=== PATIENT | male | born 1960 | race Two or more races ===

== ENCOUNTER 2018-02-03 13:14 | Inpatient (IN) | payer MEDICAID ==
[~2018-02-03] VITALS: Ht 172.7 cm; Wt 103.3 kg
[2018-02-03] MEDS ORDERED: ONDANSETRON HCL 4 MG/2 ML VIAL IV ONE (13:30)
[2018-02-03] MEDS ORDERED: ASPirin 81 mg TAB PO ONE (13:30)
[2018-02-03 13:52] LABS: Basophils # (auto) 0.1 uL; Eosinophils # (auto) 0.2 uL; Eosinophils % (auto) 3.1 % (0.0-7.0); Hematocrit 44.6 % (41.0-53.0); Hemoglobin 15.1 g/dL (13.5-17.5); Lymphocytes # (auto) 2.5 uL; Lymphocytes % (auto) 32.7 % (10.0-50.0); Mean Corpuscular Hemoglobin 29.8 pg (28.0-32.0); Mean Corpuscular Hgb Conc. 33.9 g/dL (32.0-36.0); Mean Corpuscular Volume 87.7 fL (80.0-100.0); Monocytes # (auto) 0.6 uL; Monocytes % (auto) 8.4 % (0.0-12.0); Neutrophils # (auto) 4.2 uL; Neutrophils % (auto) 54.8 % (37.0-80.0); Platelet Count (auto) 252 10^3/uL (140-450); Red Blood Cells 5.09 10^6/uL (4.5-5.90); Red Cell Distribution Width 13.4 % (11.8-14.3); White Blood Cell 7.7 10^3/uL (4.4-10.8)
[2018-02-03 14:10] LABS: Alanine Aminotransferase 49 U/L (16-61); Albumin 3.5 g/dL (3.4-5.0); Anion Gap 13 (5-15); Aspartate Aminotransferase 22 U/L (15-37); BUN/Creatinine Ratio 11.5; Blood Urea Nitrogen 13 mg/dL (7-18); Calcium 8.1 mg/dL (8.5-10.1); Carbon Dioxide 19 mmol/L (21-32); Chloride 104 mmol/L (98-107); GFR African American 86 mL/min; GFR Non-African American 71 mL/min; Glucose 254 mg/dL (74-106); Magnesium 1.7 mg/dL (1.6-2.6); Sodium 136 mmol/L (136-145)
[2018-02-03 14:11] LABS: INR 1.01 (0.9-1.15); Prothrombin Time 10.8 sec (9.27-12.13)
[2018-02-03 14:15] LABS: Alkaline Phosphatase 94 U/L (45-117); Bilirubin, Total 0.8 mg/dL (0.2-1.0); Total Protein 7.7 g/dL (6.4-8.2)
[2018-02-03] MEDS ORDERED: DEXTROSE (50%) 50ML SYRG IV PRN (19:00)
[2018-02-03] MEDS ORDERED: ZOLPIDEM TARTRATE 5 MG TAB PO PRN (19:00)
[2018-02-03] MEDS ORDERED: MORPHINE SULFATE 8mg/ml INJ SDV IV PRN ×2 (19:00)
[2018-02-03] MEDS ORDERED: ACETAMINOPHEN 325 MG TAB PO PRN (19:00)
[2018-02-03] MEDS ORDERED: ALUM & MAG HYDROX-SIMETH LIQ(MAALOX) 30 ML PO ONE (19:00)
[2018-02-03] MEDS ORDERED: NITROGLYCERIN 0.4 MG SL TAB SL PRN ×2 (19:00)
[2018-02-03] MEDS ORDERED: ONDANSETRON HCL 4 MG/2 ML VIAL IV PRN (19:00)
[2018-02-03] MEDS ORDERED: LORazepam 0.5 MG TAB PO PRN (19:00)
[2018-02-03 20:05] VITALS: BP 111/66
[2018-02-03] MEDS: SODIUM CHLOR 0.9% PF (SALINE LOCK) 10ML VIAL/SYR IV SCH (21:57)
[2018-02-03] MEDS: ATORVASTATIN 20 MG TAB PO SCH (21:58)
[2018-02-03] MEDS: CARVEDILOL 3.125 MG TAB PO SCH (21:58)
[2018-02-03] MEDS: ACCU-CHEK COMFORT CURVE STRIP VI SCH (21:58)
[2018-02-03] MEDS: ENALAPRIL MALEATE 2.5 MG TAB PO SCH (21:58)
[2018-02-03 22:00] VITALS: BP 111/66
[2018-02-03] MEDS: InsuLIN REG 1unit/0.01ml Soln (100units/ml) SC SCH (22:04)
[2018-02-03] MEDS ORDERED: METF-372 PO (23:18)
[2018-02-04 03:20] VITALS: BP 111/66
[2018-02-04 05:00] VITALS: BP 98/66
[2018-02-04 05:57] LABS: Basophils # (auto) 0.1 uL; Basophils % (auto) 0.9 % (0.0-2.0); Eosinophils # (auto) 0.3 uL; Eosinophils % (auto) 4.3 % (0.0-7.0); Hematocrit 41.3 % (41.0-53.0); Hemoglobin 14.2 g/dL (13.5-17.5); Lymphocytes # (auto) 2.7 uL; Lymphocytes % (auto) 35.5 % (10.0-50.0); Mean Corpuscular Hgb Conc. 34.4 g/dL (32.0-36.0); Mean Corpuscular Volume 87.1 fL (80.0-100.0); Monocytes # (auto) 0.7 uL; Monocytes % (auto) 9.4 % (0.0-12.0); Neutrophils # (auto) 3.8 uL; Neutrophils % (auto) 49.9 % (37.0-80.0); Nucleated Red Blood Cells % 0.2 %; Platelet Count (auto) 208 10^3/uL (140-450); Red Blood Cells 4.74 10^6/uL (4.5-5.90); Red Cell Distribution Width 13.1 % (11.8-14.3); White Blood Cell 7.6 10^3/uL (4.4-10.8)
[2018-02-04 06:16] LABS: Alanine Aminotransferase 42 U/L (16-61); Albumin 3.2 g/dL (3.4-5.0); Alkaline Phosphatase 87 U/L (45-117); Anion Gap 10 (5-15); Aspartate Aminotransferase 19 U/L (15-37); BUN/Creatinine Ratio 16.9; Bilirubin, Total 0.5 mg/dL (0.2-1.0); Blood Urea Nitrogen 15 mg/dL (7-18); Calcium 8.2 mg/dL (8.5-10.1); Carbon Dioxide 25 mmol/L (21-32); Chloride 102 mmol/L (98-107); Cholesterol 181 mg/dL (< 200); GFR African American 113 mL/min; GFR Non-African American 93 mL/min; Glucose 174 mg/dL (74-106); HDL Cholesterol 29 mg/dL (40-59); LDL Cholesterol 120 mg/dL (< 100); Magnesium 2.1 mg/dL (1.6-2.6); Potassium 3.8 mmol/L (3.5-5.1); Sodium 137 mmol/L (136-145); Total Protein 6.9 g/dL (6.4-8.2); Triglycerides 307 mg/dL (< 150)
[2018-02-04] MEDS: SODIUM CHLOR 0.9% PF (SALINE LOCK) 10ML VIAL/SYR IV SCH ×3 (06:23→21:42)
[2018-02-04] MEDS: ACCU-CHEK COMFORT CURVE STRIP VI SCH ×4 (06:29→21:44)
[2018-02-04] MEDS: InsuLIN REG 1unit/0.01ml Soln (100units/ml) SC SCH ×4 (06:29→21:54)
[2018-02-04] MEDS: ALBUTEROL SULF 2.5 MG/0.5ML(0.5%) NEB SOLN NEB SCH ×4 (08:00→20:09)
[2018-02-04 09:00] VITALS: BP 106/62
[2018-02-04] MEDS: CLOPIDOGREL BISULFATE 75 MG TAB PO SCH (09:43)
[2018-02-04] MEDS: DOCUSATE SOD 100 MG CAP PO SCH (09:43)
[2018-02-04] MEDS: ASPirin 81 mg TAB PO SCH (09:43)
[2018-02-04] MEDS: CARVEDILOL 3.125 MG TAB PO SCH ×2 (09:45→21:43)
[2018-02-04] MEDS: ENALAPRIL MALEATE 2.5 MG TAB PO SCH ×2 (09:46→21:44)
[2018-02-04 10:38] LABS: Urine Bacteria NONE SEEN /hpf (None Seen); Urine Blood Negative /uL (Negative); Urine Mucus FEW (None Seen); Urine Specific Gravity 1.022 (1.001-1.035); Urine WBC 1 /hpf (0 - 3)
[2018-02-04 13:00] VITALS: BP 102/55
[2018-02-04 16:53] VITALS: BP 110/74
[2018-02-04] MEDS: ATORVASTATIN 20 MG TAB PO SCH (21:43)
[2018-02-04 22:03] VITALS: BP 106/64
[2018-02-05] MEDS: ALBUTEROL SULF 2.5 MG/0.5ML(0.5%) NEB SOLN NEB SCH ×3 (00:38→11:57)
[2018-02-05 04:36] VITALS: BP 97/53
[2018-02-05] MEDS: ACCU-CHEK COMFORT CURVE STRIP VI SCH ×2 (06:08→12:25)
[2018-02-05] MEDS: SODIUM CHLOR 0.9% PF (SALINE LOCK) 10ML VIAL/SYR IV SCH (06:08)
[2018-02-05] MEDS: InsuLIN REG 1unit/0.01ml Soln (100units/ml) SC SCH ×2 (06:22→12:25)
[2018-02-05 08:36] VITALS: BP 107/73
[2018-02-05] MEDS: CARVEDILOL 3.125 MG TAB PO SCH (10:00)
[2018-02-05] MEDS: ENALAPRIL MALEATE 2.5 MG TAB PO SCH (10:00)
[2018-02-05 10:13] VITALS: BP 127/85
[2018-02-05] MEDS: DOCUSATE SOD 100 MG CAP PO SCH (12:23)
[2018-02-05] MEDS: ASPirin 81 mg TAB PO SCH (12:23)
[2018-02-05] MEDS: CLOPIDOGREL BISULFATE 75 MG TAB PO SCH (12:23)
[2018-02-05 12:57] VITALS: BP 103/76
[2018-02-05 14:34] VITALS: BP 103/76
== END 2018-02-05 17:20 | disposition home or self-care (01) | DRG 198 ==
LOC: ER 13:14 → TELE 13:15 → TELE-WESTW 20:05
PROVIDERS: ADMIT Internal Medicine; ATTEND Family Medicine
DX: I25.110 Atherosclerotic heart disease of native coronary artery with unstable angina pectoris (principal); E11.21 Type 2 diabetes mellitus with diabetic nephropathy; D68.69 Other thrombophilia; E11.22 Type 2 diabetes mellitus with diabetic chronic kidney disease; E11.65 Type 2 diabetes mellitus with hyperglycemia; I25.2 Old myocardial infarction; I12.9 Hypertensive chronic kidney disease with stage 1 through stage 4 chronic kidney disease, or unspecified chronic kidney disease; E83.51 Hypocalcemia; N18.2 Chronic kidney disease, stage 2 (mild); E66.9 Obesity, unspecified; E78.00 Pure hypercholesterolemia, unspecified; Z82.49 Family history of ischemic heart disease and other diseases of the circulatory system; Z83.3 Family history of diabetes mellitus; Z79.899 Other long term (current) drug therapy; Z79.82 Long term (current) use of aspirin; Z79.4 Long term (current) use of insulin; Z68.34 Body mass index [BMI] 34.0-34.9, adult
CPT/HCPCS: 36415; 71045; 78452; 80053; 80061; 81001; 82962; 83036; 83735; 83880; 84443; 84484; 85025; 85379; 85610; 85730; 93005; 93017; 93306; 94640; 94761; 96374; J1815; J2405

== ENCOUNTER 2020-12-24 13:27 | Inpatient (IN) | payer MEDICARE, MEDICAID ==
[~2020-12-24] VITALS: Ht 170.2 cm; Wt 101.8 kg
[~2020-12-24 13:27] MED LIST: ALBUAER3 IN; METF-372 PO
[2020-12-24] MEDS ORDERED: SODIUM CHLORIDE 0.9% 1,000 ML IV ONE (13:45)
[2020-12-24 14:21] LABS: Basophils # (auto) 0.1 10 ^3/uL (0-0.2); Basophils % (auto) 0.7 % (0.0-2.0); Eosinophils # (auto) 0.3 10 ^3/uL (0-0.8); Eosinophils % (auto) 2.9 % (0.0-7.0); Hematocrit 49.2 % (41.0-53.0); Hemoglobin 16.9 g/dL (13.5-17.5); Lymphocytes # (auto) 2.5 10 ^3/uL (0.4-5.4); Lymphocytes % (auto) 24.1 % (10.0-50.0); Mean Corpuscular Hemoglobin 29.5 pg (28.0-32.0); Mean Corpuscular Hgb Conc. 34.2 g/dL (32.0-36.0); Mean Corpuscular Volume 86.1 fL (80.0-100.0); Monocytes # (auto) 0.7 10 ^3/uL (0-1.3); Monocytes % (auto) 7.3 % (0.0-12.0); Neutrophils # (auto) 6.7 10 ^3/uL (1.6-8.6); Nucleated Red Blood Cells % 0.1 %; Platelet Count (auto) 263 10^3/uL (140-450); Red Blood Cells 5.72 10^6/uL (4.5-5.90); Red Cell Distribution Width 12.9 % (11.8-14.3); White Blood Cell 10.3 10^3/uL (4.4-10.8)
[2020-12-24 14:35] LABS: Albumin 4.1 g/dL (3.4-5.0); Calcium 9.4 mg/dL (8.5-10.1); Potassium 4.1 mmol/L (3.5-5.1)
[2020-12-24 14:38] LABS: BUN/Creatinine Ratio 15.3; Bilirubin, Total 1.6 mg/dL (0.2-1.0); Total Protein 8.4 g/dL (6.4-8.2)
[2020-12-24 14:55] LABS: Urine WBC None Seen /hpf (0 - 3)
[2020-12-24 15:17] LABS: Urine Bacteria NONE SEEN /hpf (None Seen); Urine Blood Negative /uL (Negative); Urine Specific Gravity 1.033 (1.001-1.035)
[2020-12-24] MEDS ORDERED: NITROGLYCERIN 0.4 MG SL TAB SL PRN (18:30)
[2020-12-24] MEDS ORDERED: LORazepam 0.5 MG TAB PO PRN (18:30)
[2020-12-24] MEDS ORDERED: MORPHINE SULF INJ 2 MG/ML SYRINGE 1ML IV PRN (18:30)
[2020-12-24] MEDS ORDERED: ONDANSETRON HCL 4 MG/2 ML VIAL IV PRN (18:30)
[2020-12-24] MEDS ORDERED: ACETAMINOPHEN 500 MG TAB PO PRN (18:30)
[2020-12-24] MEDS ORDERED: LABETALOL HCL 5 MG/ML 4ML SYRINGE IV PRN (18:30)
[2020-12-24] MEDS ORDERED: DOCUSATE CALCIUM 240 MG CAP PO PRN (18:30)
[2020-12-24] MEDS ORDERED: MORPHINE SULFATE 4 MG/ML SYR/VIAL IV PRN (18:30)
[2020-12-24] MEDS ORDERED: SODIUM CHLORIDE 0.9% 2,000 ML IV ONE (18:30)
[2020-12-24] MEDS ORDERED: DEXTROSE (50%) 50ML SYRG IV PRN (18:30)
[2020-12-24 18:56] VITALS: BP 98/62
[2020-12-24] MEDS: BUDESONIDE (INHALATION) 0.5 MG/2 ML NEB NEB SCH (19:51)
[2020-12-24] MEDS: ALBUTEROL SULF 2.5 MG/0.5ML(0.5%) NEB SOLN NEB PRN (19:52)
[2020-12-24] MEDS: InsuLIN REG 1unit/0.01ml Soln (100units/ml) SC SCH ×2 (20:59→23:51)
[2020-12-24] MEDS: ACCU-CHEK COMFORT CURVE STRIP VI SCH ×2 (21:00→23:55)
[2020-12-24] MEDS ORDERED: INSULIN LANTUS (GLARGINE) 1 /0.01ml (100units/ml) SC SCH (22:00)
[2020-12-25 00:25] VITALS: BP 98/57
[2020-12-25] MEDS ORDERED: ASPI-543 PO (01:40)
[2020-12-25] MEDS ORDERED: COLCPOW2 PO (01:40)
[2020-12-25] MEDS ORDERED: GABA-339 PO (01:40)
[2020-12-25] MEDS ORDERED: ALOG1TAB2 PO (01:40)
[2020-12-25] MEDS ORDERED: EMPA1TAB3 PO (01:40)
[2020-12-25] MEDS ORDERED: METO25TA5 PO (01:40)
[2020-12-25] MEDS ORDERED: ATOR-47 PO (01:40)
[2020-12-25] MEDS ORDERED: LISI-275 PO (01:40)
[2020-12-25] MEDS ORDERED: PIOG15TA38 PO (01:40)
[2020-12-25] MEDS: SODIUM CHLORIDE 0.9% 1,000 ML IV SCH ×2 (02:30→10:29)
[2020-12-25 05:00] VITALS: BP 91/55
[2020-12-25] MEDS: ACCU-CHEK COMFORT CURVE STRIP VI SCH ×4 (05:04→16:00)
[2020-12-25] MEDS: InsuLIN REG 1unit/0.01ml Soln (100units/ml) SC SCH ×4 (05:05→16:00)
[2020-12-25] MEDS: ALBUTEROL SULF 2.5 MG/0.5ML(0.5%) NEB SOLN NEB PRN (07:38)
[2020-12-25] MEDS: BUDESONIDE (INHALATION) 0.5 MG/2 ML NEB NEB SCH (07:38)
[2020-12-25 07:59] LABS: INR 1.11 (0.9-1.15); Potassium 3.5 mmol/L (3.5-5.1)
[2020-12-25 08:00] LABS: Basophils # (auto) 0 10 ^3/uL (0-0.2); Basophils % (auto) 0.4 % (0.0-2.0); Eosinophils # (auto) 0.3 10 ^3/uL (0-0.8); Eosinophils % (auto) 3.8 % (0.0-7.0); Hematocrit 41.7 % (41.0-53.0); Hemoglobin 14.5 g/dL (13.5-17.5); Lymphocytes # (auto) 1.9 10 ^3/uL (0.4-5.4); Mean Corpuscular Hemoglobin 29.8 pg (28.0-32.0); Mean Corpuscular Hgb Conc. 34.7 g/dL (32.0-36.0); Mean Corpuscular Volume 85.9 fL (80.0-100.0); Monocytes # (auto) 0.4 10 ^3/uL (0-1.3); Monocytes % (auto) 6.4 % (0.0-12.0); Neutrophils # (auto) 4.3 10 ^3/uL (1.6-8.6); Neutrophils % (auto) 62.4 % (37.0-80.0); Nucleated Red Blood Cells % 0.1 %; Platelet Count (auto) 203 10^3/uL (140-450); Red Blood Cells 4.85 10^6/uL (4.5-5.90); Red Cell Distribution Width 12.7 % (11.8-14.3)
[2020-12-25 08:03] LABS: BUN/Creatinine Ratio 21.2; Bilirubin, Total 1.3 mg/dL (0.2-1.0); Total Protein 6.3 g/dL (6.4-8.2)
[2020-12-25 09:00] VITALS: BP 104/70
[2020-12-25] MEDS ORDERED: ENOXAPARIN SOD 40 MG/0.4 ML SYRINGE SC SCH (10:00)
[2020-12-25] MEDS ORDERED: PANTOPRAZOLE 40 MG TAB PO SCH (10:00)
[2020-12-25 16:53] VITALS: BP 109/77
== END 2020-12-25 17:00 | disposition left against medical advice (07) | DRG 638 ==
LOC: ER 13:27 → TELE 18:20 → TELE-CENTR 22:04
PROVIDERS: ADMIT Family Medicine; ATTEND Internal Medicine
DX: E11.65 Type 2 diabetes mellitus with hyperglycemia (principal); E87.1 Hypo-osmolality and hyponatremia; I13.0 Hypertensive heart and chronic kidney disease with heart failure and stage 1 through stage 4 chronic kidney disease, or unspecified chronic kidney disease; I30.9 Acute pericarditis, unspecified; I50.32 Chronic diastolic (congestive) heart failure; N18.2 Chronic kidney disease, stage 2 (mild); J45.909 Unspecified asthma, uncomplicated; Z53.29 Procedure and treatment not carried out because of patient's decision for other reasons; Z20.822 Contact with and (suspected) exposure to COVID-19; E11.22 Type 2 diabetes mellitus with diabetic chronic kidney disease; E66.9 Obesity, unspecified; Z68.35 Body mass index [BMI] 35.0-35.9, adult; E78.00 Pure hypercholesterolemia, unspecified; E78.5 Hyperlipidemia, unspecified; E86.0 Dehydration; I25.2 Old myocardial infarction; I25.10 Atherosclerotic heart disease of native coronary artery without angina pectoris; J44.9 Chronic obstructive pulmonary disease, unspecified; M10.9 Gout, unspecified; Z83.3 Family history of diabetes mellitus; Z87.891 Personal history of nicotine dependence
CPT/HCPCS: 36415; 80053; 81001; 82962; 83036; 83880; 85025; 85610; 87426; 93005; 94640; 96360; 96361; G0378; J1815

== ENCOUNTER 2021-01-05 02:33 | Inpatient (IN) | payer MEDICARE, MEDICAID ==
[~2021-01-05] VITALS: Ht 170.2 cm; Wt 105.3 kg
[~2021-01-05 02:33] MED LIST changes: +ALOG1TAB2 PO; +ASPI-543 PO; +ATOR-47 PO; +COLCPOW2 PO; +EMPA1TAB3 PO; +GABA-339 PO; +LISI-275 PO; +METO25TA5 PO; +PIOG15TA38 PO
[2021-01-05 03:14] LABS: Basophils # (auto) 0.2 10 ^3/uL (0-0.2); Basophils % (auto) 1.2 % (0.0-2.0); Eosinophils # (auto) 0.1 10 ^3/uL (0-0.8); Eosinophils % (auto) 0.7 % (0.0-7.0); Hematocrit 47.1 % (41.0-53.0); Hemoglobin 16.2 g/dL (13.5-17.5); Lymphocytes # (auto) 1.6 10 ^3/uL (0.4-5.4); Lymphocytes % (auto) 12.1 % (10.0-50.0); Mean Corpuscular Hemoglobin 29.5 pg (28.0-32.0); Mean Corpuscular Hgb Conc. 34.4 g/dL (32.0-36.0); Mean Corpuscular Volume 85.9 fL (80.0-100.0); Monocytes # (auto) 0.6 10 ^3/uL (0-1.3); Monocytes % (auto) 4.5 % (0.0-12.0); Neutrophils # (auto) 10.6 10 ^3/uL (1.6-8.6); Neutrophils % (auto) 81.5 % (37.0-80.0); Nucleated Red Blood Cells % 0.2 %; Red Blood Cells 5.48 10^6/uL (4.5-5.90); Red Cell Distribution Width 13.2 % (11.8-14.3)
[2021-01-05 03:35] LABS: Albumin 3.8 g/dL (3.4-5.0); Amylase 38 U/L (25-115); Anion Gap 13 (5-15); Blood Urea Nitrogen 18 mg/dL (7-18); Calcium 9.1 mg/dL (8.5-10.1); Carbon Dioxide 21 mmol/L (21-32); Chloride 105 mmol/L (98-107); GFR African American 110 mL/min; GFR Non-African American 91 mL/min; Glucose 170 mg/dL (74-106); Lipase 71 U/L (73-393); Magnesium 1.9 mg/dL (1.6-2.6); Potassium 3.6 mmol/L (3.5-5.1); Sodium 139 mmol/L (136-145)
[2021-01-05 03:41] LABS: Alanine Aminotransferase 40 U/L (16-61); Alkaline Phosphatase 102 U/L (45-117); Aspartate Aminotransferase 22 U/L (15-37); Bilirubin, Total 1.3 mg/dL (0.2-1.0); Total Protein 7.9 g/dL (6.4-8.2)
[2021-01-05] MEDS ORDERED: HYDROmorphone HCL 2 MG/ML VL IV ONE (04:00)
[2021-01-05] MEDS ORDERED: SODIUM CHLORIDE 0.9% 1,000 ML IV ONE (04:00)
[2021-01-05] MEDS ORDERED: metroNIDAZOLE 500MG/100ML 100 ML IV ONE (04:00)
[2021-01-05] MEDS ORDERED: CIPROFLOXACIN 400MG/200ML 200 ML IV ONE (04:00)
[2021-01-05] MEDS ORDERED: ONDANSETRON HCL 4 MG/2 ML VIAL IV ONE (04:00)
[2021-01-05 04:32] LABS: Urine Bacteria NONE SEEN /hpf (None Seen); Urine Blood Negative /uL (Negative); Urine Specific Gravity 1.037 (1.001-1.035); Urine WBC <1 /hpf (0 - 3)
[2021-01-05] MEDS ORDERED: DEXTROSE (50%) 50ML SYRG IV PRN (05:30)
[2021-01-05] MEDS ORDERED: MORPHINE SULFATE INJECTION 2 MG/ML SYRG IV PRN (05:30)
[2021-01-05] MEDS ORDERED: ONDANSETRON HCL 4 MG/2 ML VIAL IV PRN (05:30)
[2021-01-05 05:54] LABS: INR 1.08 (0.9-1.15)
[2021-01-05] MEDS ORDERED: metroNIDAZOLE 500MG/100ML 100 ML IV SCH (06:00)
[2021-01-05] MEDS: SODIUM CHLORIDE 0.9% 1,000 ML IV SCH ×2 (06:01→17:25)
[2021-01-05] MEDS: ACCU-CHEK COMFORT CURVE STRIP VI SCH ×4 (06:01→23:42)
[2021-01-05] MEDS: InsuLIN REG 1unit/0.01ml Soln (100units/ml) SC SCH ×4 (06:13→23:42)
[2021-01-05] MEDS: cefTRIAXone 1GM/50ML D5W 50 ML IV SCH (08:30)
[2021-01-05] MEDS: PANTOPRAZOLE 40 MG/10 ML VIAL INJ IV SCH (10:46)
[2021-01-05] MEDS ORDERED: ceFAZolin 1GM/50ML 50 ML IV ONE (12:49)
[2021-01-05] MEDS: metroNIDAZOLE 500MG/100ML 100 ML IV SCH ×2 (12:55→20:45)
[2021-01-05] MEDS ORDERED: BUPIVACAINE W/ EPINEPH 0.5% MPF 30ML VIAL IJ ONE (13:25)
[2021-01-05] MEDS ORDERED: ONDANSETRON HCL 4 MG/2 ML VIAL ONE (13:41)
[2021-01-05] MEDS ORDERED: PROPOFOL 10 MG/ML 20 ML IV ONE (13:41)
[2021-01-05] MEDS ORDERED: SODIUM CHLORIDE LOCK 10 ML ONE (13:41)
[2021-01-05] MEDS ORDERED: MIDAZOLAM HCL 2MG/2ML 2ml VIAL (1mg/ml) ONE (13:41)
[2021-01-05] MEDS ORDERED: MEPERIDINE HCL (25 MG/ML) 1ML VIAL ONE (13:41)
[2021-01-05] MEDS ORDERED: fentaNYL CITRATE 100 MCG/2 ML VL ONE (13:41)
[2021-01-05] MEDS ORDERED: ROCURONIUM 10MG/ML 10ML VIAL IV ONE (13:41)
[2021-01-05] MEDS ORDERED: GLYCOPYRROLATE 0.2 MG/ML 1ML VIAL ONE (14:22)
[2021-01-05] MEDS ORDERED: NEOSTIGMINE 1 MG/ML INJ (10mg/10ML VIAL) ONE (14:22)
[2021-01-05] MEDS ORDERED: METOCLOPRAMIDE HCL 5MG/ml INJ 2ml VIAL IV PRN (15:00)
[2021-01-05] MEDS ORDERED: ACCU-CHEK COMFORT CURVE STRIP VI ONE (15:00)
[2021-01-05] MEDS ORDERED: MORPHINE SULFATE 4 MG/ML SYR/VIAL IV PRN (15:00)
[2021-01-05] MEDS ORDERED: HYDROmorphone HCL 2 MG/ML VL IV PRN (15:00)
[2021-01-05 17:00] VITALS: BP 136/83
[2021-01-05 18:07] VITALS: BP 136/83
[2021-01-05] MEDS: MORPHINE SULFATE INJECTION 2 MG/ML SYRG IV PRN (20:57)
[2021-01-05 22:00] VITALS: BP 110/56
[2021-01-06] MEDS: metroNIDAZOLE 500MG/100ML 100 ML IV SCH ×3 (03:47→20:09)
[2021-01-06] MEDS: SODIUM CHLORIDE 0.9% 1,000 ML IV SCH ×2 (04:21→16:30)
[2021-01-06 05:00] VITALS: BP 105/64
[2021-01-06 05:57] LABS: Basophils # (auto) 0 10 ^3/uL (0-0.2); Basophils % (auto) 0.3 % (0.0-2.0); Eosinophils # (auto) 0 10 ^3/uL (0-0.8); Hematocrit 41.4 % (41.0-53.0); Hemoglobin 14.4 g/dL (13.5-17.5); Lymphocytes # (auto) 0.9 10 ^3/uL (0.4-5.4); Mean Corpuscular Hgb Conc. 34.8 g/dL (32.0-36.0); Mean Corpuscular Volume 86.2 fL (80.0-100.0); Monocytes # (auto) 0.6 10 ^3/uL (0-1.3); Monocytes % (auto) 5.2 % (0.0-12.0); Neutrophils # (auto) 10.2 10 ^3/uL (1.6-8.6); Neutrophils % (auto) 86.5 % (37.0-80.0); White Blood Cell 11.8 10^3/uL (4.4-10.8)
[2021-01-06] MEDS: cefTRIAXone 1GM/50ML D5W 50 ML IV SCH (05:58)
[2021-01-06] MEDS: ACCU-CHEK COMFORT CURVE STRIP VI SCH ×4 (05:58→23:48)
[2021-01-06] MEDS: InsuLIN REG 1unit/0.01ml Soln (100units/ml) SC SCH ×4 (06:00→23:52)
[2021-01-06] MEDS: MORPHINE SULFATE INJECTION 2 MG/ML SYRG IV PRN ×3 (06:07→21:48)
[2021-01-06 06:18] LABS: Potassium 4.3 mmol/L (3.5-5.1)
[2021-01-06 06:25] LABS: Albumin 3.1 g/dL (3.4-5.0); BUN/Creatinine Ratio 21.2; Bilirubin, Total 1.9 mg/dL (0.2-1.0); Calcium 8.4 mg/dL (8.5-10.1); Total Protein 6.9 g/dL (6.4-8.2)
[2021-01-06 09:00] VITALS: BP 106/67
[2021-01-06] MEDS: PANTOPRAZOLE 40 MG/10 ML VIAL INJ IV SCH (09:11)
[2021-01-06] MEDS ORDERED: DOCUSATE SOD 100 MG CAP PO PRN (10:15)
[2021-01-06] MEDS: HYDROcodone-ACET 5/325MG TAB PO PRN ×3 (11:50→23:49)
[2021-01-06 13:00] VITALS: BP 104/64
[2021-01-06 17:00] VITALS: BP 107/67
[2021-01-06] MEDS ORDERED: DULA0.5I SC (17:55)
[2021-01-06] MEDS ORDERED: ACET1CAP14 PO (18:01)
[2021-01-06 22:00] VITALS: BP 108/65
[2021-01-06] MEDS ORDERED: SENNA 8.6 MG TAB PO SCH (22:00)
[2021-01-07] MEDS: metroNIDAZOLE 500MG/100ML 100 ML IV SCH ×2 (04:13→12:03)
[2021-01-07] MEDS: SODIUM CHLORIDE 0.9% 1,000 ML IV SCH (04:13)
[2021-01-07 05:00] VITALS: BP 115/66
[2021-01-07 06:01] LABS: Basophils # (auto) 0.1 10 ^3/uL (0-0.2); Basophils % (auto) 0.6 % (0.0-2.0); Eosinophils # (auto) 0.1 10 ^3/uL (0-0.8); Eosinophils % (auto) 0.9 % (0.0-7.0); Hematocrit 39.5 % (41.0-53.0); Hemoglobin 13.7 g/dL (13.5-17.5); Lymphocytes # (auto) 2.3 10 ^3/uL (0.4-5.4); Lymphocytes % (auto) 24.9 % (10.0-50.0); Mean Corpuscular Hemoglobin 30.2 pg (28.0-32.0); Mean Corpuscular Hgb Conc. 34.6 g/dL (32.0-36.0); Mean Corpuscular Volume 87.3 fL (80.0-100.0); Monocytes # (auto) 0.7 10 ^3/uL (0-1.3); Monocytes % (auto) 7.4 % (0.0-12.0); Neutrophils # (auto) 6.1 10 ^3/uL (1.6-8.6); Neutrophils % (auto) 66.2 % (37.0-80.0); Nucleated Red Blood Cells % 0.2 %; Red Blood Cells 4.52 10^6/uL (4.5-5.90); Red Cell Distribution Width 13.3 % (11.8-14.3); White Blood Cell 9.3 10^3/uL (4.4-10.8)
[2021-01-07] MEDS: ACCU-CHEK COMFORT CURVE STRIP VI SCH ×2 (06:17→12:05)
[2021-01-07] MEDS: cefTRIAXone 1GM/50ML D5W 50 ML IV SCH (06:17)
[2021-01-07] MEDS: InsuLIN REG 1unit/0.01ml Soln (100units/ml) SC SCH ×2 (06:18→12:11)
[2021-01-07] MEDS: MORPHINE SULFATE INJECTION 2 MG/ML SYRG IV PRN (06:24)
[2021-01-07 06:26] LABS: Potassium 3.7 mmol/L (3.5-5.1)
[2021-01-07 06:36] LABS: BUN/Creatinine Ratio 18.8; Calcium 7.4 mg/dL (8.5-10.1)
[2021-01-07 09:10] VITALS: BP 94/61
[2021-01-07] MEDS: PANTOPRAZOLE 40 MG/10 ML VIAL INJ IV SCH (09:54)
[2021-01-07] MEDS: HYDROcodone-ACET 5/325MG TAB PO PRN (10:01)
[2021-01-07] MEDS ORDERED: AMOX500T86 PO (11:36)
[2021-01-07 13:00] VITALS: BP 115/65
[2021-01-07 15:40] VITALS: BP 115/65
== END 2021-01-07 16:25 | disposition home or self-care (01) | DRG 418 ==
LOC: ER 02:34 → OVERFLOW 05:21 → WEST WING 13:14
PROVIDERS: ADMIT Nurse Practitioner; ATTEND Internal Medicine Pulmonary Disease
PROC: 0FT44ZZ Resection of Gallbladder, Percutaneous Endoscopic Approach (ICD-10-PCS; principal; 2021-01-05 13:45)
DX: K80.00 Calculus of gallbladder with acute cholecystitis without obstruction (principal); J98.11 Atelectasis; D72.829 Elevated white blood cell count, unspecified; E11.9 Type 2 diabetes mellitus without complications; Z20.822 Contact with and (suspected) exposure to COVID-19; E66.01 Morbid (severe) obesity due to excess calories; E78.5 Hyperlipidemia, unspecified; I25.10 Atherosclerotic heart disease of native coronary artery without angina pectoris; J44.9 Chronic obstructive pulmonary disease, unspecified; M10.9 Gout, unspecified; I10 Essential (primary) hypertension; Z83.3 Family history of diabetes mellitus; Z87.891 Personal history of nicotine dependence
CPT/HCPCS: 36415; 71045; 74176; 80048; 80053; 81001; 82150; 82247; 82962; 83690; 83735; 84484; 85025; 85610; 86850; 86900; 86901; 87081; 87426; 93005; 96365; 96366; 96367; 96372; 96375; C9113; G0378; J0690; J0696; J1815; J2250; J2405; J2704; J3490

== ENCOUNTER 2021-09-03 10:22 | Emergency (ER) | payer MEDICAID, MEDICARE ==
[~2021-09-03] VITALS: Ht 170.2 cm; Wt 96.2 kg
[~2021-09-03 10:22] MED LIST changes: +ACET1CAP14 PO; +AMOX500T86 PO; -COLCPOW2 PO; +DULA0.5I SC
[2021-09-03 13:39] VITALS: BP 116/71
[2021-09-03] MEDS ORDERED: METH4PAK PO (16:38)
[2021-09-03] MEDS ORDERED: AZIT500T66 PO (16:38)
[2021-09-03] MEDS ORDERED: ACET-1080 PO (16:39)
== END 2021-09-03 16:50 | disposition home or self-care (01) ==
LOC: ER 10:22
DX: U07.1 COVID-19 (principal); M79.10 Myalgia, unspecified site; R06.02 Shortness of breath; J44.9 Chronic obstructive pulmonary disease, unspecified; E11.9 Type 2 diabetes mellitus without complications; E78.5 Hyperlipidemia, unspecified; I10 Essential (primary) hypertension; Z87.891 Personal history of nicotine dependence
CPT/HCPCS: 36415; 71046; 87426; 93005

== ENCOUNTER 2021-10-26 12:54 | Inpatient (IN) | payer MEDICARE, MEDICAID ==
[~2021-10-26] VITALS: Ht 170.2 cm; Wt 98.3 kg
[~2021-10-26 12:54] MED LIST changes: +ACET-1080 PO; +AZIT500T66 PO; +METH4PAK PO
[2021-10-26] MEDS ORDERED: ASPirin 81 mg TAB PO ONE (13:15)
[2021-10-26] MEDS ORDERED: methylPREDNISolone SOD SUCC 125 MG/2 ML VL IV ONE (13:15)
[2021-10-26 14:50] LABS: Basophils # (auto) 0.1 10 ^3/uL (0-0.2); Basophils % (auto) 0.8 % (0.0-2.0); Eosinophils # (auto) 0.5 10 ^3/uL (0-0.8); Eosinophils % (auto) 6.7 % (0.0-7.0); Hematocrit 49.6 % (41.0-53.0); Hemoglobin 16.6 g/dL (13.5-17.5); Lymphocytes % (auto) 25.7 % (10.0-50.0); Mean Corpuscular Hemoglobin 29.2 pg (28.0-32.0); Mean Corpuscular Hgb Conc. 33.5 g/dL (32.0-36.0); Mean Corpuscular Volume 87.2 fL (80.0-100.0); Monocytes # (auto) 0.5 10 ^3/uL (0-1.3); Monocytes % (auto) 6.9 % (0.0-12.0); Neutrophils # (auto) 4.6 10 ^3/uL (1.6-8.6); Neutrophils % (auto) 59.9 % (37.0-80.0); Nucleated Red Blood Cells % 0.1 %; Red Blood Cells 5.68 10^6/uL (4.5-5.90); Red Cell Distribution Width 13.3 % (11.8-14.3); White Blood Cell 7.7 10^3/uL (4.4-10.8)
[2021-10-26 15:03] LABS: Albumin 4.1 g/dL (3.4-5.0); Calcium 9.1 mg/dL (8.5-10.1); Potassium 4.4 mmol/L (3.5-5.1)
[2021-10-26 15:25] LABS: BUN/Creatinine Ratio 16.7; Bilirubin, Total 1.5 mg/dL (0.2-1.0); Total Protein 8.3 g/dL (6.4-8.2)
[2021-10-26] MEDS ORDERED: NITROGLYCERIN 0.4 MG SL TAB SL PRN (16:45)
[2021-10-26] MEDS ORDERED: MORPHINE SULFATE INJECTION 2 MG/ML SYRG IV PRN (16:45)
[2021-10-26] MEDS ORDERED: IOHEXOL 350 MG/ML 100ML IJ ONE (17:28)
[2021-10-26] MEDS ORDERED: MORPHINE SULFATE INJECTION 2 MG/ML SYRG IV ONE (21:15)
[2021-10-26] MEDS ORDERED: ONDANSETRON HCL 4 MG/2 ML VIAL IV PRN (22:00)
[2021-10-26] MEDS ORDERED: MULTIPLE VITAMINS W/ MINERALS TAB PO ONE (22:00)
[2021-10-26] MEDS ORDERED: MONTELUKAST SODIUM 10 MG TAB PO ONE (22:00)
[2021-10-26] MEDS ORDERED: ACETYLCYSTEINE 10 %(100MG/ML) SOL 4ML NEB SCH (22:00)
[2021-10-26] MEDS ORDERED: IPRATROPIUM BROM 0.5 MG/2.5ML INH SOL NEB SCH (22:00)
[2021-10-26] MEDS ORDERED: BUDESONIDE (INHALATION) 0.5 MG/2 ML NEB NEB ONE (22:00)
[2021-10-26] MEDS ORDERED: AZITHROMYCIN 500MG/ 250ML 250 ML IV ONE (22:00)
[2021-10-26] MEDS ORDERED: PROMETHAZINE-DM 5 ML ORAL SYRUP PO PRN (22:00)
[2021-10-26] MEDS ORDERED: ALBUTEROL SULF 2.5 MG/0.5ML(0.5%) NEB SOLN NEB PRN ×2 (22:00→22:10)
[2021-10-26] MEDS ORDERED: FAMOTIDINE (10MG/ML) 2ML VL IV ONE (22:00)
[2021-10-26] MEDS ORDERED: LACTULOSE 20Gm/30ML SOLN PO PRN (22:00)
[2021-10-26] MEDS ORDERED: ATORVASTATIN 20 MG TAB PO SCH (22:00)
[2021-10-26] MEDS ORDERED: ALBUTEROL SULF 2.5 MG/0.5ML(0.5%) NEB SOLN NEB ONE (22:00)
[2021-10-26] MEDS ORDERED: hydrALAZINE HCL 20 MG/ML VL IV PRN (22:00)
[2021-10-26] MEDS ORDERED: DOCUSATE SOD 100 MG CAP PO PRN (22:00)
[2021-10-26] MEDS ORDERED: HYDROcodone-ACET 5/325MG TAB PO ONE (22:00)
[2021-10-26] MEDS ORDERED: IPRATROPIUM BROM 0.5 MG/2.5ML INH SOL NEB ONE (22:00)
[2021-10-26] MEDS ORDERED: cefTRIAXone 1GM/50ML D5W 50 ML IV ONE (22:00)
[2021-10-26] MEDS ORDERED: IPRATROPIUM BROM 0.5 MG/2.5ML INH SOL NEB PRN (22:15)
[2021-10-26] MEDS ORDERED: DEXTROSE (50%) 50ML SYRG IV PRN (22:15)
[2021-10-26] MEDS ORDERED: METOPROLOL SUCCINATE XL 50 MG TAB PO ONE (22:15)
[2021-10-26 22:45] LABS: Urine Bacteria NONE SEEN /hpf (None Seen); Urine Blood Negative /uL (Negative); Urine WBC <1 /hpf (0 - 3)
[2021-10-26 22:52] LABS: Urine Specific Gravity > 1.050 (1.001-1.035)
[2021-10-26 23:48] LABS: Magnesium 2.4 mg/dL (1.6-2.6)
[2021-10-26 23:50] LABS: INR 1.12 (0.9-1.15); Partial Thromboplastin Time 28.9 sec (23.6-33.0)
[2021-10-26 23:55] LABS: Phosphorus 2.2 mg/dL (2.5-4.90)
[2021-10-27 00:09] VITALS: BP 110/69
[2021-10-27] MEDS: methylPREDNISolone SOD SUCC 40 MG/ML VL IV SCH ×3 (00:27→21:13)
[2021-10-27] MEDS: MONTELUKAST SODIUM 10 MG TAB PO SCH ×2 (00:28→21:14)
[2021-10-27] MEDS: MORPHINE SULFATE INJECTION 2 MG/ML SYRG IV PRN ×2 (00:35→06:40)
[2021-10-27 05:00] VITALS: BP 98/63
[2021-10-27 05:41] LABS: Basophils # (auto) 0.1 10 ^3/uL (0-0.2); Basophils % (auto) 0.5 % (0.0-2.0); Eosinophils # (auto) 0 10 ^3/uL (0-0.8); Hematocrit 44.1 % (41.0-53.0); Hemoglobin 15.2 g/dL (13.5-17.5); Lymphocytes # (auto) 0.9 10 ^3/uL (0.4-5.4); Mean Corpuscular Hemoglobin 29.5 pg (28.0-32.0); Mean Corpuscular Hgb Conc. 34.4 g/dL (32.0-36.0); Mean Corpuscular Volume 85.8 fL (80.0-100.0); Monocytes # (auto) 0 10 ^3/uL (0-1.3); Monocytes % (auto) 0.4 % (0.0-12.0); Neutrophils # (auto) 11.7 10 ^3/uL (1.6-8.6); Neutrophils % (auto) 92.1 % (37.0-80.0); Red Blood Cells 5.14 10^6/uL (4.5-5.90); Red Cell Distribution Width 13.3 % (11.8-14.3); White Blood Cell 12.7 10^3/uL (4.4-10.8)
[2021-10-27 05:58] LABS: INR 1.16 (0.9-1.15); Partial Thromboplastin Time 28.2 sec (23.6-33.0)
[2021-10-27 05:59] LABS: Albumin 3.4 g/dL (3.4-5.0); Anion Gap 9 (5-15); Blood Urea Nitrogen 21 mg/dL (7-18); Calcium 8.2 mg/dL (8.5-10.1); Carbon Dioxide 22 mmol/L (21-32); Chloride 104 mmol/L (98-107); Glucose 206 mg/dL (74-106); Lipase 30 U/L (73-393); Magnesium 2.5 mg/dL (1.6-2.6); Potassium 4.1 mmol/L (3.5-5.1); Sodium 135 mmol/L (136-145)
[2021-10-27] MEDS ORDERED: FUROSEMIDE 20 MG/2 ML VIAL IV SCH (06:00)
[2021-10-27 06:02] LABS: Alanine Aminotransferase 44 U/L (16-61); Alkaline Phosphatase 87 U/L (45-117); Aspartate Aminotransferase 20 U/L (15-37); BUN/Creatinine Ratio 26.6; Bilirubin, Total 1.7 mg/dL (0.2-1.0); CRP High Sensitivity 0.18 mg/dL (< 0.3); Cholesterol 97 mg/dL (< 200); GFR African American 128 mL/min; GFR Non-African American 106 mL/min; HDL Cholesterol 40 mg/dL (40-59); Total Protein 7.3 g/dL (6.4-8.2); Triglycerides 56 mg/dL (< 150)
[2021-10-27] MEDS: BUDESONIDE (INHALATION) 0.5 MG/2 ML NEB NEB SCH ×2 (06:28→18:41)
[2021-10-27] MEDS: ACCU-CHEK COMFORT CURVE STRIP VI SCH ×4 (06:28→21:14)
[2021-10-27] MEDS: GABAPENTIN 300 MG CAP PO SCH ×3 (06:28→21:14)
[2021-10-27] MEDS: InsuLIN REG 1unit/0.01ml Soln (100units/ml) SC SCH ×3 (06:31→18:03)
[2021-10-27 09:00] VITALS: BP 91/65
[2021-10-27] MEDS: cefTRIAXone 1GM/50ML D5W 50 ML IV SCH ×2 (09:00→12:30)
[2021-10-27] MEDS: BENAZEPRIL HCL 10 MG TAB PO SCH (10:00)
[2021-10-27] MEDS: METOPROLOL SUCCINATE XL 50 MG TAB PO SCH ×2 (10:00→10:19)
[2021-10-27] MEDS ORDERED: AZITHROMYCIN 500MG/ 250ML 250 ML IV SCH (10:00)
[2021-10-27] MEDS: FAMOTIDINE (10MG/ML) 2ML VL IV SCH (10:41)
[2021-10-27] MEDS: MULTIPLE VITAMINS W/ MINERALS TAB PO SCH (10:42)
[2021-10-27] MEDS: ASPirin 81 mg TAB PO SCH (10:42)
[2021-10-27 13:00] VITALS: BP 106/70
[2021-10-27 13:25] LABS: Alcohol, Urine < 3.0 mg/dL (0-10); Amphetamine Screen, Urine NEGATIVE (NEGATIVE); Barbiturate Scree,Urine NEGATIVE (NEGATIVE); Benzodiazephine Screen, Urine NEGATIVE (NEGATIVE); Cannabinoid Screen, Urine NEGATIVE (NEGATIVE); Cocaine Screen, Urine NEGATIVE (NEGATIVE); Opiate Scree,Urine NEGATIVE (NEGATIVE); Phencyclidine Screen, Urine NEGATIVE (NEGATIVE)
[2021-10-27] MEDS ORDERED: THIAMINE HCL 100 MG TAB PO ONE (13:30)
[2021-10-27] MEDS: HYDROcodone-ACET 5/325MG TAB PO PRN ×3 (15:13→21:15)
[2021-10-27 17:00] VITALS: BP 105/65
[2021-10-27 22:00] VITALS: BP 100/70
[2021-10-27] MEDS ORDERED: InsuLIN REG 1unit/0.01ml Soln (100units/ml) SC SCH (22:00)
[2021-10-27] MEDS ORDERED: ATORVASTATIN 20 MG TAB PO SCH (22:00)
[2021-10-28 05:00] VITALS: BP 96/63
[2021-10-28] MEDS: GABAPENTIN 300 MG CAP PO SCH ×2 (06:00→14:50)
[2021-10-28] MEDS: BUDESONIDE (INHALATION) 0.5 MG/2 ML NEB NEB SCH (06:22)
[2021-10-28 06:45] LABS: Basophils # (auto) 0.1 10 ^3/uL (0-0.2); Basophils % (auto) 0.4 % (0.0-2.0); Eosinophils # (auto) 0 10 ^3/uL (0-0.8); Hematocrit 44.3 % (41.0-53.0); Hemoglobin 15.1 g/dL (13.5-17.5); Lymphocytes # (auto) 0.9 10 ^3/uL (0.4-5.4); Lymphocytes % (auto) 6.5 % (10.0-50.0); Mean Corpuscular Hemoglobin 29.6 pg (28.0-32.0); Monocytes # (auto) 0.3 10 ^3/uL (0-1.3); Monocytes % (auto) 2.2 % (0.0-12.0); Neutrophils # (auto) 12.1 10 ^3/uL (1.6-8.6); Neutrophils % (auto) 90.9 % (37.0-80.0); Red Blood Cells 5.09 10^6/uL (4.5-5.90); Red Cell Distribution Width 13.3 % (11.8-14.3); White Blood Cell 13.3 10^3/uL (4.4-10.8)
[2021-10-28] MEDS: ACCU-CHEK COMFORT CURVE STRIP VI SCH ×2 (06:58→11:35)
[2021-10-28] MEDS: InsuLIN REG 1unit/0.01ml Soln (100units/ml) SC SCH ×2 (06:58→11:38)
[2021-10-28 07:00] LABS: Calcium 8.8 mg/dL (8.5-10.1); Potassium 5.2 mmol/L (3.5-5.1)
[2021-10-28 07:02] LABS: BUN/Creatinine Ratio 30.1
[2021-10-28 07:04] LABS: Bilirubin, Total 1.3 mg/dL (0.2-1.0)
[2021-10-28 09:00] VITALS: BP 106/59
[2021-10-28] MEDS ORDERED: CHOL20007 PO (09:28)
[2021-10-28] MEDS ORDERED: ERGOCALCIFEROL 50,000 UNIT(1.25MG) CAP PO ONE (09:30)
[2021-10-28] MEDS ORDERED: SODIUM ZIRCONIUM CYCL 10 GM PAK PO ONE (09:30)
[2021-10-28] MEDS ORDERED: FOLIC ACID 1 MG TAB PO SCH (10:00)
[2021-10-28] MEDS ORDERED: THIAMINE HCL 100 MG TAB PO SCH (10:00)
[2021-10-28] MEDS: FAMOTIDINE (10MG/ML) 2ML VL IV SCH (10:44)
[2021-10-28] MEDS: methylPREDNISolone SOD SUCC 40 MG/ML VL IV SCH (10:44)
[2021-10-28] MEDS: BENAZEPRIL HCL 10 MG TAB PO SCH (10:45)
[2021-10-28] MEDS: ASPirin 81 mg TAB PO SCH (10:46)
[2021-10-28] MEDS: MULTIPLE VITAMINS W/ MINERALS TAB PO SCH (10:46)
[2021-10-28] MEDS: HYDROcodone-ACET 5/325MG TAB PO PRN (10:49)
[2021-10-28 12:46] VITALS: BP 110/72
[2021-10-28] MEDS ORDERED: ATOR10TA PO (12:54)
[2021-10-28] MEDS ORDERED: PRED20TA2 PO (12:54)
[2021-10-28 14:51] VITALS: BP 106/59
[2021-10-29 08:38] LABS: LDL Cholesterol 55 mg/dL (< 100)
[2021-10-29] MEDS ORDERED: predniSONE 20 MG TAB PO SCH (10:00)
== END 2021-10-28 15:12 | disposition home or self-care (01) | DRG 291 ==
LOC: ER 12:54 → OVERFLOW 16:37 → CENTRAL 21:48
PROVIDERS: ADMIT Hospitalist; ATTEND Internal Medicine
DX: I11.0 Hypertensive heart disease with heart failure (principal); I50.33 Acute on chronic diastolic (congestive) heart failure; J44.1 Chronic obstructive pulmonary disease with (acute) exacerbation; I24.9 Acute ischemic heart disease, unspecified; J44.0 Chronic obstructive pulmonary disease with (acute) lower respiratory infection; E66.9 Obesity, unspecified; J20.9 Acute bronchitis, unspecified; E55.9 Vitamin D deficiency, unspecified; T38.0X5A Adverse effect of glucocorticoids and synthetic analogues, initial encounter; F10.10 Alcohol abuse, uncomplicated; F17.200 Nicotine dependence, unspecified, uncomplicated; I25.10 Atherosclerotic heart disease of native coronary artery without angina pectoris; Z20.822 Contact with and (suspected) exposure to COVID-19; K76.0 Fatty (change of) liver, not elsewhere classified; M10.9 Gout, unspecified; E87.5 Hyperkalemia; M19.90 Unspecified osteoarthritis, unspecified site; E11.42 Type 2 diabetes mellitus with diabetic polyneuropathy; E78.5 Hyperlipidemia, unspecified; Z83.3 Family history of diabetes mellitus; Y92.89 Other specified places as the place of occurrence of the external cause
CPT/HCPCS: 36415; 71045; 71275; 72125; 73200; 76705; 80048; 80053; 80061; 80307; 81001; 82247; 82306; 82728; 82962; 83036; 83615; 83690; 83735; 83880; 84100; 84443; 84484; 85025; 85379; 85610; 85730; 86141; 87040; 87086; 87426; 93005; 93306; 94640; 96365; 96367; 96375; 99291; G0378; J0696; J1815; J3490

== ENCOUNTER 2023-07-11 08:58 | Emergency (ER) | payer MEDICARE, MEDICAID ==
[~2023-07-11] VITALS: Ht 170.2 cm; Wt 101.5 kg
[~2023-07-11 08:58] MED LIST changes: -ACET1CAP14 PO; -AMOX500T86 PO; -ATOR-47 PO; +ATOR10TA PO; -AZIT500T66 PO; -METH4PAK PO; +PRED20TA2 PO
[2023-07-11 09:53] LABS: Basophils # (auto) 0.1 10 ^3/uL (0-0.2); Basophils % (auto) 0.9 % (0.0-2.0); Eosinophils # (auto) 0.2 10 ^3/uL (0-0.8); Eosinophils % (auto) 3.1 % (0.0-7.0); Hematocrit 48.3 % (41.0-53.0); Hemoglobin 16.4 g/dL (13.5-17.5); Mean Corpuscular Hemoglobin 29.5 pg (28.0-32.0); Mean Corpuscular Hgb Conc. 33.8 g/dL (32.0-36.0); Mean Corpuscular Volume 87.2 fL (80.0-100.0); Monocytes # (auto) 0.5 10 ^3/uL (0-1.3); Monocytes % (auto) 9.2 % (0.0-12.0); Neutrophils # (auto) 3.1 10 ^3/uL (1.6-8.6); Neutrophils % (auto) 52.8 % (37.0-80.0); Nucleated Red Blood Cells % 0.1 %; Red Blood Cells 5.54 10^6/uL (4.5-5.90); Red Cell Distribution Width 13.2 % (11.8-14.3); White Blood Cell 5.9 10^3/uL (4.4-10.8)
[2023-07-11 10:05] LABS: Alanine Aminotransferase 35 U/L (7-40); Albumin 4.7 g/dL (3.2-4.8); Alkaline Phosphatase 79 U/L (46-116); Anion Gap 7 (5-15); Aspartate Aminotransferase 21 U/L (13-40); BUN/Creatinine Ratio 20.7 (10.0-20.0); Blood Urea Nitrogen 17 mg/dL (9-23); Calcium 9.5 mg/dL (8.5-10.1); Carbon Dioxide 26 mmol/L (20-30); Chloride 104 mmol/L (98-107); Glucose 122 mg/dL (74-106); Potassium 4.5 mmol/L (3.5-5.1); Sodium 137 mmol/L (136-145)
[2023-07-11 10:06] LABS: Bilirubin, Total 2.2 mg/dL (0.2-1.0); Total Protein 7.7 g/dL (5.7-8.2)
[2023-07-11 10:10] LABS: INR 1.07 (0.9-1.15); Partial Thromboplastin Time 30.8 SEC (24.5-34.5); Prothrombin Time 11.2 sec (9.3-11.8)
[2023-07-11 13:02] VITALS: BP 98/69; PULSE 84; RESP 18; TEMP 97.8; O2SAT 96
[2023-07-11] MEDS ORDERED: IBU600T PO (14:25)
== END 2023-07-11 14:31 | disposition home or self-care (01) ==
LOC: ER 08:58
DX: E11.51 Type 2 diabetes mellitus with diabetic peripheral angiopathy without gangrene (principal); J44.9 Chronic obstructive pulmonary disease, unspecified; M10.9 Gout, unspecified; I25.2 Old myocardial infarction; I25.10 Atherosclerotic heart disease of native coronary artery without angina pectoris; Z90.49 Acquired absence of other specified parts of digestive tract
CPT/HCPCS: 36415; 71045; 80053; 83880; 84484; 85025; 85610; 85730; 93970

== ENCOUNTER 2023-07-15 15:25 | Emergency (ER) | payer MEDICARE, MEDICAID ==
[~2023-07-15] VITALS: Ht 170.2 cm; Wt 100.2 kg
[~2023-07-15 15:25] MED LIST changes: +IBU600T PO
[2023-07-15 16:51] LABS: Basophils # (auto) 0 10 ^3/uL (0-0.2); Basophils % (auto) 0.4 % (0.0-2.0); Eosinophils # (auto) 0.1 10 ^3/uL (0-0.8); Eosinophils % (auto) 0.9 % (0.0-7.0); Hematocrit 54.1 % (41.0-53.0); Lymphocytes # (auto) 1.9 10 ^3/uL (0.4-5.4); Lymphocytes % (auto) 16.5 % (10.0-50.0); Mean Corpuscular Hgb Conc. 33.3 g/dL (32.0-36.0); Monocytes # (auto) 0.8 10 ^3/uL (0-1.3); Monocytes % (auto) 6.5 % (0.0-12.0); Neutrophils # (auto) 8.9 10 ^3/uL (1.6-8.6); Neutrophils % (auto) 75.7 % (37.0-80.0); Nucleated Red Blood Cells % 0.2 %; Red Blood Cells 6.22 10^6/uL (4.5-5.90); Red Cell Distribution Width 13.5 % (11.8-14.3); White Blood Cell 11.8 10^3/uL (4.4-10.8)
[2023-07-15 17:14] LABS: Alanine Aminotransferase 29 U/L (7-40); Albumin 4.7 g/dL (3.2-4.8); Alkaline Phosphatase 72 U/L (46-116); Anion Gap 11 (5-15); Aspartate Aminotransferase 21 U/L (13-40); BUN/Creatinine Ratio 14.5 (10.0-20.0); Bilirubin, Total 1.9 mg/dL (0.2-1.0); Blood Urea Nitrogen 12 mg/dL (9-23); Calcium 9.4 mg/dL (8.7-10.4); Carbon Dioxide 21 mmol/L (20-30); Chloride 105 mmol/L (98-107); Glucose 138 mg/dL (74-106); Potassium 4.4 mmol/L (3.5-5.1); Sodium 137 mmol/L (136-145); Total Protein 7.9 g/dL (5.7-8.2)
[2023-07-15] MEDS ORDERED: IPRATROPIUM BROM 0.5 MG/2.5ML INH SOL NEB ONE (19:45)
[2023-07-15] MEDS ORDERED: ALBUTEROL MEDNEB 2.5 mg/3ml NEB NEB ONE (19:45)
[2023-07-15] MEDS ORDERED: AZITHROMYCIN 500MG/ 250ML 250 ML IV ONE (19:45)
[2023-07-15] MEDS ORDERED: SODIUM CHLORIDE 0.9% 1,000 ML IV ONE (19:45)
[2023-07-15 20:23] VITALS: BP 97/63; PULSE 100; TEMP 97.5
[2023-07-15 21:13] VITALS: RESP 20; O2SAT 96
== END 2023-07-15 21:16 | disposition home or self-care (01) ==
LOC: ER 15:25
DX: J44.1 Chronic obstructive pulmonary disease with (acute) exacerbation (principal); E11.65 Type 2 diabetes mellitus with hyperglycemia; E78.5 Hyperlipidemia, unspecified; I10 Essential (primary) hypertension; Z90.49 Acquired absence of other specified parts of digestive tract; I25.2 Old myocardial infarction; Z87.891 Personal history of nicotine dependence
CPT/HCPCS: 36415; 71045; 80053; 83735; 84484; 85025; 85379; 93005; 94640; 99284; J7644

== ENCOUNTER 2024-06-22 14:09 | Inpatient (IN) | payer MEDICARE, MEDICAID ==
[~2024-06-22] VITALS: Ht 170.2 cm; Wt 100.9 kg
[2024-06-22] MEDS: FUROSEMIDE 40 MG/4 ML VIAL IV ONE (14:15)
--- NOTE | 2024-06-22 14:30 | ED.PDOC ---
HPI Comments 63 y.o male with PMH of angina, [place] x2, HTN, DM, COPD, CHF, and hyperlipidemia, presents to the ED via EMS for a chief complaint of chest pain associated with SOB and bilateral leg swelling that started this morning. Patient describes pain as sharp, constant, non radiating and has no alleviating factors. Patient states pain presented after taking his morning medications at rest. Upon ED arrival, patient presents with 2 liters of oxygen NC but is still SOB. EMS reports gurvinder olivo's blood pressure has been declining, on scene it read 105 systolic but upon ED arrival, it had dropped to 94/64. Patient denies any fever, chill, nausea, vomiting, diarrhea, abdominal pain, or urinary symptoms. Patient denies any substance, alcohol or tobacco use. History of prior heroin use, is sober now. No allergies reported from patient . Chief Complaint: Chest Pain Time Seen by MD: 14:09 Primary Care Provider: Arnaldo Wade Reviewed Notes: Nurses Notes, Claim Adjuster Notes, Medications, Allergies Allergies: Coded Allergies: NO KNOWN ALLERGIES (Unverified , 02/03/18) Home Meds Active Scripts Ibuprofen Micronized (MOTRIN TABLET) 600 Mg Tb, 600 MG PO TID PRN for 5 Days, #15 TAB *Black box warning-NSAIDS can increase risk of [place] & hypertension, GI irritation, ulceration, bleed, perferation. Do not use post cardiac surgery. Use short duration/lowest effective dose. Prov:TYRONE BOO MD 07/11/23 Atorvastatin Calcium (Lipitor) 10 Mg Tab, 1 TAB PO DAILY, #30 TAB Prov:JUDY ADLER MD 10/28/21 Prednisone (Prednisone) 20 Mg Tab, 2 TAB PO DAILY for 5 Days, #10 TAB Prov:JUDY ADLER MD 10/28/21 Acetaminophen (Tylenol 8 Hour Arthritis) 650 Mg Tab, 650 MG PO TID for 10 Days, #30 TAB Prov:BRENDON RODRIGUEZ 09/03/21 Reported Medications Dulaglutide (Trulicity) 1.5 Mg/0.5 Ml Inj, 0.5 ML SC QWE INJECT 0.5 ML (1 AND 1/2 MILLIGRAMS) SC Q Monday01/06/21 Alogliptin Benzoate (Alogliptin) 25 Mg Tab, 25 MG PO DAILY, TAB 12/25/20 Pioglitazone Hydrochloride (Actos) 15 Mg Tab, 15 MG PO DAILY, TAB 12/25/20 Aspirin (Aspir-Low) 81 Mg Tab, 81 MG PO DAILY for 30 Days, MG 12/25/20 Gabapentin (Gabapentin) 600 Mg Tab, 600 MG PO BID for 30 Days, MG 12/25/20 Empagliflozin (Jardiance) 25 Mg Tab, 25 MG PO DAILY, TAB 12/25/20 Metoprolol Tartrate (Metoprolol Tartrate) 25 Mg Tab, 25 MG PO BID for 30 Days, MG 12/25/20 Lisinopril (Lisinopril) 5 Mg Tab, 5 MG PO DAILY for 30 Days, MG 12/25/20 Albuterol Sulfate (VENTOLIN MDI) 90 Mcg Ih, 1-2 PUFF IN PRN 07/04/18 Metformin Hydrochloride (Metformin Hcl) 1,000 Mg Tab, 1 TAB PO BID, #60 TAB 5 Refills 02/03/18 Information Source: Patient, Emergency Med Personnel Mode of Arrival: EMS Severity: Moderate Timing: Hours Duration: Since onset Prehospital treatment: 12 Lead EKG, Valver Location: Substernal Radiation: No Radiation Quality: Sharp Onset: At Rest Cardiac Risk Factors: Hyperlipidemia, HTN, Diabetes PE Risk Factors: None History of: [place] Modifying Factors: Nothing Associated Signs and Symptoms: SOB Past Medical History PAST MEDICAL HISTORY: Angina, CAD, COPD, DM, Gout, High Lipids, HTN, [place] Surgical History: Cholecystectomy Surgical History (Other): bladder Family History Family History: Family hx of DM Social History Smoker: Non-Smoker, Quit Greater Than 1 Year Alcohol: Denies ETOH Use Drugs: Denies Drug Use Lives In: Home Constitutional: denies: chills, diaphoresis, fatigue, fever, malaise, sweats, weakness, others EENTM: denies: blurred vision, double vision, ear bleeding, ear discharge, ear drainage, ear pain, ear ringing, eye pain, eye redness, hearing loss, mouth pain, mouth swelling, nasal discharge, nose bleeding, nose congestion, nose pain, photophobia, tearing, throat pain, throat swelling, voice changes, others Respiratory: reports: SOB at rest, shortness of breath; denies: cough, hemoptysis, orthopnea, SOB with excertion, stridor, wheezing, others Cardiovascular: reports: chest pain; denies: dizzy spells, diaphoresis, Dyspnea on exertion, edema, irregular heart beat, left arm pain, lightheadedness, palpi tations, PND, syncope, others Gastrointestinal: denies: abdomen distended, abdominal pain, blood streaked bowels, constipated, diarrhea, dysphagia, difficulty swallowing, hematemesis, melena, nausea, poor appetite, poor fluid intake, rectal bleeding, rectal pain, vomiting, others Genitourinary: denies: burning, dysuria, flank pain, frequency, hematuria, incontinence, penile discharge, penile sore, pain, testicle pain, testicle swelling, urgency, others Neurological: denies: dizziness, fainting, headache, left sided numbness, left sided weakness, numbness, paresthesia, pre-existing deficit, right sided numbness, right sided weakness, seizure, speech problems, tingling, tremors, weakness, others Musculoskeletal: reports: others (leg swelling ); denies: back pain, gout, joint pain, joint swelling, muscle pain, muscle stiffness, neck pain Integumetry: denies: bruises, change in color, change in hair/nails, dryness, laceration, lesions, lumps, rash, wounds, others Allergic/Immunocompromised: denies: Difficulty Healing, Frequent Infections, Hives, Itching, others Hematologic/Lymphatic: denies: anemia, blood clots, easy bleeding, easy bruising, swollen glands, others Endocrine: denies: excessive hunger, excessive sweating, excessive thirst, excessive urination, flushing, intolerance to cold, intolerance to heat, unexplained weight gain, unexplained weight loss, others Psychiatric: denies: anxiety, bipolar disorder, depression, hopeless, panic disorder, schizophrenia, sleepless, suicidal, others All Other Systems: Reviewed and Negative Physical Exam General Appearance: Moderate Distress HEENT: Normal ENT Inspection, Pharynx Normal, TMs Normal Neck: Full Range of Motion, Non-Tender, Normal, Normal Inspection Respiratory: Chest Non-Tender, Lungs Clear, No Accessory Muscle Use, No Respiratory Distress, Normal Breath Sounds Cardiovascular: No Edema, No JVD, No Murmur, No Gallop, Normal Peripheral Pulses, Regular Rate/Rhythm Breast Exam: Deferred Gastrointestinal: No Organomegaly, Non Tender, No Pulsatile Mass, Normal Bowel Sounds, Soft Genitalia: Deferred Pelvic: Deferred Rectal: Deferred Extremities: No calf tenderness, Normal capillary refill, Normal inspection, No rmal range of motion, Non-tender, Pedal edema, Swelling (Left lower extremity bilateral hand) Musculoskeletal : Apperance: Normal Neurologic: Alert, merchandise displayer II-XII nml as Tested, No Motor Deficits, Normal Affect, Normal Mood, No Sensory Deficits Cerebellar Function: NOT DONE Reflexes: NOT DONE Skin: Dry, Normal Color, Warm Peripheral Pulses: 3+ Radial (R), 3+ Radial (L) Lymphatic: No Adenopathy Was a procedure done? Was a procedure done?: Yes Sedation Sedation?: No Central Line Recorder of insertion practice: Commercial Reporter Occupation of regulator pin inserter: Attending Physician Indication: Hypotension, Inability to obtain IV Room prepared for procedure: Yes Commercial Reporter performed hand hygien: Yes Maximal sterile barrier precau: Mask/Eye shield, Sterile gown, Cap, Sterlie gloves, Large sterlie drape Skin Preparation: Providine iodine Insertion site: Left, Internal jugular Central line catheter type: Dialysis non-tunneled Number of lumens: 3 Central line exchanged over a: Yes Antiseptic ointment applied to: Yes Post Assessment: Chest X-Ray, Proper placement Informed consent obtained: Yes Risks/benefits/alt described: Yes CP Differential Dx Differential Diagnosis: A-fib, A-Flutter, Angina, Anxiety / Panic Attack, Atrial Dysrhythmia, Electrolyte Disorder Differential Diagnosis: Angina, Chest Wall Pain, Cholelithiasis, Costochondritis, Pericarditis X-Ray, Labs, Meds, VS Vital Signs Date Time Temp Pulse Resp B/P (MAP) Pulse Ox O2 Delivery O2 Flow Rate FiO2 06/22/24 17:13 100 18 89/53 (65) 95 06/22/24 17:00 89/53 06/22/24 15:22 105 22 89/57 (68) 95 06/22/24 15:12 106 20 96 Nasal Cannula* 4 36 06/22/24 14:34 117 14 78/58 (65) 93 06/22/24 14:17 98.5 112 18 94/64 (74) 95 06/22/24 14:15 89/53 06/22/24 14:09 111 Lab Test 06/22/24 17:10 06/22/24 15:20 06/22/24 14:27 Range/Units Urine Color Pending Urine Clarity Pending Urine pH Pending Urine Specific [place] Pending Urine Protein Pending Urine Ketones Pending Urine Blood Pending Urine Nitrite Pending Urine Bilirubin Pending Urine Urobilinogen Pending Urine Leukocyte Esterase Pending Urine RBC Pending Urine WBC Pending Urine Squamous Epithelial Cells Pending Urine Bacteria Pending Urine Glucose Pending Troponin I High Sensitivity < 3 L < 3 L </=54 ng/L White Blood Count 8.3 4.4-10.8 10^3/uL Red Blood Count 5.64 4.5-5.90 10^6/uL Hemoglobin 16.5 13.5-17.5 g/dL Hematocrit 50.3 41.0-53.0 % Mean Corpuscular Volume 89.2 80.0-100.0 fL Mean Corpuscular Hemoglobin 29.3 28.0-32.0 pg Mean Corpuscular Hemoglobin Concent 32.9 32.0-36.0 g/dL Red Cell Distribution Width 13.6 11.8-14.3 % Platelet Count 172 140-450 10^3/uL Mean Platelet Volume 8.7 6.9-10.8 fL Neutrophils (%) (Auto) 61.4 37.0-80.0 % Lymphocytes (%) (Auto) 28.7 10.0-50.0 % Monocytes (%) (Auto) 6.9 0.0-12.0 % Eosinophils (%) (Auto) 2.2 0.0-7.0 % Basophils (%) (Auto) 0.8 0.0-2.0 % Neutrophils # (Auto) 5.1 1.6-8.6 10 ^3/uL Lymphocytes # (Auto) 2.4 0.4-5.4 10 ^3/uL Monocytes # (Auto) 0.6 0-1.3 10 ^3/uL Eosinophils # (Auto) 0.2 0-0.8 10 ^3/uL Basophils # (Auto) 0.1 0-0.2 10 ^3/uL Nucleated Red Blood Cells 0.1 % Prothrombin Time 12.2 H 9.3-11.8 sec Prothrombin Time INR 1.16 H 0.9-1.15 Activated Partial Thromboplast Time 22.7 L 24.5-34.5 SEC Sodium Level 139 136-145 mmol/L Potassium Level 4.5 3.5-5.1 mmol/L Chloride Level 109 H 98-107 mmol/L Carbon Dioxide Level 18 L 20-31 mmol/L Anion Gap 12 5-15 Blood Urea Nitrogen 15 9-23 mg/dL Creatinine 0.90 0.700-1.30 mg/dL Glomerular Filtration Rate Calc 95 >90 mL/min BUN/Creatinine Ratio 16.7 10.0-20.0 Serum Glucose 190 H 74-106 mg/dL Calcium Level 9.6 8.7-10.4 mg/dL Magnesium Level 1.5 L 1.6-2.6 mg/dL B-Type Natriuretic Peptide 32.73 0-100 pg/mL Current Medications Medications (Trade) Dose Ordered Sig/Ciarra Route Start Time Stop Time Status Last Admin Furosemide (Lasix Injection) 40 mg ONCE ONCE IV 06/22/24 14:15 06/22/24 14:16 DC 06/22/24 14:15 Norepinephrine Bitartrate 250 ml @ 3.75 mls/hr Q24H IV 06/22/24 17:00 06/22/24 17:00 Patient alert. Complaining of shortness a breath. Chest pain. Tachycardia. Blood pressure on the low side. Was given Lasix. Was given Levophed. History of drug use. Has swelling of lower extremity left being greater than the right. Hands are swollen. Reviewed his history. Explained to the patient. Continue to monitor. EKG reviewed does not show any acute process. Chest x-ray reviewed does not show any acute process. X-Ray, Labs, Meds, VS Comment CLINICAL INFORMATION: 63 years old, Male; CHEST PAIN. TECHNIQUE: Single AP portable chest radiograph was obtained. COMPARISON: XY CHEST PORTABLE on DOS: 07/15/23, XY CHEST PORTABLE on DOS: 07/11/23, CHEST PORTABLE on DOS: 10/26/21 FINDINGS: Lungs: Mild atelectasis in the lung bases. No focal consolidation. Cardiac: Heart size is within normal limits. Pulmonary vasculature: Unremarkable. Mediastinum/ebenezer: Unremarkable. Bones: No acute osseous abnormality identified. Other: No other significant findings. IMPRESSION: No evidence of acute disease in the chest. Time of 1ST Reevaluation: 14:24 Reevaluation 1ST: Unchanged Patient Education/Counseling: Diagnosis, Treatment, Prognosis Family Education/Counseling: No Family Present Departure 1 Departure Time of Disposition: 14:39 Impression: Primary Impression: Acute respiratory failure Qualified Codes: J96.01 - Acute respiratory failure with hypoxia Additional Impressions: Chest pain of unknown etiology Uncontrolled diabetes mellitus Qualified Codes: E13.65 - Other specified diabetes mellitus with hyperglycemia Disposition: ADMITTED INPATIENT Admit to: Med Surg Condition: Guarded Critical Care Note Critical Care Time?: Yes (45 min-critical care time only) Stability Stability form required: No Heart Score Heart Score: Heart Score Response (Comments) Value History Moderate Suspicious 1 EKG Normal 0 Age 45-64 1 Risk Factors >3 or Hx ASHD 2 Troponin Normal limit 0 Total 4 I personally scribed for TYRONE BOO MD ([email or web address]) on 06/22/24 at 14:30. Electronically submitted by Kelsie Espinosa ([facility]). I personally scribed for TYRONE BOO MD ([email or web address]) on 06/22/24 at 15:16. Electronically submitted by Kelsie Espinosa ([facility]). I personally scribed for TYRONE BOO MD ([email or web address]) on 06/22/24 at 17:44. Electronically submitted by Kelsie Espinosa ([facility]). TYRONE BOO MD Jun 22, 2024 14:30
[2024-06-22 14:48] LABS: Basophils # (auto) 0.1 10 ^3/uL (0-0.2); Basophils % (auto) 0.8 % (0.0-2.0); Eosinophils # (auto) 0.2 10 ^3/uL (0-0.8); Eosinophils % (auto) 2.2 % (0.0-7.0); Hematocrit 50.3 % (41.0-53.0); Hemoglobin 16.5 g/dL (13.5-17.5); Lymphocytes # (auto) 2.4 10 ^3/uL (0.4-5.4); Lymphocytes % (auto) 28.7 % (10.0-50.0); Mean Corpuscular Hemoglobin 29.3 pg (28.0-32.0); Mean Corpuscular Hgb Conc. 32.9 g/dL (32.0-36.0); Mean Corpuscular Volume 89.2 fL (80.0-100.0); Monocytes # (auto) 0.6 10 ^3/uL (0-1.3); Monocytes % (auto) 6.9 % (0.0-12.0); Neutrophils # (auto) 5.1 10 ^3/uL (1.6-8.6); Neutrophils % (auto) 61.4 % (37.0-80.0); Nucleated Red Blood Cells % 0.1 %; Platelet Count (auto) 172 10^3/uL (140-450); Red Blood Cells 5.64 10^6/uL (4.5-5.90); Red Cell Distribution Width 13.6 % (11.8-14.3); White Blood Cell 8.3 10^3/uL (4.4-10.8)
--- NOTE | 2024-06-22 14:48 | DVH ---
CLINICAL INFORMATION: 63 years old, Male; CHEST PAIN. TECHNIQUE: Single AP portable chest radiograph was obtained. COMPARISON: XY CHEST PORTABLE on DOS: 07/15/23, XY CHEST PORTABLE on DOS: 07/11/23, CHEST PORTABLE on DOS: 10/26/21 FINDINGS: Lungs: Mild atelectasis in the lung bases. No focal consolidation. Cardiac: Heart size is within normal limits. Pulmonary vasculature: Unremarkable. Mediastinum/ebenezer: Unremarkable. Bones: No acute osseous abnormality identified. Other: No other significant findings. IMPRESSION: No evidence of acute disease in the chest.
[2024-06-22 14:56] LABS: Chloride 109 mmol/L (98-107); Potassium 4.5 mmol/L (3.5-5.1); Sodium 139 mmol/L (136-145)
[2024-06-22 14:57] LABS: Anion Gap 12 (5-15); Calcium 9.6 mg/dL (8.7-10.4); Carbon Dioxide 18 mmol/L (20-31)
[2024-06-22 15:02] LABS: BUN/Creatinine Ratio 16.7 (10.0-20.0); Blood Urea Nitrogen 15 mg/dL (9-23); Glucose 190 mg/dL (74-106)
[2024-06-22 15:08] LABS: INR 1.16 (0.9-1.15); Partial Thromboplastin Time 22.7 SEC (24.5-34.5); Prothrombin Time 12.2 sec (9.3-11.8)
[2024-06-22 15:12] VITALS: PULSE 106; RESP 20; O2SAT 96
[2024-06-22] MEDS: NOREPINEPHRINE 8 MG/250ML KIT 250 ML IV SCH (17:00)
[2024-06-22 17:50] LABS: Urine Bacteria MOD /hpf (None Seen); Urine Blood 3+ /uL (Negative); Urine Clarity Ex.Turbid (Clear); Urine Color Dark-Brown (Yellow); Urine Mucus FEW (None Seen); Urine Protein, UAD 2+ (Negative); Urine Specific Gravity 1.015 (1.001-1.035); Urine Urobilinogen Normal (Negative); Urine WBC 1887 /hpf (0 - 3); Urine WBC Clumps PRESENT /hpf (None Seen)
[2024-06-22 19:32] VITALS: PULSE 83; RESP 17; O2SAT 95
[2024-06-22] MEDS ORDERED: MORPHINE SULFATE INJ 2 MG/ml SYRG IV PRN ×2 (21:45)
[2024-06-22] MEDS ORDERED: DEXTROSE (50%) 50ML SYRG IV PRN (21:45)
[2024-06-22] MEDS: SODIUM CHLORIDE 0.9% 1,000 ML IV SCH (21:45)
[2024-06-22] MEDS ORDERED: HYDROcodone-ACET 5/325MG TAB PO PRN (21:45)
[2024-06-22] MEDS ORDERED: NITROGLYCERIN 0.4 MG SL TAB SL PRN (21:45)
[2024-06-22] MEDS ORDERED: ACETAMINOPHEN 325 MG TAB PO PRN (21:45)
[2024-06-22] MEDS ORDERED: ONDANSETRON HCL 4 MG/2 ML VIAL IV PRN (21:45)
--- NOTE | 2024-06-22 21:46 | DVHHP2 ---
History of Present Illness Reason for Visit: Acute chest pain History of Present Illness Patient is a 63-year-old male with multiple past history including COPD, DM, [place], and hypertension who presented to [facility] ED with complaint of chest pain. Patient reports symptoms progressively get worse with shortness a breath, bilateral lower extremity swelling, described pain as sharp, constant, radiating, rating pain 7/10 numeric scale, getting worse that prompted this visit. Patient was seen and evaluated in the ED, laboratory data shows WBC 8.3, platelets 172, sodium 139, potassium 4.5, BUN 15, creatinine 0.90, glucose 190, BNP 32.73, troponin 3, PT 12.2, INR 1.16, PTT 22.7, blood pressure 86/51, heart rate 88, temperature 97.7 F, O2 saturation 96% on oxygen. Urinalysis positive for urinary tract infection, chest x-ray show no evidence of acute disease. Patient was started on IV antibiotic regimen Rocephin, please see medication orders section in the computer. On my assessment, patient denied chest pain at this moment, no headache, no dizziness, no diaphoresis, no palpitation, no shortness of breath, no nausea, no vomiting, no fever, no chills. Patient was admitted for further evaluation medical management. Past Medical History Angina, CAD, COPD, DM, Gout, High Lip[place], HTN, [place] Past Surgical History Cholecystectomy Family History Reviewed, noncontributory to the management of this case. Past Social History The patient lives at home, denies smoking, alcohol or illicit drugs abuse. Review of Systems Constitutional: No: Fever, Chills, Sweats, Weakness, Malaise, Other Eyes: No: Pain, Vision change, Conjunctivae inflammation, Eyelid inflammation, Other, Redness ENT: No: Ear pain, Ear discharge, Nose pain, Nose discharge, Nose congestion, Mouth pain, Mouth swelling, Throat pain, Throat swelling, Other Respiratory: Shortness of breath, Other (SOB at rest); No: Cough, Dry, SOB with excertion, Wheezing, Hemoptysis, Pleuritic Pain, Sputum, Wheezing Cardiovascular: Chest Pain; No: Palpitations, Orthopnea, Paroxysmal Noc. Dyspnea, Edema, Lt Headedness, Other Gastrointestinal: No: Nausea, Vomiting, Abdominal Pain, Diarrhea, Constipation, Melena, Hematochezia, Other Genitourinary: No Dysuria, No Frequency, No Incontinence, No Hematuria, No Retention, No Other Musculoskeletal: other (Lower extremity swelling); No: neck pain, shoulder pain, arm pain, back pain, hand pain, leg pain, foot pain Skin: No: Rash, Lesions, Jaundice, Bruising, Other Neurological: No: Weakness, Numbness, Incoordination, Change in speech, Confusion, Seizures, Other Allergies: Coded Allergies: NO KNOWN ALLERGIES (Unverified , 02/03/18) Medications Current Medications Medications Dose Ordered Sig/Ciarra Route Start Time Stop Time Status Last Admin Dose Admin Norepinephrine Bitartrate 250 ml @ 3.75 mls/hr Q24H IV 06/22/24 17:00 06/22/24 17:00 3.75 MLS/HR Exam Vital Signs Vital Signs Date Time Temp Pulse Resp B/P (MAP) Pulse Ox O2 Delivery O2 Flow Rate FiO2 06/22/24 21:00 79 14 87/59 (68) 96 06/22/24 19:32 Room Air* 0 21 06/22/24 19:32 97.7 97.7 General Appearance: Alert, Oriented X3, Cooperative, No acute distress HEENT: Atraumatic, PERRLA, EOMI, Mucous membr. moist/pink Respiratory: Clear to auscultation, Normal air movement Cardiovascular: Regular rate, Normal S1, Normal S2, No murmurs Abdominal: Normal bowel sounds, Soft, No tenderness, No hepatospenomegaly, No masses Extremities: No clubbing, No cyanosis, No edema, Normal pulses, No tenderness/swelling Skin: No rashes, No breakdown, No significant lesion Neuro: Normal gait, Normal speech, Strength at 5/5 X4 ext, Normal tone, Sensation intact, Cranial nerves 3-12 NL, Reflexes 2+ Psych/Mental Status: Mental status NL, Mood NL Labs/Xrays Labs Test 06/22/24 17:10 06/22/24 15:20 06/22/24 14:27 Range/Units Urine Color Dark-brown Yellow Urine Clarity Ex.turbid Clear Urine pH 6.0 5.0-9.0 Urine Specific [place] 1.015 1.001-1.035 Urine Protein 2+ H Negative Urine Ketones Negative Negative Urine Blood 3+ H Negative /uL Urine Nitrite Negative Negative Urine Bilirubin Negative Negative Urine Urobilinogen Normal Negative mg/dL Urine Leukocyte Esterase 3+ Negative /uL Urine RBC 197 0 - 3 /hpf Urine WBC 1887 0 - 3 /hpf Urine WBC Clumps Present None Seen /hpf Urine Squamous Epithelial Cells Few <5 /hpf Urine Bacteria Mod H None Seen /hpf Urine Mucus Few None Seen Urine Glucose Normal Normal mg/dL Troponin I High Sensitivity < 3 L </=54 ng/L White Blood Count 8.3 4.4-10.8 10^3/uL Red Blood Count 5.64 4.5-5.90 10^6/uL Hemoglobin 16.5 13.5-17.5 g/dL Hematocrit 50.3 41.0-53.0 % Mean Corpuscular Volume 89.2 80.0-100.0 fL Mean Corpuscular Hemoglobin 29.3 28.0-32.0 pg Mean Corpuscular Hemoglobin Concent 32.9 32.0-36.0 g/dL Red Cell Distribution Width 13.6 11.8-14.3 % Platelet Count 172 140-450 10^3/uL Mean Platelet Volume 8.7 6.9-10.8 fL Neutrophils (%) (Auto) 61.4 37.0-80.0 % Lymphocytes (%) (Auto) 28.7 10.0-50.0 % Monocytes (%) (Auto) 6.9 0.0-12.0 % Eosinophils (%) (Auto) 2.2 0.0-7.0 % Basophils (%) (Auto) 0.8 0.0-2.0 % Neutrophils # (Auto) 5.1 1.6-8.6 10 ^3/uL Lymphocytes # (Auto) 2.4 0.4-5.4 10 ^3/uL Monocytes # (Auto) 0.6 0-1.3 10 ^3/uL Eosinophils # (Auto) 0.2 0-0.8 10 ^3/uL Basophils # (Auto) 0.1 0-0.2 10 ^3/uL Nucleated Red Blood Cells 0.1 % Prothrombin Time 12.2 H 9.3-11.8 sec Prothrombin Time INR 1.16 H 0.9-1.15 Activated Partial Thromboplast Time 22.7 L 24.5-34.5 SEC Sodium Level 139 136-145 mmol/L Potassium Level 4.5 3.5-5.1 mmol/L Chloride Level 109 H 98-107 mmol/L Carbon Dioxide Level 18 L 20-31 mmol/L Anion Gap 12 5-15 Blood Urea Nitrogen 15 9-23 mg/dL Creatinine 0.90 0.700-1.30 mg/dL Glomerular Filtration Rate Calc 95 >90 mL/min BUN/Creatinine Ratio 16.7 10.0-20.0 Serum Glucose 190 H 74-106 mg/dL Calcium Level 9.6 8.7-10.4 mg/dL Magnesium Level 1.5 L 1.6-2.6 mg/dL B-Type Natriuretic Peptide 32.73 0-100 pg/mL PATIENT: MARY PAYNE ACCT: [id number] UNIT: [id number] : 1960 LOC: ER ROOM / BED: / AGE / SEX: 63 / M ADM STATUS: REG ER SERVICE 1412 ORDERING PHYSICIAN: TYRONE BOO MD PROCEDURE(s): CXRP - CHEST PORTABLE REASON: CHEST PAIN ORDER NUMBER(s): [id number], ACCESSION NUMBER(s): [id number] CLINICAL INFORMATION: 63 years old, Male; CHEST PAIN. TECHNIQUE: Single AP portable chest radiograph was obtained. COMPARISON: XY CHEST PORTABLE on DOS: 07/15/23, XY CHEST PORTABLE on DOS: 07/11/23, CHEST PORTABLE on DOS: 10/26/21 FINDINGS: Lungs: Mild atelectasis in the lung bases. No focal consolidation. Cardiac: Heart size is within normal limits. Pulmonary vasculature: Unremarkable. Mediastinum/ebenezer: Unremarkable. Bones: No acute osseous abnormality identified. Other: No other significant findings. IMPRESSION: No evidence of acute disease in the chest. Assessment/Plan Assessment/Plan Acute respiratory failure Urinary tract infection Acute respiratory failure with hypoxia Chest pain of unknown etiology Uncontrolled diabetes mellitus Other specified diabetes mellitus with hyperglycemia Plan 1. Admit to telemetry unit 2. Breathing treatment 3. Pain control management 4. IV antibiotic management 5. Management of fluids and electrolytes 6. Consultation for Cardiology 7. Diagnostic test chest x-ray 8. DVT prophylaxis-on aspirin 9. Repeat labs CBC, CMP in a.m. 10. Home medication reviewed and reconciled 11. Continue with current medical management 12. Treatment plan discussed with patient and RN. Patient verbalized understanding. Plan discussed with: Patient, Other (RN) My Orders Orders - MARLON HILTON DNP Procedure Category Date Status Time Aspirin Tablet PHA 06/23/24 Verified 10:00 Atorvastatin (Lipitor) PHA 06/22/24 Verified 22:00 Pantoprazole PHA 06/23/24 Verified (Protonix) 10:00 Gabapentin Capsule PHA 06/22/24 Verified (Neurontin Capsule) 22:00 Albuterol Medneb PHA 06/22/24 Verified (Ventolin Medneb) 21:45 Ipratropium Medneb PHA 06/22/24 Verified (Atrovent Medneb) 21:45 Consistent DIET 06/23/24 Verified Carb(Ccho)Diabetes Breakfast Admit ADMIT 06/22/24 Verified 21:35 Allergies ANA 06/22/24 Verified 21:35 Code Status CODE 06/22/24 Verified 21:35 0.9% Ns 1000 Ml PHA 06/22/24 Verified 21:45 Oxygen Per Hour RT 06/22/24 Verified 21:35 Hydrocodone-Acet PHA 06/22/24 Verified 5/325mg Tab (Hugo 21:45 Ondansetron Hcl PHA 06/22/24 Verified (Zofran) 21:45 Docusate Sodium PHA 06/22/24 Verified Capsule (Colace 21:45 Complete Blood Count LAB 06/23/24 Verified 04:00 Comprehensive LAB 06/23/24 Verified Metabolic Panel 04:00 Condition: Serious ANA 06/22/24 Verified 21:35 Acetaminophen Tablet PHA 06/22/24 Verified (Tylenol Tablet) 21:45 Bedrest With Bathroom ANA 06/22/24 Verified Privileg 21:35 Morphine Sulfate PHA 06/22/24 Verified Injection 21:45 Sequential ANA 06/22/24 Verified Compression Device Nitroglycerin PHA 06/22/24 Verified Sublingual (Ntrostat 21:45 Morphine Sulfate PHA 06/22/24 Verified Injection 21:45 Notify Of Changes [facility] 06/22/24 Verified From Base 21:35 Hot Box Checker For [facility] 06/22/24 Verified 24 Hours 21:35 Emergency Dysrhythmia [facility] 06/22/24 Verified Protocol 21:35 Rhythm Strips Once [facility] 06/22/24 Verified Every Shift 21:35 Oxygen By Nasal RT 06/22/24 Verified Cannula 21:35 Glucose Blood PHA 06/22/24 Verified (Accu-Chek Comfort 22:00 Bedtime Insulin Scale PHA 10/26/24 Verified 22:00 Moderate Insulin Ss PHA 06/23/24 Verified 07:00 Dextrose 50% Syringe PHA 06/22/24 Verified 21:45 Problem List: (1) Chest pain of unknown etiology (2) Acute respiratory failure (3) Urinary tract infection (4) Uncontrolled diabetes mellitus (5) Acute respiratory failure with hypoxia (6) Other specified diabetes mellitus with hyperglycemia Date of Service: Jun 22, 2024 Billing Provider: MARLON HILTON DNP Common Visit Codes: [id number] INP/OBS CARE (HIGH) MARLON HILTON DNP Jun 22, 2024 21:45
[2024-06-22 21:53] VITALS: BP 100/67; PULSE 75; RESP 18; TEMP 97.7; O2SAT 97
[2024-06-22] MEDS: InsuLIN REG 1unit/0.01ml Soln (100units/ml) SC SCH (22:00)
[2024-06-22] MEDS: ACCU-CHEK COMFORT CURVE STRIP VI SCH (22:14)
[2024-06-22] MEDS: cefTRIAXone 1GM/50ML D5W 50 ML IV ONE (22:21)
[2024-06-22] MEDS: GABAPENTIN 300 MG CAP PO SCH (22:21)
[2024-06-22] MEDS: ATORVASTATIN 20 MG TAB PO SCH (22:22)
[2024-06-23] VITALS (30 sets, daily range): BP systolic 84–126; BP diastolic 50–76; PULSE 65–88; RESP 12–28; TEMP 98–98.5; O2SAT 92–97
[2024-06-23 05:18] LABS: Basophils # (auto) 0.1 10 ^3/uL (0-0.2); Basophils % (auto) 0.8 % (0.0-2.0); Eosinophils # (auto) 0.2 10 ^3/uL (0-0.8); Eosinophils % (auto) 2.1 % (0.0-7.0); Hematocrit 42.2 % (41.0-53.0); Hemoglobin 14.4 g/dL (13.5-17.5); Lymphocytes # (auto) 2.4 10 ^3/uL (0.4-5.4); Lymphocytes % (auto) 26.4 % (10.0-50.0); Mean Corpuscular Hemoglobin 29.6 pg (28.0-32.0); Mean Corpuscular Hgb Conc. 34.1 g/dL (32.0-36.0); Mean Corpuscular Volume 86.9 fL (80.0-100.0); Monocytes # (auto) 0.7 10 ^3/uL (0-1.3); Neutrophils # (auto) 5.7 10 ^3/uL (1.6-8.6); Neutrophils % (auto) 62.7 % (37.0-80.0); Platelet Count (auto) 233 10^3/uL (140-450); Red Blood Cells 4.86 10^6/uL (4.5-5.90); Red Cell Distribution Width 13.5 % (11.8-14.3)
[2024-06-23 05:30] LABS: Alanine Aminotransferase 33 U/L (7-40); Albumin 3.9 g/dL (3.2-4.8); Alkaline Phosphatase 74 U/L (46-116); Anion Gap 7 (5-15); Aspartate Aminotransferase 19 U/L (13-40); BUN/Creatinine Ratio 16.9 (10.0-20.0); Blood Urea Nitrogen 14 mg/dL (9-23); Calcium 8.8 mg/dL (8.7-10.4); Carbon Dioxide 26 mmol/L (20-31); Chloride 108 mmol/L (98-107); Glucose 113 mg/dL (74-106); Potassium 3.5 mmol/L (3.5-5.1); Sodium 141 mmol/L (136-145)
[2024-06-23 05:31] LABS: Bilirubin, Total 2.2 mg/dL (0.2-1.0); Total Protein 6.4 g/dL (5.7-8.2)
[2024-06-23] MEDS: InsuLIN REG 1unit/0.01ml Soln (100units/ml) SC SCH (06:39)
[2024-06-23] MEDS: cefTRIAXone 1GM/50ML D5W 50 ML IV SCH (09:05)
[2024-06-23] MEDS: PANTOPRAZOLE 40 MG/10 ML VIAL INJ IV SCH (10:08)
[2024-06-23] MEDS: IPRATROPIUM BROM 0.5 MG/2.5ML INH SOL NEB PRN (10:08)
[2024-06-23] MEDS: ALBUTEROL SULF 2.5 MG/0.5ML(0.5%) NEB SOLN NEB PRN (10:08)
[2024-06-23] MEDS: ASPirin 81 mg TAB PO SCH (10:09)
--- NOTE | 2024-06-23 10:33 | ECG ---
[facility] Test Date: 2024-06-22 Test Time: 14:08:41 Pat Name: MARY PAYNE Department: ED Room: 0236T Gender: M Training Program Developer: MAKAYLA : 1960 Requested By: TYRONE BOO Order Number: [id number] Reading MD: Brody Green Measurements Intervals [place] Rate: 111 P: 19 ME: 156 QRS: 52 QRSD: 75 T: 11 QT: 310 QTc: 421 Interpretive Statements Sinus tachycardia ST elevation suggests acute pericarditis Electronically Signed On 06-27-2024 14:24:10 PDT by Brody Green Please click the below link to view image of tracing.
[2024-06-23] MEDS ORDERED: TAMSULOSIN HYDROCHLORIDE 0.4 MG CAP PO ONE (16:15)
--- NOTE | 2024-06-23 16:24 | DVHPN2 ---
Subjective 63-year-old male with COPD, diabetes, history of [place], hypertension, hyperlipidemia admitted for acute chest pain, complicated by hypotension. In the ED patient was started on low-dose Levo, place on central line. Seen patient today during rounds Off Levophed since 9:00 a.m., upon chart review no further hypotensive episode. Started on ceftriaxone. Stable to transfer out of ICU POCUS done today and interpreted by me Cardiac: Technically difficult study, grossly no pericardial effusion Lung: No B-lines Total critical care time spent on this patient more than 30 minutes including evaluation, chart review, formulating plan and communication with team, excluding any procedures Reviewed: Care Plan, H&P, Labs, Medications, Previous Orders, Radiology Changes from previous H/P or p: No Changes Eyes: No Pain, No Vision change, No Conjunctivae inflammation, No Eyelid inflammation, No Other, No Redness ENT: No Ear pain, No Ear discharge, No Nose pain, No Nose discharge, No Nose congestion, No Mouth pain, No Mouth swelling, No Throat pain, No Throat swelling, No Other Cardiovascular: Chest Pain; No Palpitations, No Orthopnea, No Paroxysmal Noc. Dyspnea, No Edema, No Lt Headedness, No Other Respiratory: No Cough, No Dry; Shortness of breath; No SOB with excertion, No Wheezing, No Hemoptysis, No Pleuritic Pain, No Sputum; Other (SOB at rest) Gastrointestinal: No Nausea, No Vomiting, No Abdominal Pain, No Diarrhea, No Constipation, No Melena, No Hematochezia, No Other Genitourinary: No Dysuria, No Frequency, No Incontinence, No Hematuria, No Retention, No Other Musculoskeletal: other (Lower extremity swelling); No neck pain, No shoulder pain, No arm pain, No back pain, No hand pain, No leg pain, No foot pain Skin: No Rash, No Lesions, No Jaundice, No Bruising, No Other Objective Vitals Vital Signs Date Time Temp Pulse Resp B/P (MAP) Pulse Ox O2 Delivery O2 Flow Rate FiO2 06/23/24 15:30 77 14 105/60 (75) 92 06/23/24 14:00 Room Air* 0 21 06/23/24 13:00 98.0 98.0 Intake/Output Intake and Output 06/23/24 07:00 Intake Total 602 ml Output Total 1400 ml Balance -798 ml IV Total 602 ml Output Urine Total 1400 ml Exam Alert, oriented x3 Obese Speaking in full sentences PERRLA Right IJ TLC Decreased breath sounds S1-S2 regular rate , distant heart sound Abdomen soft nontender, no hepatomegaly Equal strength bilaterally on upper and lower extremities No lower extremity edema Medications Current Medications Medications Dose Ordered Sig/Ciarra Route Start Time Stop Time Status Last Admin Dose Admin Norepinephrine Bitartrate 250 ml @ 3.75 mls/hr Q24H IV 06/22/24 17:00 06/23/24 00:15 3.75 MLS/HR Aspirin 81 mg DAILY PO 06/23/24 10:00 06/23/24 10:09 81 MG Atorvastatin Calcium 10 mg HS PO 06/22/24 22:00 06/22/24 22:22 10 MG Pantoprazole Sodium 40 mg DAILY IV 06/23/24 10:00 06/23/24 10:08 40 MG Gabapentin 600 mg BID PO 06/22/24 22:00 06/23/24 10:09 600 MG Albuterol 2.5 mg Q4HPRN PRN NEB 06/22/24 21:45 06/23/24 10:08 2.5 MG Ipratropium [place] 0.5 mg Q4HPRN PRN NEB 06/22/24 21:45 06/23/24 10:08 0.5 MG Sodium Chloride 1,000 ml @ 60 mls/hr [id number] IV 06/22/24 21:45 06/22/24 21:45 60 MLS/HR Acetaminophen/ Hydrocodone Bitart 1 tab Q4HP PRN PO 06/22/24 21:45 Ondansetron HCl 4 mg Q4HP PRN IV 06/22/24 21:45 Docusate Sodium 100 mg BIDPRN PRN PO 06/22/24 21:45 Acetaminophen 650 mg Q6HP PRN PO 06/22/24 21:45 Morphine Sulfate 2 mg Q4HPRN PRN IV 06/22/24 21:45 Nitroglycerin 0.4 mg Q5MINP PRN SL 06/22/24 21:45 Morphine Sulfate 2 mg Q30M PRN IV 06/22/24 21:45 Diagnostic Test (Pha) 1 strip ACHS 06/22/24 22:00 06/23/24 11:41 1 STRIP Insulin Human Regular HS SC 06/22/24 22:00 Insulin Human Regular AC SC 06/23/24 07:00 06/23/24 11:56 2 UNITS Dextrose 50 ml UD PRN IV 06/22/24 21:45 Ceftriaxone Sodium 50 ml @ 100 mls/hr DAILY@09 IV 06/23/24 09:00 06/23/24 09:05 100 MLS/HR Laboratory Results Laboratory Tests 06/23/24 04:55 Chemistry Test 06/23/24 04:55 Albumin 3.9 g/dL (3.2-4.8) Calcium Level 8.8 mg/dL (8.7-10.4) Total Protein 6.4 g/dL (5.7-8.2) LFT Test 06/23/24 04:55 Alanine Aminotransferase (ALT) 33 U/L (7-40) Alkaline Phosphatase 74 U/L (46-116) Aspartate Amino Transferase (AST) 19 U/L (13-40) Total Bilirubin 2.2 mg/dL (0.2-1.0) H Urinalysis Test 06/22/24 17:10 Urine Color Dark-brown (Yellow) Urine Clarity Ex.turbid (Clear) Urine pH 6.0 (5.0-9.0) Urine Specific [place] 1.015 (1.001-1.035) Urine Protein 2+ (Negative) H Urine Ketones Negative (Negative) Urine Blood 3+ /uL (Negative) H Urine Nitrite Negative (Negative) Urine Bilirubin Negative (Negative) Urine Urobilinogen Normal mg/dL (Negative) Urine Leukocyte Esterase 3+ /uL (Negative) Urine RBC 197 /hpf (0 - 3) Urine WBC 1887 /hpf (0 - 3) Urine WBC Clumps Present /hpf (None Seen) Urine Squamous Epithelial Cells Few /hpf (<5) Urine Bacteria Mod /hpf (None Seen) H Urine Mucus Few (None Seen) Urine Glucose Normal mg/dL (Normal) Labs and/or images reviewed: Labs reviewed by me, Image(s) reviewed by me Assessment/Plan Assessment/Plan Neuro Intact Cardiac Septic shock likely urosepsis Acute chest pain possibly demand ischemia Nonspecific, troponin negative, BNP negative POCUS TDS, no pericardial effusion, EKG not revealing Obtain echo Pulmonary COPD not in exacerbation Maintain saturation above 94 Likely OHS/GEOVANY BiPAP at night Nebulizers p.r.n. GI Diet No need for f prophylaxis UTI likely cause of urosepsis Continue with ceftriaxone Follow urine culture Slight difficulty in passing urine Start Flomax Bladder scan Renal No signs of obstructive uropathy Continue to turn and creatinine Endo Insulin-dependent diabetes Continue with insulin sliding scale Fingerstick a.c. HS Maintain maintain blood sugar between 150-200 Diabetic diet Diet Diabetic diet Lines Right IJ TLC, can be removed tomorrow Keep K 4, Po 3, Mg 2 Prognosis fair Patient can be transferred out of ICU DVT prophylaxis Lovenox Plan discussed with: Patient My Orders Orders - FRANCIS COULTER MD Procedure Category Date Status Time Magnesium Sulfate PHA 06/23/24 Logged 1gm/100ml 17:00 Complete Blood Count LAB 06/24/24 Verified 04:00 Comprehensive LAB 06/24/24 Verified Metabolic Panel 04:00 Lactic Acid W/ Reflex LAB 06/24/24 Verified Order 04:00 Magnesium LAB 06/24/24 Verified 04:00 Phosphorus LAB 06/24/24 Verified 04:00 Transfer Orders XFER 06/23/24 Transmitted 16:13 Transfer Orders XFER 06/23/24 Transmitted 16:11 Date of Service: Jun 23, 2024 Billing Provider: FRANCIS COULTER MD Common Visit Codes: [id number] INP/OBS CARE(HIGH), [id number] CARE 30-74 MIN, PROCEDURE ONLY (Cardiac point of care ultrasound 10311) RFANCIS COULTER MD Jun 23, 2024 16:24
[2024-06-23] MEDS: MAGNESIUM SULFATE 1GM/100ML 100 ML IV SCH (17:38)
[2024-06-23] MEDS: TAMSULOSIN HYDROCHLORIDE 0.4 MG CAP PO SCH (18:06)
[2024-06-24] VITALS (12 sets, daily range): BP systolic 96–138; BP diastolic 64–85; PULSE 65–92; RESP 14–19; TEMP 98–98.6; O2SAT 94–97
[2024-06-24 04:49] LABS: Basophils # (auto) 0 10 ^3/uL (0-0.2); Basophils % (auto) 0.6 % (0.0-2.0); Eosinophils # (auto) 0.3 10 ^3/uL (0-0.8); Eosinophils % (auto) 3.5 % (0.0-7.0); Hematocrit 41.7 % (41.0-53.0); Hemoglobin 14.3 g/dL (13.5-17.5); Lymphocytes # (auto) 2.3 10 ^3/uL (0.4-5.4); Lymphocytes % (auto) 28.2 % (10.0-50.0); Mean Corpuscular Hgb Conc. 34.3 g/dL (32.0-36.0); Mean Corpuscular Volume 87.4 fL (80.0-100.0); Monocytes # (auto) 0.6 10 ^3/uL (0-1.3); Monocytes % (auto) 8.1 % (0.0-12.0); Neutrophils # (auto) 4.8 10 ^3/uL (1.6-8.6); Neutrophils % (auto) 59.6 % (37.0-80.0); Nucleated Red Blood Cells % 0.1 %; Platelet Count (auto) 205 10^3/uL (140-450); Red Blood Cells 4.77 10^6/uL (4.5-5.90); Red Cell Distribution Width 13.3 % (11.8-14.3)
[2024-06-24 05:05] LABS: Alanine Aminotransferase 31 U/L (7-40); Albumin 3.9 g/dL (3.2-4.8); Alkaline Phosphatase 76 U/L (46-116); Anion Gap 8 (5-15); Aspartate Aminotransferase 17 U/L (13-40); BUN/Creatinine Ratio 14.6 (10.0-20.0); Bilirubin, Total 2.2 mg/dL (0.2-1.0); Blood Urea Nitrogen 12 mg/dL (9-23); Calcium 8.7 mg/dL (8.7-10.4); Carbon Dioxide 26 mmol/L (20-31); Chloride 105 mmol/L (98-107); Glucose 133 mg/dL (74-106); Magnesium 2.2 mg/dL (1.6-2.6); Phosphorus 4.1 mg/dL (2.4-5.1); Potassium 3.9 mmol/L (3.5-5.1); Sodium 139 mmol/L (136-145); Total Protein 6.5 g/dL (5.7-8.2)
[2024-06-24] MEDS: DOCUSATE SOD 100 MG CAP PO PRN (10:23)
--- NOTE | 2024-06-24 15:34 | DVHSR ---
APPROVED REPORT EXAM: Two-dimensional and M-mode echocardiogram with Doppler and color Doppler. Blood Pressure: 106/73 mmHg INDICATION Prior Shock RISK FACTORS Height: 67, Weight: 222 DIMENSIONS LVDd4.5 (3.8-5.7cm)LA (2D)3.7 (1.9-4.0cm)Aortic Root3.4 (2.0-3.7cm) LVDs3.1 (2.5-4.0cm)LA (MM) (1.9-4.0cm)Aortic Cusp Exc1.7 (1.5-2.0cm) EF (%) 58.0 (55-70%)Rt. Atrium4.2 (1.9-4.0cm)Asc. Aorta cm IVSd1.1 (0.7-1.1cm)RV (D) (1.8-2.4cm) PWd1.3 (0.7-1.1cm) Mitral Valve MitralMitral Stenosis E wave0.94m/sMV Mean GR.mmHg A wave0.89m/sMV Peak GR.97mmHg E/A ratio1.12D MVAcm2 DECEL [id number] 1/2 [id number] IVRTmsDop MVA3.42cm2 Aortic Valve Aortic ValveAortic Stenosis V11.00m/Sylvia Mean GR.3mmHg V21.13m/Sylvia Peak GR.5mmHg LVOT Diameter2.1 (1.8-2.4cm)Doppler AVA3.06cm2 Pulmonic Valve V20.82m/s Conclusion Normal left ventricular size and dimension. Normal left ventricular systolic function estimated ejec tion fraction 55%. There is a grade 1 diastolic dysfunction. Normal normal right ventricular size and dimension. Normal right ventricular systolic function. Normal biatrial size and dimension. Normal aortic valve structure and function. Normal mitral valve structure and function. Normal tricuspid valve structure and function. The pulmonary valve is grossly normal. No pericardial effusion.
--- NOTE | 2024-06-24 19:49 | DVHPN2 ---
Subjective 63-year-old male with COPD, diabetes, history of [place], hypertension, hyperlipidemia admitted for acute chest pain, complicated by hypotension. In the ED patient was started on low-dose Levo, place on central line. Seen patient today during rounds [place] echo, off Levophed, monitor telemetry and blood pressure. Patient can be discharged tomorrow Reviewed: Care Plan, H&P, Labs, Medications, Previous Orders, Radiology Changes from previous H/P or p: No Changes Eyes: No Pain, No Vision change, No Conjunctivae inflammation, No Eyelid inflammation, No Other, No Redness ENT: No Ear pain, No Ear discharge, No Nose pain, No Nose discharge, No Nose congestion, No Mouth pain, No Mouth swelling, No Throat pain, No Throat swelling, No Other Cardiovascular: Chest Pain; No Palpitations, No Orthopnea, No Paroxysmal Noc. Dyspnea, No Edema, No Lt Headedness, No Other Respiratory: No Cough, No Dry; Shortness of breath; No SOB with excertion, No Wheezing, No Hemoptysis, No Pleuritic Pain, No Sputum; Other (SOB at rest) Gastrointestinal: No Nausea, No Vomiting, No Abdominal Pain, No Diarrhea, No Constipation, No Melena, No Hematochezia, No Other Genitourinary: No Dysuria, No Frequency, No Incontinence, No Hematuria, No Retention, No Other Musculoskeletal: other (Lower extremity swelling); No neck pain, No shoulder pain, No arm pain, No back pain, No hand pain, No leg pain, No foot pain Skin: No Rash, No Lesions, No Jaundice, No Bruising, No Other Objective Vitals Vital Signs Date Time Temp Pulse Resp B/P (MAP) Pulse Ox O2 Delivery O2 Flow Rate FiO2 06/24/24 17:02 81 06/24/24 16:49 98.6 17 96/64 (75) 95 98.6 06/24/24 10:00 Room Air 0.0 06/24/24 10:00 21 Intake/Output Intake and Output 06/24/24 04:00 Intake Total 2121.50 ml Output Total 2130 ml Balance -8.50 ml Intake Oral 1200 ml IV Total 921.50 ml Output Urine Total 2130 ml Exam Alert, oriented x3 Obese Speaking in full sentences PERRLA Right IJ TLC Decreased breath sounds S1-S2 regular rate , distant heart sound Abdomen soft nontender, no hepatomegaly Equal strength bilaterally on upper and lower extremities No lower extremity edema Medications Current Medications Medications Dose Ordered Sig/Ciarra Route Start Time Stop Time Status Last Admin Dose Admin Aspirin 81 mg DAILY PO 06/23/24 10:00 06/24/24 10:23 81 MG Atorvastatin Calcium 10 mg HS PO 06/22/24 22:00 06/23/24 22:16 10 MG Pantoprazole Sodium 40 mg DAILY IV 06/23/24 10:00 06/24/24 10:24 40 MG Gabapentin 600 mg BID PO 06/22/24 22:00 06/24/24 10:23 600 MG Albuterol 2.5 mg Q4HPRN PRN NEB 06/22/24 21:45 06/23/24 10:08 2.5 MG Ipratropium [place] 0.5 mg Q4HPRN PRN NEB 06/22/24 21:45 06/23/24 10:08 0.5 MG Acetaminophen/ Hydrocodone Bitart 1 tab Q4HP PRN PO 06/22/24 21:45 Ondansetron HCl 4 mg Q4HP PRN IV 06/22/24 21:45 Docusate Sodium 100 mg BIDPRN PRN PO 06/22/24 21:45 06/24/24 10:23 100 MG Acetaminophen 650 mg Q6HP PRN PO 06/22/24 21:45 Morphine Sulfate 2 mg Q4HPRN PRN IV 06/22/24 21:45 Nitroglycerin 0.4 mg Q5MINP PRN SL 06/22/24 21:45 Morphine Sulfate 2 mg Q30M PRN IV 06/22/24 21:45 Diagnostic Test (Pha) 1 strip ACHS 06/22/24 22:00 06/24/24 17:00 1 STRIP Insulin Human Regular HS SC 06/22/24 22:00 06/23/24 22:30 3 UNITS Insulin Human Regular AC SC 06/23/24 07:00 06/24/24 18:17 2 UNITS Dextrose 50 ml UD PRN IV 06/22/24 21:45 Ceftriaxone Sodium 50 ml @ 100 mls/hr DAILY@09 IV 06/23/24 09:00 06/24/24 10:23 100 MLS/HR Tamsulosin HCl 0.4 mg QPM PO 06/23/24 18:00 06/24/24 18:46 0.4 MG Laboratory Results Laboratory Tests 06/24/24 04:32 Chemistry Test 06/24/24 04:32 Albumin 3.9 g/dL (3.2-4.8) Calcium Level 8.7 mg/dL (8.7-10.4) Magnesium Level 2.2 mg/dL (1.6-2.6) Phosphorus Level 4.1 mg/dL (2.4-5.1) Total Protein 6.5 g/dL (5.7-8.2) LFT Test 06/24/24 04:32 Alanine Aminotransferase (ALT) 31 U/L (7-40) Alkaline Phosphatase 76 U/L (46-116) Aspartate Amino Transferase (AST) 17 U/L (13-40) Total Bilirubin 2.2 mg/dL (0.2-1.0) H Urinalysis Test 06/22/24 17:10 Urine Color Dark-brown (Yellow) Urine Clarity Ex.turbid (Clear) Urine pH 6.0 (5.0-9.0) Urine Specific [place] 1.015 (1.001-1.035) Urine Protein 2+ (Negative) H Urine Ketones Negative (Negative) Urine Blood 3+ /uL (Negative) H Urine Nitrite Negative (Negative) Urine Bilirubin Negative (Negative) Urine Urobilinogen Normal mg/dL (Negative) Urine Leukocyte Esterase 3+ /uL (Negative) Urine RBC 197 /hpf (0 - 3) Urine WBC 1887 /hpf (0 - 3) Urine WBC Clumps Present /hpf (None Seen) Urine Squamous Epithelial Cells Few /hpf (<5) Urine Bacteria Mod /hpf (None Seen) H Urine Mucus Few (None Seen) Urine Glucose Normal mg/dL (Normal) Microbiology Microbiology Date/Time Source Procedure Growth Status 06/22/24 17:10 Voided Urine Urine Culture - Preliminary Resulted Labs and/or images reviewed: Labs reviewed by me, Image(s) reviewed by me Assessment/Plan Assessment/Plan Septic shock likely urosepsis Acute chest pain possibly demand ischemia Nonspecific, troponin negative, BNP negative POCUS TDS, no pericardial effusion, EKG not revealing Obtain echo COPD not in exacerbation Maintain saturation above 94 Likely OHS/GEOVANY BiPAP at night Nebulizers p.r.n. UTI likely cause of urosepsis Continue with ceftriaxone Follow urine culture Slight difficulty in passing urine Start Flomax Bladder scan No signs of obstructive uropathy Continue to turn and creatinine Insulin-dependent diabetes Continue with insulin sliding scale Fingerstick a.c. HS Maintain maintain blood sugar between 150-200 Diabetic diet Removed the LC today DVT prophylaxis Lovenox Plan discussed with: Patient Date of Service: Jun 24, 2024 Billing Provider: FRANCIS COULTER MD Common Visit Codes: [id number] INP/OBS CARE(HIGH) FRANCIS COULTER MD Jun 24, 2024 19:49
[2024-06-25] VITALS (11 sets, daily range): BP systolic 102–123; BP diastolic 62–81; PULSE 61–80; RESP 16–20; TEMP 97.6–98.6; O2SAT 95–98
[2024-06-25] MEDS ORDERED: CEPH250C PO (09:59)
--- NOTE | 2024-06-25 11:38 | DVHDS2 ---
Discharge Summary Date of Admission Jun 22, 2024 at 21:35 Date of Discharge: Jun 25, 2024 Labs/Diagnostic Data: Laboratory Results Test 06/25/24 06:01 06/24/24 04:32 06/22/24 17:10 06/22/24 15:20 POC Glucose 175 mg/dl (70-106) White Blood Count 8.0 10^3/uL (4.4-10.8) Red Blood Count 4.77 10^6/uL (4.5-5.90) Hemoglobin 14.3 g/dL (13.5-17.5) Hematocrit 41.7 % (41.0-53.0) Mean Corpuscular Volume 87.4 fL (80.0-100.0) Mean Corpuscular Hemoglobin 30.0 pg (28.0-32.0) Mean Corpuscular Hemoglobin Concent 34.3 g/dL (32.0-36.0) Red Cell Distribution Width 13.3 % (11.8-14.3) Platelet Count 205 10^3/uL (140-450) Mean Platelet Volume 7.5 fL (6.9-10.8) Neutrophils (%) (Auto) 59.6 % (37.0-80.0) Lymphocytes (%) (Auto) 28.2 % (10.0-50.0) Monocytes (%) (Auto) 8.1 % (0.0-12.0) Eosinophils (%) (Auto) 3.5 % (0.0-7.0) Basophils (%) (Auto) 0.6 % (0.0-2.0) Neutrophils # (Auto) 4.8 10 ^3/uL (1.6-8.6) Lymphocytes # (Auto) 2.3 10 ^3/uL (0.4-5.4) Monocytes # (Auto) 0.6 10 ^3/uL (0-1.3) Eosinophils # (Auto) 0.3 10 ^3/uL (0-0.8) Basophils # (Auto) 0 10 ^3/uL (0-0.2) Nucleated Red Blood Cells 0.1 % Sodium Level 139 mmol/L (136-145) Potassium Level 3.9 mmol/L (3.5-5.1) Chloride Level 105 mmol/L (98-107) Carbon Dioxide Level 26 mmol/L (20-31) Anion Gap 8 (5-15) Blood Urea Nitrogen 12 mg/dL (9-23) Creatinine 0.82 mg/dL (0.700-1.30) Glomerular Filtration Rate Calc 98 mL/min (>90) BUN/Creatinine Ratio 14.6 (10.0-20.0) Serum Glucose 133 mg/dL (74-106) Lactic Acid Level 1.0 mmol/L (0.4-2.0) Calcium Level 8.7 mg/dL (8.7-10.4) Phosphorus Level 4.1 mg/dL (2.4-5.1) Magnesium Level 2.2 mg/dL (1.6-2.6) Total Bilirubin 2.2 mg/dL (0.2-1.0) Aspartate Amino Transferase (AST) 17 U/L (13-40) Alanine Aminotransferase (ALT) 31 U/L (7-40) Alkaline Phosphatase 76 U/L (46-116) Total Protein 6.5 g/dL (5.7-8.2) Albumin 3.9 g/dL (3.2-4.8) Urine Color Dark-brown (Yellow) Urine Clarity Ex.turbid (Clear) Urine pH 6.0 (5.0-9.0) Urine Specific [place] 1.015 (1.001-1.035) Urine Protein 2+ (Negative) Urine Ketones Negative (Negative) Urine Blood 3+ /uL (Negative) Urine Nitrite Negative (Negative) Urine Bilirubin Negative (Negative) Urine Urobilinogen Normal mg/dL (Negative) Urine Leukocyte Esterase 3+ /uL (Negative) Urine RBC 197 /hpf (0 - 3) Urine WBC 1887 /hpf (0 - 3) Urine WBC Clumps Present /hpf (None Seen) Urine Squamous Epithelial Cells Few /hpf (<5) Urine Bacteria Mod /hpf (None Seen) Urine Mucus Few (None Seen) Urine Glucose Normal mg/dL (Normal) Troponin I High Sensitivity < 3 ng/L (</=54) Test 06/22/24 14:27 Prothrombin Time 12.2 sec (9.3-11.8) Prothrombin Time INR 1.16 (0.9-1.15) Activated Partial Thromboplast Time 22.7 SEC (24.5-34.5) B-Type Natriuretic Peptide 32.73 pg/mL (0-100) Other Laboratory Tests 06/24/24 04:32 Brief Hx & Hospital Course: 63-year-old male with COPD, diabetes, history of [place], hypertension, hyperlipidemia admitted for acute chest pain complicated by hypotension. Chest pain resolved, patient was on Levophed for 3 hours, maintaining good map, Levophed tapered off, TLC removed. UA with leukocyte esterase and moderate bacteria. No troponin elevation. Chest pain resolved. Discussed with patient to obtain sleep study. Patient also reported that he often feels similar symptoms with feeling of ceilings closing on him. Possible that he also might have panic disorders. Discussed with patient to follow up with primary care for referrals for home study and psychiatric evaluation. And for him to continue antibiotic at home to complete the course for his UTI. Condition at Discharge: Good Final Diagnosis/Problems List Septic shock, resolved Urosepsis, resolved UTI Discharge Disposition: Home Discharge Instruct/Medications Diet: Consistent carbohydrate Activity: No Restrictions, As Tolerated Follow Up/Referral: Follow up with your primary care recommend sleep study and psychiatry referral Medications: complete keflex for 4 more days Discharge Statement: "Patient was advised to return to the ER or call 911 if any headaches, dizziness, shortness of breath, chest pain, abdominal pain, bleeding, fevers, or worsening of medical condition. Patient was counseled about treatment plan, medications, possible side effects, patientverbalized understanding. All questions were answered to the best of my ability. This discharge took greater then 30 minutes in planning, reviewing documentation, counseling the patient, and discussing with other team members." ASSESSMENT ASSESSMENT Assessment Septic shock likely urosepsis, resolved Acute chest pain possibly demand ischemia, resolved Nonspecific, troponin negative, BNP negative POCUS TDS, no pericardial effusion, EKG not revealing Echo with no significant abnormalities COPD not in exacerbation Using oxygen to sleep only Have all equipments at home Maintain saturation above 94 Likely OHS/GEOVANY BiPAP at night Nebulizers p.r.n. Recommend primary care sent for sleep study UTI likely cause of urosepsis Continue with ceftriaxone, dysarthria Keflex Follow urine culture Might have LUTS, discharged with Flomax, follow up with primary care No signs of obstructive uropathy Continue to turn and creatinine Insulin-dependent diabetes Continue with insulin sliding scale Fingerstick a.c. HS Maintain maintain blood sugar between 150-200 Diabetic diet Date of Service: Jun 25, 2024 Billing Provider: FRANCIS COULTER MD Common Visit Codes: [id number] DISCH DAY >30min FRANCIS COULTER MD Jun 25, 2024 11:38
== END 2024-06-25 14:00 | disposition home or self-care (01) | DRG 871 ==
LOC: ER 14:09 → EDBD 14:09 → TELE 21:35 → TELE-EAST 06-24 09:02
PROVIDERS: ADMIT Nurse Practitioner Family; ATTEND Student in an Organized Health Care Education/Training Program
DX: A41.9 Sepsis, unspecified organism (principal); R65.21 Severe sepsis with septic shock; E66.2 Morbid (severe) obesity with alveolar hypoventilation; N39.0 Urinary tract infection, site not specified; I10 Essential (primary) hypertension; M10.9 Gout, unspecified; J44.9 Chronic obstructive pulmonary disease, unspecified; E78.5 Hyperlipidemia, unspecified; I25.10 Atherosclerotic heart disease of native coronary artery without angina pectoris; E11.65 Type 2 diabetes mellitus with hyperglycemia; Z83.3 Family history of diabetes mellitus; Z79.4 Long term (current) use of insulin; Z90.49 Acquired absence of other specified parts of digestive tract; Z68.34 Body mass index [BMI] 34.0-34.9, adult; I25.2 Old myocardial infarction; Z79.899 Other long term (current) drug therapy
CPT/HCPCS: 36415; 71045; 80048; 80053; 81001; 82962; 83605; 83735; 83880; 84100; 84484; 85025; 85610; 85730; 87086; 93005; 93306; 94640; 99291; G0378; J1815; J2470

== ENCOUNTER 2025-01-31 11:27 | Inpatient (IN) | payer OTHER, MEDICAID ==
[~2025-01-31] VITALS: Ht 170.2 cm; Wt 101.8 kg
[2025-01-31] VITALS (24 sets, daily range): BP systolic 93–114; BP diastolic 59–79; PULSE 114–149; RESP 10–26; TEMP 98.4–98.5; O2SAT 85–98
[~2025-01-31 11:27] MED LIST changes: +CEPH250C PO
--- NOTE | 2025-01-31 11:57 | ED.PDOC ---
HPI Comments This is a 64 year old male presenting to the ED with chief complaint of chest pain. Patient reports that he was woken up this morning with left sided chest pain with associated SOB and soon started to experience dizzy spells and fatigue. Patient relays that he had an over the phone consultation with his PCP today and was advised to come to the ED due to an elevated blood pressure and his symptoms. Patient notes he took his morning medication today. Patient denies any headache, nausea, vomiting, cough, fever, chills, or abdominal pain. Chief Complaint: Dizziness Time Seen by MD: 11:53 Primary Care Provider: TENISHA Reviewed Notes: Nurses Notes, Medications, Allergies Allergies: Coded Allergies: NO KNOWN ALLERGIES (Unverified , 02/03/18) Home Meds Active Scripts Cephalexin (KEFLEX CAPSULE) 250 Mg Cp, 1 CAP PO QID for 4 Days, #28 CAP Prov:FRANCIS COULTER MD 06/25/24 Ibuprofen Micronized (MOTRIN TABLET) 600 Mg Tb, 600 MG PO TID PRN for 5 Days, #15 TAB *Black box warning-NSAIDS can increase risk of VA & hypertension, GI irritation, ulceration, bleed, perferation. Do not use post cardiac surgery. Use short duration/lowest effective dose. Prov:TYRONE BOO MD 07/11/23 Atorvastatin Calcium (Lipitor) 10 Mg Tab, 1 TAB PO DAILY, #30 TAB Prov:JUDY ADLER MD 10/28/21 Prednisone (Prednisone) 20 Mg Tab, 2 TAB PO DAILY for 5 Days, #10 TAB Prov:JUDY ADLER MD 10/28/21 Acetaminophen (Tylenol 8 Hour Arthritis) 650 Mg Tab, 650 MG PO TID for 10 Days, #30 TAB Prov:BRENDON RODRIGUEZ 09/03/21 Reported Medications Tamsulosin Hcl (Tamsulosin Hcl) 0.4 Mg Cap, CAP PO 01/31/25 Dulaglutide (Trulicity) 1.5 Mg/0.5 Ml Inj, 0.5 ML SC QWE INJECT 0.5 ML (1 AND 1/2 MILLIGRAMS) SC Q Monday01/06/21 Alogliptin Benzoate (Alogliptin) 25 Mg Tab, 25 MG PO DAILY, TAB 12/25/20 Pioglitazone Hydrochloride (Actos) 15 Mg Tab, 15 MG PO DAILY, TAB 12/25/20 Aspirin (Aspir-Low) 81 Mg Tab, 81 MG PO DAILY for 30 Days, MG 12/25/20 Gabapentin (Gabapentin) 600 Mg Tab, 600 MG PO BID for 30 Days, MG 12/25/20 Empagliflozin (Jardiance) 25 Mg Tab, 25 MG PO DAILY, TAB 12/25/20 Metoprolol Tartrate (Metoprolol Tartrate) 25 Mg Tab, 25 MG PO BID for 30 Days, MG 12/25/20 Lisinopril (Lisinopril) 5 Mg Tab, 5 MG PO DAILY for 30 Days, MG 12/25/20 Albuterol Sulfate (VENTOLIN MDI) 90 Mcg Ih, 1-2 PUFF IN PRN 07/04/18 Metformin Hydrochloride (Metformin Hcl) 1,000 Mg Tab, 1 TAB PO BID, #60 TAB 5 Refills 02/03/18 Information Source: Patient Mode of Arrival: Ambulatory Severity: Moderate Timing: Hours Duration: Since onset Prehospital treatment: None Location: Chest (L) Radiation: No Radiation Quality: Sharp Onset: At Rest, While Asleep Cardiac Risk Factors: Family History, Hyperlipidemia, HTN, Diabetes PE Risk Factors: None History of: Similar pain in past, VA, Angina Associated Signs and Symptoms: SOB Past Medical History PAST MEDICAL HISTORY: Angina, CAD, COPD, DM, Gout, High Lipids, HTN, VA Past Medical History (Other): Neuropathy Surgical History: Cholecystectomy Surgical History (Other): Bilateral knee surgery, Right ankle surgery Family History Family History: Reviewed,noncontributory to illness, Family hx of DM, Family hx of heart jessica Social History Smoker: Non-Smoker, Quit Greater Than 1 Year Alcohol: Denies ETOH Use Drugs: Denies Drug Use Lives In: Home Constitutional: reports: fatigue; denies: chills, diaphoresis, fever, malaise, sweats, weakness, others EENTM: denies: blurred vision, double vision, ear bleeding, ear discharge, ear drainage, ear pain, ear ringing, eye pain, eye redness, hearing loss, mouth pain, mouth swelling, nasal discharge, nose bleeding, nose congestion, nose pain, photophobia, tearing, throat pain, throat swelling, voice changes, others Respiratory: reports: shortness of breath; denies: cough, hemoptysis, orthopnea, SOB at rest, SOB with excertion, stridor, wheezing, others Cardiovascular: reports: chest pain, dizzy spells; denies: diaphoresis, Dyspnea on exertion, edema, irregular heart beat, left arm pain, lightheadedness, palpitations, PND, syncope, others Gastrointestinal: denies: abdomen distended, abdominal pain, blood streaked bowels, constipated, diarrhea, dysphagia, difficulty swallowing, hematemesis, melena, nausea, poor appetite, poor fluid intake, rectal bleeding, rectal pain, vomiting, others Genitourinary: denies: burning, dysuria, flank pain, frequency, hematuria, incontinence, penile discharge, penile sore, pain, testicle pain, testicle swelling, urgency, others Neurological: denies: dizziness, fainting, headache, left sided numbness, left sided weakness, numbness, paresthesia, pre-existing deficit, right sided numbness, right sided weakness, seizure, speech problems, tingling, tremors, weakness, others Musculoskeletal: denies: back pain, gout, joint pain, joint swelling, muscle pain, muscle stiffness, neck pain, others Integumetry: denies: bruises, change in color, change in hair/nails, dryness, laceration, lesions, lumps, rash, wounds, others Allergic/Immunocompromised: denies: Difficulty Healing, Frequent Infections, Hives, Itching, others Hematologic/Lymphatic: denies: anemia, blood clots, easy bleeding, easy bruising, swollen glands, others Endocrine: denies: excessive hunger, excessive sweating, excessive thirst, excessive urination, flushing, intolerance to cold, intolerance to heat, unexplained weight gain, unexplained weight loss, others Psychiatric: denies: anxiety, bipolar disorder, depression, hopeless, panic disorder, schizophrenia, sleepless, suicidal, others All Other Systems: Reviewed and Negative Physical Exam General Appearance: Moderate Distress HEENT: Normal ENT Inspection, Pharynx Normal, TMs Normal Neck: Full Range of Motion, Non-Tender, Normal, Normal Inspection Respiratory: Chest Non-Tender, Lungs Clear, No Accessory Muscle Use, No Re spiratory Distress, Normal Breath Sounds Cardiovascular: Irregular, No Edema, No JVD, No Murmur, No Gallop, Tachycardia Breast Exam: Deferred Gastrointestinal: No Organomegaly, Non Tender, No Pulsatile Mass, Normal Bowel Sounds, Soft Genitalia: Deferred Pelvic: Deferred Rectal: Deferred Extremities: No calf tenderness, Normal capillary refill, Normal inspection, Normal range of motion, Non-tender, No pedal edema Musculoskeletal : Apperance: Normal Neurologic: Alert, real estate accountant II-XII nml as Tested, Motor Weakness, Normal Affect, Normal Mood, No Sensory Deficits Cerebellar Function: Normal Reflexes: Normal Skin: Dry, Normal Color, Warm Lymphatic: No Adenopathy EKG EKG : Pulse Rate (adult): 164 [place]: Normal Cardiac Rhythm: Afib Block: None Hypertrophy: None ST: Normal Comments Afib RVR Was a procedure done? Was a procedure done?: No CP Differential Dx Differential Diagnosis: Angina, VA, Pulmonary Embolus Differential Diagnosis: CHF Differential Diagnosis: Pericarditis X-Ray, Labs, Meds, VS Vital Signs Date Time Temp Pulse Resp B/P (MAP) Pulse Ox O2 Delivery O2 Flow Rate FiO2 01/31/25 16:30 79 18 92/54 (67) 98 01/31/25 16:00 78 01/31/25 16:00 78 14 100/62 (75) 98 01/31/25 16:00 100/62 01/31/25 15:35 82 15 92/62 (72) 99 01/31/25 15:10 69 20 102/68 (79) 98 01/31/25 15:00 105/78 01/31/25 14:55 89 16 101/68 (79) 98 01/31/25 14:40 86/45 01/31/25 14:40 84 13 86/45 (59) 92 01/31/25 14:26 80 15 81/44 (56) 95 01/31/25 14:26 81/44 01/31/25 14:08 78/54 01/31/25 14:00 81/47 01/31/25 13:52 85/48 01/31/25 13:29 66 20 92/46 (61) 96 01/31/25 12:49 123 12 94 Room Air* 0 21 01/31/25 12:01 98.2 123 12 105/48 (67) 94 98.2 01/31/25 12:00 86/48 01/31/25 11:57 164 01/31/25 11:48 164 01/31/25 11:44 97.9 75 18 137/104 (115) 97 97.9 Lab Test 01/31/25 15:27 01/31/25 13:05 01/31/25 12:05 Range/Units Urine Color Light-yellow Yellow Urine Clarity Clear Clear Urine pH 5.0 5.0-9.0 Urine Specific [place] 1.021 1.001-1.035 Urine Protein Negative Negative Urine Ketones Negative Negative Urine Blood Negative Negative /uL Urine Nitrite Negative Negative Urine Bilirubin Negative Negative Urine Urobilinogen Normal Negative mg/dL Urine Leukocyte Esterase Negative Negative /uL Urine RBC 1 0 - 3 /hpf Urine Microscopic WBC 1 0-3 /HPF Urine Squamous Epithelial Cells Few <5 /hpf Urine Bacteria None seen None Seen /hpf Urine Glucose 4+ H Normal mg/dL Troponin I High Sensitivity 5 5 </=54 ng/L White Blood Count 11.6 H 4.4-10.8 10^3/uL Red Blood Count 5.91 H 4.5-5.90 10^6/uL Hemoglobin 17.3 13.5-17.5 g/dL Hematocrit 51.5 41.0-53.0 % Mean Corpuscular Volume 87.1 80.0-100.0 fL Mean Corpuscular Hemoglobin 29.3 28.0-32.0 pg Mean Corpuscular Hemoglobin Concent 33.7 32.0-36.0 g/dL Red Cell Distribution Width 13.7 11.8-14.3 % Platelet Count Pending Mean Platelet Volume 8.3 6.9-10.8 fL Neutrophils (%) (Auto) 65.6 37.0-80.0 % Lymphocytes (%) (Auto) 23.2 10.0-50.0 % Monocytes (%) (Auto) 8.1 0.0-12.0 % Eosinophils (%) (Auto) 2.4 0.0-7.0 % Basophils (%) (Auto) 0.7 0.0-2.0 % Neutrophils # (Auto) 7.6 1.6-8.6 10 ^3/uL Lymphocytes # (Auto) 2.7 0.4-5.4 10 ^3/uL Monocytes # (Auto) 0.9 0-1.3 10 ^3/uL Eosinophils # (Auto) 0.3 0-0.8 10 ^3/uL Basophils # (Auto) 0.1 0-0.2 10 ^3/uL Nucleated Red Blood Cells 0.3 % Platelet Estimate Pending Sodium Level 138 136-145 mmol/L Potassium Level 4.5 3.5-5.1 mmol/L Chloride Level 107 98-107 mmol/L Carbon Dioxide Level 20 20-31 mmol/L Anion Gap 11 5-15 Blood Urea Nitrogen 15 9-23 mg/dL Creatinine 1.06 0.700-1.30 mg/dL Glomerular Filtration Rate Calc 78 >90 mL/min BUN/Creatinine Ratio 14.2 10.0-20.0 Serum Glucose 140 H 74-106 mg/dL Hemoglobin A1c 7.2 H <5.7 % A1C Calcium Level 10.2 8.7-10.4 mg/dL Current Medications Medications (Trade) Dose Ordered Sig/Ciarra Route Start Time Stop Time Status Last Admin Aspirin 162 mg ONCE ONCE PO 01/31/25 12:00 01/31/25 12:01 DC 01/31/25 13:10 Amiodarone HCl 100 ml @ 600 mls/hr ONCE ONCE IV 01/31/25 12:00 01/31/25 12:09 DC 01/31/25 12:25 Sodium Chloride 500 ml @ 500 mls/hr Q1H ONCE IV 01/31/25 13:15 01/31/25 14:14 DC 01/31/25 13:24 Sodium Chloride 500 ml @ 500 mls/hr Q1H ONCE IV 01/31/25 13:30 01/31/25 14:29 DC 01/31/25 13:24 Norepinephrine Bitartrate 250 ml @ 3.75 mls/hr Q24H IV 01/31/25 13:30 01/31/25 13:52 IV Hep-Lock was established The patient was given aspirin here in the emergency department's. The patient was started with the amiodarone IV push and then the patient was started on an amiodarone drip. The patient became somewhat hypotensive so was then started on normal saline as a bolus. The patient remained somewhat hypotensive so the patient was then started on norepinephrine The urine test is negative for any infection The CBC shows an elevated white blood cell count of 11.6 but otherwise within normal limits The chemistry panel is within normal limits. The patient now has a heart rate around 100-110. The pressure has been running between 111/73 range. The patient is being admitted to the ICU. Images Reviewed?: Images reviewed and evaluated by me Time of 1ST Reevaluation: 18:24 Reevaluation 1ST: Unchanged Patient Education/Counseling: Diagnosis, Treatment, Prognosis Family Education/Counseling: No Family Present Additional Information Reviewed patient's previous visit(s): 06/22/24 for acute chest pain The following tests were ordered, and results were reviewed by me: EKG, Troponin, CBC, BMP, UA, Chest XR Additional information was gathered from interviewing the following independent historian: NONE I reviewed and agreed with the following test results read by other provider: Chest XR I discussed treatments and results with medical personnel and: Patient Comprehensive systems review obtained and negative except for what is stated in the HPI. Departure 1 Departure Time of Disposition: 18:26 Impression: Primary Impression: Atrial fibrillation with rapid ventricular response Additional Impressions: Hypotension Qualified Codes: I95.0 - Idiopathic hypotension Acute chest pain Acute myocardial ischemia Disposition: ADMITTED INPATIENT Admit to: ICU Condition: Fair Critical Care Note Critical Care Time?: Yes (55 min-critical care time only) Stability Stability form required: Yes Unstable for transfer: ICU, CCU, PCU, LILIAM (Intensive VS monitoring), ED Physician Assesment (Clinical assesment) Heart Score Heart Score: Heart Score Response (Comments) Value History Highly Suspicious [address]-Deviation 2 Age >65 2 Risk Factors >3 or Hx ASHD 2 Troponin Normal limit 0 Total 8 I personally scribed for MILKA CASTILLO MD ([email or web address]) on 01/31/25 at 11:57. Electronically submitted by Hernan Sosa ([email or web address]). I personally scribed for MILKA CASTILLO MD ([email or web address]) on 01/31/25 at 11:57. Electronically submitted by Hernan Sosa ([email or web address]). MILKA CASTILLO MD Jan 31, 2025 11:57
[2025-01-31] MEDS: cloNIDine HCL 0.1 MG TAB PO ONE (12:00)
[2025-01-31] MEDS: AMIODARONE 360mg/200mL PREMIX 200 ML IV ONE (12:15)
[2025-01-31 12:16] LABS: Basophils # (auto) 0.1 10 ^3/uL (0-0.2); Basophils % (auto) 0.7 % (0.0-2.0); Eosinophils # (auto) 0.3 10 ^3/uL (0-0.8); Eosinophils % (auto) 2.4 % (0.0-7.0); Hematocrit 51.5 % (41.0-53.0); Hemoglobin 17.3 g/dL (13.5-17.5); Lymphocytes # (auto) 2.7 10 ^3/uL (0.4-5.4); Lymphocytes % (auto) 23.2 % (10.0-50.0); Mean Corpuscular Hemoglobin 29.3 pg (28.0-32.0); Mean Corpuscular Hgb Conc. 33.7 g/dL (32.0-36.0); Mean Corpuscular Volume 87.1 fL (80.0-100.0); Monocytes # (auto) 0.9 10 ^3/uL (0-1.3); Monocytes % (auto) 8.1 % (0.0-12.0); Neutrophils # (auto) 7.6 10 ^3/uL (1.6-8.6); Neutrophils % (auto) 65.6 % (37.0-80.0); Nucleated Red Blood Cells % 0.3 %; Platelet Count (auto) 271 10^3/uL (140-450); Red Blood Cells 5.91 10^6/uL (4.5-5.90); Red Cell Distribution Width 13.7 % (11.8-14.3); White Blood Cell 11.6 10^3/uL (4.4-10.8)
[2025-01-31] MEDS: AMIODARONE BOLUS KIT 100 ML IV ONE (12:25)
[2025-01-31 12:31] LABS: Potassium 4.5 mmol/L (3.5-5.1); Sodium 138 mmol/L (136-145)
--- NOTE | 2025-01-31 12:31 | DVH ---
EXAM: XY CHEST PORTABLE HISTORY: cp COMPARISON: XY CHEST PORTABLE on DOS: 06/22/24, XY CHEST PORTABLE on DOS: 07/15/23, XY CHEST PORTABLE on DOS: 07/11/23, CHEST PORTABLE on DOS: 10/26/21 TECHNIQUE: Portable AP view of the chest was performed. FINDINGS: No pneumothorax, consolidative infiltrates, or pulmonary edema. The heart is borderline enlarged. IMPRESSION: No acute intrathoracic process.
[2025-01-31 12:32] LABS: Anion Gap 11 (5-15); Calcium 10.2 mg/dL (8.7-10.4)
[2025-01-31 12:37] LABS: BUN/Creatinine Ratio 14.2 (10.0-20.0); Blood Urea Nitrogen 15 mg/dL (9-23); Carbon Dioxide 20 mmol/L (20-31); Chloride 107 mmol/L (98-107); Glucose 140 mg/dL (74-106)
[2025-01-31] MEDS: ASPirin 81 mg TAB PO ONE (13:10)
[2025-01-31] MEDS: NOREPINEPHRINE 8 MG/250ML KIT 250 ML IV ONE (13:21)
[2025-01-31] MEDS: SODIUM CHLORIDE 0.9% 500 ML IV ONE ×2 (13:24)
[2025-01-31] MEDS: NOREPINEPHRINE 8 MG/250ML KIT 250 ML IV SCH (13:52)
[2025-01-31 15:33] LABS: Urine Bacteria None Seen /hpf (None Seen)
[2025-01-31 15:44] LABS: Urine Blood Negative /uL (Negative); Urine Clarity Clear (Clear); Urine Color Light-Yellow (Yellow); Urine Protein, UAD Negative (Negative); Urine Specific Gravity 1.021 (1.001-1.035); Urine Squamous Epithelial Cell FEW /hpf (<5); Urine Urobilinogen Normal (Negative); Urine WBC 1 /HPF (0-3)
[2025-01-31] MEDS ORDERED: DEXTROSE (50%) 50ML SYRG IV PRN (16:45)
[2025-01-31] MEDS ORDERED: MORPHINE SULFATE INJ 2 MG/ml SYRG IV PRN (16:45)
[2025-01-31] MEDS ORDERED: ACETAMINOPHEN 325 MG TAB PO PRN (16:45)
[2025-01-31] MEDS ORDERED: ONDANSETRON HCL 4 MG/2 ML VIAL IV PRN (16:45)
[2025-01-31] MEDS ORDERED: NITROGLYCERIN 0.4 MG SL TAB SL PRN (16:45)
[2025-01-31] MEDS ORDERED: TAMS0.4C39 PO (16:52)
[2025-01-31] MEDS: InsuLIN REG 1unit/0.01ml Soln (100units/ml) SC SCH (17:00)
--- NOTE | 2025-01-31 17:07 | DVHHP2 ---
History of Present Illness Reason for Visit: Dizziness History of Present Illness Delbert Whiting is a 64-year-old male with past medical history of CAD, hypertension, hyperlipidemia, diabetes type 2, COPD, CHF, VT, gout, neuropathy, cholecystectomy, bilateral knee surgery, and right ankle surgery who presents to the ED with dizziness. Patient states that when he got up this morning the room was spinning and he was complaining of shortness of breath. Patient also reports that he called his PCP today with his blood pressure readings SBP from 103-130s it was reported to go in to the ED for evaluation. Patient also stated that his PCP stated that his red blood cells was too high. Upon examination patient currently is on Levophed drip and hypotensive. Patient states that he typically walks with a cane and lives alone. He also reports that he drinks occasionally quit smoking and does not use illicit drugs. Patient denies any chest pain, recent trauma or injury, recent sick contacts, recent ingestion of spoiled food, recent travels, fever, chills, lightheadedness, weakness, abdominal pain, nausea, vomiting, or diarrhea. Cardiovascular: CAD, CHF, HTN, VT, hyperipidemia Pulmonary: COPD Rheumatologic: Gout Endocrine: Diabetes Past Medical History Neuropathy Past Surgical History: Cholecystectomy, Other (Bilateral knee surgery and right ankle surgery) Family History: DM, Other (Mom with diabetes and heart disease) Smoke: Quit ALCOHOL: occassional Drugs: None Lives: Alone Domestic Violence: Neg Review of Systems Constitutional: Yes: Other Respiratory: Shortness of breath Allergies: Coded Allergies: NO KNOWN ALLERGIES (Unverified , 02/03/18) Medications Current Medications Medications Dose Ordered Sig/Ciarra Route Start Time Stop Time Status Last Admin Dose Admin Norepinephrine Bitartrate 250 ml @ 3.75 mls/hr Q24H IV 01/31/25 13:30 01/31/25 13:52 3.75 MLS/HR Exam Vital Signs Vital Signs Date Time Temp Pulse Resp B/P (MAP) Pulse Ox O2 Delivery O2 Flow Rate FiO2 01/31/25 16:30 79 18 92/54 (67) 98 01/31/25 12:49 Room Air* 0 21 01/31/25 12:01 98.2 98.2 General Appearance: Alert, Oriented X3, Cooperative, No acute distress HEENT: Atraumatic, PERRLA, EOMI, Mucous membr. moist/pink Respiratory: Clear to auscultation, Normal air movement Cardiovascular: Normal S1, Normal S2, No murmurs Abdominal: Normal bowel sounds, Soft Extremities: No clubbing, No cyanosis, No edema, Normal pulses Skin: No significant lesion Neuro: Normal speech, Strength at 5/5 X4 ext, Normal tone, Sensation intact Psych/Mental Status: Mental status NL, Mood NL Labs/Xrays Labs Test 01/31/25 15:27 01/31/25 13:05 01/31/25 12:05 Range/Units Urine Color Light-yellow Yellow Urine Clarity Clear Clear Urine pH 5.0 5.0-9.0 Urine Specific [place] 1.021 1.001-1.035 Urine Protein Negative Negative Urine Ketones Negative Negative Urine Blood Negative Negative /uL Urine Nitrite Negative Negative Urine Bilirubin Negative Negative Urine Urobilinogen Normal Negative mg/dL Urine Leukocyte Esterase Negative Negative /uL Urine RBC 1 0 - 3 /hpf Urine Microscopic WBC 1 0-3 /HPF Urine Squamous Epithelial Cells Few <5 /hpf Urine Bacteria None seen None Seen /hpf Urine Glucose 4+ H Normal mg/dL Troponin I High Sensitivity 5 </=54 ng/L White Blood Count 11.6 H 4.4-10.8 10^3/uL Red Blood Count 5.91 H 4.5-5.90 10^6/uL Hemoglobin 17.3 13.5-17.5 g/dL Hematocrit 51.5 41.0-53.0 % Mean Corpuscular Volume 87.1 80.0-100.0 fL Mean Corpuscular Hemoglobin 29.3 28.0-32.0 pg Mean Corpuscular Hemoglobin Concent 33.7 32.0-36.0 g/dL Red Cell Distribution Width 13.7 11.8-14.3 % Platelet Count 271 140-450 10^3/uL Mean Platelet Volume 8.3 6.9-10.8 fL Neutrophils (%) (Auto) 65.6 37.0-80.0 % Lymphocytes (%) (Auto) 23.2 10.0-50.0 % Monocytes (%) (Auto) 8.1 0.0-12.0 % Eosinophils (%) (Auto) 2.4 0.0-7.0 % Basophils (%) (Auto) 0.7 0.0-2.0 % Neutrophils # (Auto) 7.6 1.6-8.6 10 ^3/uL Lymphocytes # (Auto) 2.7 0.4-5.4 10 ^3/uL Monocytes # (Auto) 0.9 0-1.3 10 ^3/uL Eosinophils # (Auto) 0.3 0-0.8 10 ^3/uL Basophils # (Auto) 0.1 0-0.2 10 ^3/uL Nucleated Red Blood Cells 0.3 % Sodium Level 138 136-145 mmol/L Potassium Level 4.5 3.5-5.1 mmol/L Chloride Level 107 98-107 mmol/L Carbon Dioxide Level 20 20-31 mmol/L Anion Gap 11 5-15 Blood Urea Nitrogen 15 9-23 mg/dL Creatinine 1.06 0.700-1.30 mg/dL Glomerular Filtration Rate Calc 78 >90 mL/min BUN/Creatinine Ratio 14.2 10.0-20.0 Serum Glucose 140 H 74-106 mg/dL Calcium Level 10.2 8.7-10.4 mg/dL EXAM: XY CHEST PORTABLE HISTORY: cp COMPARISON: XY CHEST PORTABLE on DOS: 06/22/24, XY CHEST PORTABLE on DOS: 07/15/23, XY CHEST PORTABLE on DOS: 07/11/23, CHEST PORTABLE on DOS: 10/26/21 TECHNIQUE: Portable AP view of the chest was performed. FINDINGS: No pneumothorax, consolidative infiltrates, or pulmonary edema. The heart is borderline enlarged. IMPRESSION: No acute intrathoracic process. Assessment/Plan Assessment/Plan Assessment Autonomic imbalance with shortness of breath Leukocytosis unknown etiology AFib RVR History of CAD History of hypertension History of hyperlipidemia History of diabetes type 2 History of COPD History of CHF History of VT History of gout History of neuropathy History of cholecystectomy History of bilateral knee surgery History of right ankle surgery Plan Admit to ICU Vasopressor to keep maps greater than 65 IV antibiotics-ceftriaxone A.m. EKG noted was to be in AFib RVR Currently on the monitor in the afternoon patient is normal sinus 80s RBC morphology UA NS 1 L given ED Strict I&Os Daily weight Amnio given ED Clonidine given ED Aspirin given ED Chest x-ray noted EKG Troponin negative x2 Hemoglobin A1c ISS and Accu-Cheks Echo ordered Carotid ultrasound ordered CT head ordered Diet DVT prophylaxis-Lovenox PUD prophylaxis-not indicated no history of GERD or GI bleed Discussed plan of care with patient and nurse Cardiology consult for new onset of AFib Plan discussed with: Patient My Orders Orders - TANIA GARCIA Procedure Category Date Status Time Admit ADMIT 01/31/25 Transmitted 16:37 Allergies ANA 01/31/25 Transmitted 16:37 Ondansetron Hcl PHA 01/31/25 Transmitted (Zofran) 16:45 Complete Blood Count LAB 02/01/25 Verified 04:00 Comprehensive LAB 02/01/25 Verified Metabolic Panel 04:00 Cardiac DIET 01/31/25 Transmitted Diet-2gna,Lofat,Lochol Dinner Echo 2d Mode Cardiac US 01/31/25 Transmitted DOP 16:37 Acetaminophen Tablet PHA 01/31/25 Transmitted (Tylenol Tablet) 16:45 Nitroglycerin PHA 01/31/25 Transmitted Sublingual (Ntrostat 16:45 Morphine Sulfate PHA 01/31/25 Transmitted Injection 16:45 Stat Ekg For Chest ANA 01/31/25 Transmitted Pain 16:37 Notify Md Of Changes [facility] 01/31/25 Transmitted From Base 16:37 Wall Cleaner For [facility] 01/31/25 Transmitted 24 Hours 16:37 Emergency Dysrhythmia [facility] 01/31/25 Transmitted Protocol 16:37 Rhythm Strips Once [facility] 01/31/25 Transmitted Every Shift 16:37 Oxygen By Nasal RT 01/31/25 Transmitted Cannula 16:37 Carotid Duplx W Color US 01/31/25 Transmitted DOP 16:37 Glucose Blood PHA 01/31/25 Transmitted (Accu-Chek Comfort 17:00 Mild Sliding Scale PHA 01/31/25 Transmitted 17:00 Dextrose 50% Syringe PHA 01/31/25 Transmitted 16:45 Hemoglobin A1c LAB 01/31/25 Transmitted 16:37 Aspirin Enteric PHA 02/01/25 Transmitted Coated Tablet 10:00 Lisinopril Tablet PHA 02/01/25 Transmitted (Zestril Tablet) 10:00 (Nf) Atorvastatin PHA 02/01/25 Transmitted Calcium (Lipitor) 10:00 (Nf) Gabapentin PHA 01/31/25 Transmitted 22:[address] 01/31/25 Transmitted 16:37 Date of Service: Jan 31, 2025 Billing Provider: TANIA GARCIA Common Visit Codes: [id number] INP/OBS CARE (HIGH) TANIA GARCIA Jan 31, 2025 17:07
[2025-01-31] MEDS: ACCU-CHEK COMFORT CURVE STRIP VI SCH (17:19)
--- NOTE | 2025-01-31 17:25 | DVH ---
EXAM: CT HEAD WITHOUT CONTRAST HISTORY: dizziness COMPARISON: None TECHNIQUE: Axial images of the head were obtained and reformatted in coronal and sagittal planes. All CT scans at this medical facility are performed using dose modulation techniques as appropriate t o a performed exam including the following: Automated exposure control was utilized; adjustment of th e MA and/or KV according to patient size; and use of iterative reconstruction technique. CT Dose: CTDI volume is 63.82 mGy. Dose-length product is 1129.89 mGy*cm FINDINGS: There is no evidence of acute intracranial hemorrhage, mass, mass effect midline shift. There is no h ydrocephalus or extra-axial fluid collection. [place]te[place]-white matter differentiation is maintained. The visualized paranasal sinuses and mastoid air cells are clear. The calvarium is intact. IMPRESSION: 1. No acute intracranial process. HS:Y
[2025-01-31] MEDS: ENOXAPARIN SOD 40 MG/0.4 ML SYRINGE SC SCH (17:44)
--- NOTE | 2025-01-31 17:55 | DVH ---
EXAM: US Duplex Bilateral Extracranial Arteries CLINICAL INDICATION: dizziness TECHNIQUE: Real-time duplex ultrasound scan of the extracranial arteries integrating B-mode two-dime nsional vascular structure, Doppler spectral analysis and color flow Doppler imaging. CONTRAST: COMPARISON: None FINDINGS: RIGHT COMMON CAROTID ARTERY: Unremarkable. No occlusion or significant stenosis on color flow and spectral Doppler imaging. Peak systolic velocity in the right common carotid artery (CCA) is 72 cm/s . RIGHT INTERNAL CAROTID ARTERY: Unremarkable. No occlusion or significant stenosis on color flow an d spectral Doppler imaging. Peak systolic velocity in the right internal carotid artery (ICA) is 58 cm/s. RIGHT EXTERNAL CAROTID ARTERY: Unremarkable. No occlusion or significant stenosis on color flow an d spectral Doppler imaging. RIGHT VERTEBRAL ARTERY: Unremarkable. Antegrade flow. RIGHT ICA/CCA RATIO: Unremarkable. The ICA/CCA peak systolic velocity ratio is 1.2 on the right. LEFT COMMON CAROTID ARTERY: Unremarkable. No occlusion or significant stenosis on color flow and s pectral Doppler imaging. Peak systolic velocity in the left common carotid artery (CCA) is 83 cm/s. LEFT INTERNAL CAROTID ARTERY: Unremarkable. No occlusion or significant stenosis on color flow and spectral Doppler imaging. Peak systolic velocity in the left internal carotid artery (ICA) is 58 cm /s. LEFT EXTERNAL CAROTID ARTERY: Unremarkable. No occlusion or significant stenosis on color flow and spectral Doppler imaging. LEFT VERTEBRAL ARTERY: Unremarkable. Antegrade flow. LEFT ICA/CCA RATIO: Unremarkable. The ICA/CCA peak systolic velocity ratio is 0.7 on the left. LYMPH NODES: Unremarkable. No lymphadenopathy. OTHER FINDINGS: . . CAROTID STENOSIS REFERENCE USING IAC CRITERIA: Mild - <50% stenosis. ICA PSV is less than 180 cm/s and plaque or intimal thickening is visible. Moderate - 50-69% stenosis. ICA PSV is 180 to 230 cm/s and plaque is visible. Severe - 70-94% stenosis. ICA PSV is more than 230 cm/s and visible plaque with lumen narrowing is s een. Near occlusion - 95-99% stenosis. ICA PSV is variable and significant plaque with luminal narrowing is seen. Occluded - 100% stenosis. No flow identified. IMPRESSION: No acute findings in the arteries of the neck.
[2025-01-31 19:36] LABS: Platelet Count (auto) 271 10^3/uL (140-450); Platelet Estimate Adequate
[2025-01-31 19:38] LABS: Ovalocytes FEW
[2025-01-31] MEDS: CARVEDILOL 3.125 MG TAB PO SCH (22:25)
[2025-01-31] MEDS: GABAPENTIN 300 MG CAP PO SCH (22:30)
[2025-02-01] VITALS (85 sets, daily range): BP systolic 70–143; BP diastolic 36–91; PULSE 59–146; RESP 10–28; TEMP 97.9–98.9; O2SAT 16–100
[2025-02-01 05:23] LABS: Basophils # (auto) 0 10 ^3/uL (0-0.2); Basophils % (auto) 0.5 % (0.0-2.0); Eosinophils # (auto) 0.2 10 ^3/uL (0-0.8); Eosinophils % (auto) 2.5 % (0.0-7.0); Hematocrit 49.1 % (41.0-53.0); Hemoglobin 16.5 g/dL (13.5-17.5); Lymphocytes # (auto) 2.4 10 ^3/uL (0.4-5.4); Lymphocytes % (auto) 26.3 % (10.0-50.0); Mean Corpuscular Hemoglobin 29.1 pg (28.0-32.0); Mean Corpuscular Hgb Conc. 33.6 g/dL (32.0-36.0); Mean Corpuscular Volume 86.6 fL (80.0-100.0); Monocytes # (auto) 0.9 10 ^3/uL (0-1.3); Monocytes % (auto) 10.1 % (0.0-12.0); Neutrophils # (auto) 5.5 10 ^3/uL (1.6-8.6); Neutrophils % (auto) 60.6 % (37.0-80.0); Nucleated Red Blood Cells % 0.2 %; Platelet Count (auto) 205 10^3/uL (140-450); Red Blood Cells 5.67 10^6/uL (4.5-5.90); Red Cell Distribution Width 13.5 % (11.8-14.3); White Blood Cell 9.1 10^3/uL (4.4-10.8)
[2025-02-01 05:42] LABS: Alanine Aminotransferase 31 U/L (7-40); Albumin 4.1 g/dL (3.2-4.8); Alkaline Phosphatase 77 U/L (46-116); Anion Gap 9 (5-15); Aspartate Aminotransferase 22 U/L (13-40); BUN/Creatinine Ratio 18.8 (10.0-20.0); Blood Urea Nitrogen 16 mg/dL (9-23); Calcium 9.4 mg/dL (8.7-10.4); Carbon Dioxide 23 mmol/L (20-31); Chloride 109 mmol/L (98-107); Glucose 108 mg/dL (74-106); Potassium 4.5 mmol/L (3.5-5.1); Sodium 141 mmol/L (136-145); Total Protein 6.4 g/dL (5.7-8.2)
[2025-02-01] MEDS: ASPirin-EC 81 mg tab PO SCH (09:58)
[2025-02-01] MEDS: ATORVASTATIN 20 MG TAB PO SCH (09:58)
[2025-02-01] MEDS: LISINOPRIL 5 MG TAB PO SCH (09:58)
[2025-02-01] MEDS: TAMSULOSIN HYDROCHLORIDE 0.4 MG CAP PO SCH (17:13)
[2025-02-01] MEDS: NOREPINEPHRINE 8 MG/250ML KIT 250 ML IV SCH (17:45)
--- NOTE | 2025-02-01 18:20 | DVHPN2 ---
Subjective I am assuming the care of the patient from today onwards who was under the care of the hospitalist team. Patient is currently denies any dizziness but still on Levophed. Reviewed: Care Plan Changes from previous H/P or p: No Changes Respiratory: Shortness of breath Objective Vitals Vital Signs Date Time Temp Pulse Resp B/P (MAP) Pulse Ox O2 Delivery O2 Flow Rate FiO2 02/01/25 18:01 89 02/01/25 18:01 14 98 Room Air* 0 21 02/01/25 18:00 93/58 (70) 02/01/25 16:00 97.9 97.9 Intake/Output Intake and Output 02/01/25 07:00 Intake Total 198.75 ml Output Total 2700 ml Balance -2501.25 ml IV Total 198.75 ml Output Urine Total 2700 ml # Voids 8 Exam HEENT pupils are reactive Neck is supple CV is S1-S2 regular rate and rhythm Respiratory diminished breath sounds bases GI positive bowel sound Extremity no edema [facility] no motor deficit Medications Current Medications Medications Dose Ordered Sig/Ciarra Route Start Time Stop Time Status Last Admin Dose Admin Ondansetron HCl 4 mg Q4HP PRN IV 01/31/25 16:45 Acetaminophen 650 mg Q6HP PRN PO 01/31/25 16:45 Nitroglycerin 0.4 mg Q5MINP PRN SL 01/31/25 16:45 Morphine Sulfate 2 mg Q30M PRN IV 01/31/25 16:45 Diagnostic Test (Pha) 1 strip ACHS 01/31/25 17:00 02/01/25 17:13 1 STRIP Insulin Human Regular ACHS SC 01/31/25 17:00 02/01/25 17:16 2 UNITS Dextrose 50 ml UD PRN IV 01/31/25 16:45 Aspirin 81 mg DAILY PO 02/01/25 10:00 02/01/25 09:58 81 MG Lisinopril 5 mg DAILY PO 02/01/25 10:00 Atorvastatin Calcium 10 mg DAILY PO 02/01/25 10:00 02/01/25 09:58 10 MG Gabapentin 600 mg BID PO 01/31/25 22:00 02/01/25 09:58 600 MG Enoxaparin Sodium 40 mg DAILY SC 01/31/25 17:15 02/01/25 09:58 40 MG Carvedilol 3.125 mg Q12HR PO 01/31/25 22:00 Hold 01/31/25 22:25 3.125 MG Tamsulosin HCl 0.4 mg QPM PO 02/01/25 18:00 02/01/25 17:13 0.4 MG Norepinephrine Bitartrate 250 ml @ 3.75 mls/hr Q24H IV 02/01/25 17:45 Laboratory Results Laboratory Tests 02/01/25 05:02 Chemistry Test 02/01/25 05:02 Albumin 4.1 g/dL (3.2-4.8) Calcium Level 9.4 mg/dL (8.7-10.4) Total Protein 6.4 g/dL (5.7-8.2) LFT Test 02/01/25 05:02 Alanine Aminotransferase (ALT) 31 U/L (7-40) Alkaline Phosphatase 77 U/L (46-116) Aspartate Amino Transferase (AST) 22 U/L (13-40) Total Bilirubin 3.0 mg/dL (0.2-1.0) H Urinalysis Test 01/31/25 15:27 Urine Color Light-yellow (Yellow) Urine Clarity Clear (Clear) Urine pH 5.0 (5.0-9.0) Urine Specific [place] 1.021 (1.001-1.035) Urine Protein Negative (Negative) Urine Ketones Negative (Negative) Urine Blood Negative /uL (Negative) Urine Nitrite Negative (Negative) Urine Bilirubin Negative (Negative) Urine Urobilinogen Normal mg/dL (Negative) Urine Leukocyte Esterase Negative /uL (Negative) Urine RBC 1 /hpf (0 - 3) Urine Microscopic WBC 1 /HPF (0-3) Urine Squamous Epithelial Cells Few /hpf (<5) Urine Bacteria None seen /hpf (None Seen) Urine Glucose 4+ mg/dL (Normal) H Assessment/Plan Assessment/Plan 64-year-old male with a known history of coronary artery disease, hypertension, dyslipidemia, diabetes mellitus type 2, COPD who initially presented to the hospital with chest pain shortness of breath and dizzy spells found to have 1. Hypotension requiring Levophed 2. Dizziness/vertigo ruled out acute [facility] [employer] [facility] pathology 3. Coronary artery disease 4. Dyslipidemia 5. diabetes mellitus type 2 6. COPD not in exacerbation -atrial Levophed, 2D echo cardiology consultation Plan discussed with: Patient My Orders Orders - YVONNE HENRIQUEZ MD Procedure Category Date Status Time Tamsulosin PHA 02/01/25 In Process Hydrochloride (Flomax) 18:00 Norepinephrine 8 PHA 02/01/25 In Process Mg/250ml Kit 17:45 Communication Order ORDERS 02/01/25 Transmitted 17:43 Date of Service: Feb 01, 2025 Billing Provider: YVONNE HENRIQUEZ MD Common Visit Codes: [id number] INP/OBS CARE(HIGH) YVONNE HENRIQUEZ MD Feb 01, 2025 18:20
--- NOTE | 2025-02-01 19:03 | DVHSR ---
APPROVED REPORT EXAM: LIMITED Two-dimensional and M-mode echocardiogram with Doppler and color Doppler. Blood Pressure: 132/78 mmHg INDICATION Dizziness and Vertigo RISK FACTORS Obesity: Height: 5' 7", Weight: 219 DIMENSIONS LVDd4.5 (3.8-5.7cm)LA (2D)4.0 (1.9-4.0cm)Aortic Root3.4 (2.0-3.7cm) LVDs3.0 (2.5-4.0cm)LA (MM) (1.9-4.0cm)Aortic Cusp Exc2.3 (1.5-2.0cm) EF (%) 62.0 (55-70%)Rt. Atrium (1.9-4.0cm)Asc. Aorta cm IVSd1.3 (0.7-1.1cm)RV (D) (1.8-2.4cm) PWd1.4 (0.7-1.1cm) Mitral Valve MitralMitral Stenosis E wave1.00m/sMV Mean GR.mmHg A wave0.70m/sMV Peak GR.mmHg E/A ratio1.42D MVAcm2 Aortic Valve Aortic ValveAortic Stenosis V10.60m/Sylvia Mean GR.2mmHg V21.00m/Sylvia Peak GR.4mmHg LVOT Diameter2.3 (1.8-2.4cm)Doppler AVA2.49cm2 Pulmonic Valve V20.50m/s Tricuspid Valve TR Velocity3.00m/s [id number] Conclusion MILD LVH AND MILD LV DIASTOLIC DYSFUNCTION LV EF IS 65% AORTIC SCLEROSIS BUT NO STENOSIS MODERATE DEGREE PULMONARY HYPERTENSION RVSP IS 43 MM OF HG AND IS HIGH NORMAL RV FUNCTION NO EFFUSION
[2025-02-02] VITALS (21 sets, daily range): BP systolic 90–127; BP diastolic 41–85; PULSE 66–101; RESP 1–23; TEMP 97.9–98.4; O2SAT 91–96
[2025-02-02] MEDS: RIVAROXABAN 20 MG TAB PO SCH (17:09)
[2025-02-02] MEDS ORDERED: RIV20T PO (17:18)
[2025-02-02] MEDS ORDERED: AMIO200T13 PO (17:18)
--- NOTE | 2025-02-02 17:20 | DVHDS2 ---
Discharge Summary Date of Admission Jan 31, 2025 at 16:37 Date of Discharge: Feb 02, 2025 Labs/Diagnostic Data: Laboratory Results Test 02/02/25 11:26 02/01/25 05:02 01/31/25 15:27 01/31/25 13:05 POC Glucose 128 mg/dl (70-106) White Blood Count 9.1 10^3/uL (4.4-10.8) Red Blood Count 5.67 10^6/uL (4.5-5.90) Hemoglobin 16.5 g/dL (13.5-17.5) Hematocrit 49.1 % (41.0-53.0) Mean Corpuscular Volume 86.6 fL (80.0-100.0) Mean Corpuscular Hemoglobin 29.1 pg (28.0-32.0) Mean Corpuscular Hemoglobin Concent 33.6 g/dL (32.0-36.0) Red Cell Distribution Width 13.5 % (11.8-14.3) Platelet Count 205 10^3/uL (140-450) Mean Platelet Volume 8.3 fL (6.9-10.8) Neutrophils (%) (Auto) 60.6 % (37.0-80.0) Lymphocytes (%) (Auto) 26.3 % (10.0-50.0) Monocytes (%) (Auto) 10.1 % (0.0-12.0) Eosinophils (%) (Auto) 2.5 % (0.0-7.0) Basophils (%) (Auto) 0.5 % (0.0-2.0) Neutrophils # (Auto) 5.5 10 ^3/uL (1.6-8.6) Lymphocytes # (Auto) 2.4 10 ^3/uL (0.4-5.4) Monocytes # (Auto) 0.9 10 ^3/uL (0-1.3) Eosinophils # (Auto) 0.2 10 ^3/uL (0-0.8) Basophils # (Auto) 0 10 ^3/uL (0-0.2) Nucleated Red Blood Cells 0.2 % Sodium Level 141 mmol/L (136-145) Potassium Level 4.5 mmol/L (3.5-5.1) Chloride Level 109 mmol/L (98-107) Carbon Dioxide Level 23 mmol/L (20-31) Anion Gap 9 (5-15) Blood Urea Nitrogen 16 mg/dL (9-23) Creatinine 0.85 mg/dL (0.700-1.30) Glomerular Filtration Rate Calc 96 mL/min (>90) BUN/Creatinine Ratio 18.8 (10.0-20.0) Serum Glucose 108 mg/dL (74-106) Calcium Level 9.4 mg/dL (8.7-10.4) Total Bilirubin 3.0 mg/dL (0.2-1.0) Aspartate Amino Transferase (AST) 22 U/L (13-40) Alanine Aminotransferase (ALT) 31 U/L (7-40) Alkaline Phosphatase 77 U/L (46-116) Total Protein 6.4 g/dL (5.7-8.2) Albumin 4.1 g/dL (3.2-4.8) Urine Color Light-yellow (Yellow) Urine Clarity Clear (Clear) Urine pH 5.0 (5.0-9.0) Urine Specific [place] 1.021 (1.001-1.035) Urine Protein Negative (Negative) Urine Ketones Negative (Negative) Urine Blood Negative /uL (Negative) Urine Nitrite Negative (Negative) Urine Bilirubin Negative (Negative) Urine Urobilinogen Normal mg/dL (Negative) Urine Leukocyte Esterase Negative /uL (Negative) Urine RBC 1 /hpf (0 - 3) Urine Microscopic WBC 1 /HPF (0-3) Urine Squamous Epithelial Cells Few /hpf (<5) Urine Bacteria None seen /hpf (None Seen) Urine Glucose 4+ mg/dL (Normal) Troponin I High Sensitivity 5 ng/L (</=54) Test 01/31/25 12:05 Platelet Estimate Adequate Ovalocytes Few Hemoglobin A1c 7.2 % A1C (<5.7) Other Laboratory Tests 02/01/25 05:02 Brief Hx & Hospital Course: 64-year-old male with a known history of coronary artery disease, hypertension, dyslipidemia, diabetes mellitus type 2, COPD who initially presented to the hospital with chest pain shortness of breath and dizzy spells found to have AFib with a RVR started on amiodarone drip. Also patient has became hypotensive after amiodarone started on Levophed which is currently off. Patient was seen by Cardiology recommended to be on amiodarone p.o. as well as anticoagulation. Xarelto was started. Risks benefits and alternatives of Xarelto including life- threatening bleeding disability explained to the patient in detail who understand verbalized understanding and agreeable to plan. Condition at Discharge: Stable Final Diagnosis/Problems List 64-year-old male with a known history of coronary artery disease, hypertension, dyslipidemia, diabetes mellitus type 2, COPD who initially presented to the hospital with chest pain shortness of breath and dizzy spells found to have 1. Hypotension requiring Levophed , resolved 2. Dizziness ruled out acute [facility] [employer] [facility] pathology 3. Coronary artery disease 4. Dyslipidemia 5. diabetes mellitus type 2 6. COPD not in exacerbation Discharge Disposition: Home SNF Discharge Will this Physician continue t: No Discharge Instruct/Medications Diet: Cardiac 2g Na,low cholest Diet comment: Two thousand ADA diet Activity: No Restrictions, As Tolerated Follow Up/Referral: Follow up with the PCP in one week Follow up with Cardiology in 1-2 weeks Medications: Resume home medications Discharge Statement: "Patient was advised to return to the ER or call 911 if any headaches, dizziness, shortness of breath, chest pain, abdominal pain, bleeding, fevers, or worsening of medical condition. Patient was counseled about treatment plan, medications, possible side effects, patientverbalized understanding. All questions were answered to the best of my ability. This discharge took greater then 30 minutes in planning, reviewing documentation, counseling the patient, and discussing with other team members." ASSESSMENT ASSESSMENT Assessment 64-year-old male with a known history of coronary artery disease, hypertension, dyslipidemia, diabetes mellitus type 2, COPD who initially presented to the hospital with chest pain shortness of breath and dizzy spells found to have 1. Hypotension requiring Levophed , resolved 2. Dizziness ruled out acute [facility] pathology 3. Coronary artery disease 4. Dyslipidemia 5. diabetes mellitus type 2 6. COPD not in exacerbation Date of Service: Feb 02, 2025 Billing Provider: YVONNE HENRIQUEZ MD Common Visit Codes: [id number] DISCH DAY >30min YVONNE HENRIQUEZ MD Feb 02, 2025 17:20
[2025-02-02] MEDS ORDERED: AMIODARONE HCL 200 MG TAB PO SCH (22:00)
--- NOTE | 2025-02-02 22:53 | DVHINCON2 ---
Date of service: Feb 02, 2025 Referring Physician Cooper Reason for Consultation A-fib RVR History of Present Illness This is a 64-year-old male with a past medical history of CAD, hypertension, hyperlipidemia, diabetes type 2, COPD, CHF, AK, gout, neuropathy, cholecystectomy, bilateral knee surgery, and right ankle surgery who presents to the ED with a complaint of dizziness. Patient states that when he got up this morning the room was spinning and also noted feeling short of breath. Patient also reports that he called his PCP today with his blood pressure readings SBP from 103-130s he was advised by his PCP to come to the ED for further evaluation. Patient also stated that his PCP advised him that his RBCs were too high. Patient states that he typically walks with a cane and lives alone. He also reports that he drinks occasionally, quit smoking and does not use illicit drugs. Chest x-ray shows NAD. US Duplex Bilateral Extracranial Arteries showed no acute findings in the arteries of the neck. CT head shows no acute intracranial abnormality. EKG shows A Fib with RVR at 164. Patient was admitted to the hospital. I am asked to consult on this patient. Family History: Diabetes mellitus G8 MOTHER G8 FATHER FH: CHF (congestive heart failure) G8 FATHER Allergies: Coded Allergies: NO KNOWN ALLERGIES (Unverified , 02/03/18) Home Meds Active Scripts Rivaroxaban (Xarelto Tablet) 20 Mg Tb, 20 MG PO QPM for 30 Days, #30 TAB Prov:YVONNE HENRIQUEZ MD 02/02/25 Amiodarone HCl (Amiodarone HCl) 200 Mg Tab, 200 MG PO Q12HR for 30 Days, #60 TAB Prov:YVONNE HENRIQUEZ MD 02/02/25 Atorvastatin Calcium (Lipitor) 10 Mg Tab, 1 TAB PO DAILY, #30 TAB Prov:JUDY ADLER MD 10/28/21 Acetaminophen (Tylenol 8 Hour Arthritis) 650 Mg Tab, 650 MG PO TID for 10 Days, #30 TAB Prov:BRENDON RODRIGUEZ 09/03/21 Reported Medications Tamsulosin Hcl (Tamsulosin Hcl) 0.4 Mg Cap, CAP PO 01/31/25 Dulaglutide (Trulicity) 1.5 Mg/0.5 Ml Inj, 0.5 ML SC QWEDNESDAY INJECT 0.5 ML (1 AND 1/2 MILLIGRAMS) SC Q Monday01/06/21 Alogliptin Benzoate (Alogliptin) 25 Mg Tab, 25 MG PO DAILY, TAB 12/25/20 Pioglitazone Hydrochloride (Actos) 15 Mg Tab, 15 MG PO DAILY, TAB 12/25/20 Aspirin (Aspir-Low) 81 Mg Tab, 81 MG PO DAILY for 30 Days, MG 12/25/20 Gabapentin (Gabapentin) 600 Mg Tab, 600 MG PO BID for 30 Days, MG 12/25/20 Empagliflozin (Jardiance) 25 Mg Tab, 25 MG PO DAILY, TAB 12/25/20 Metoprolol Tartrate (Metoprolol Tartrate) 25 Mg Tab, 25 MG PO BID for 30 Days, MG 12/25/20 Lisinopril (Lisinopril) 5 Mg Tab, 5 MG PO DAILY for 30 Days, MG 12/25/20 Albuterol Sulfate (VENTOLIN MDI) 90 Mcg Ih, 1-2 PUFF IN PRN 07/04/18 Metformin Hydrochloride (Metformin Hcl) 1,000 Mg Tab, 1 TAB PO BID, #60 TAB 5 Refills 02/03/18 Discontinued Scripts Cephalexin (KEFLEX CAPSULE) 250 Mg Cp, 1 CAP PO QID for 4 Days, #28 CAP Prov:FRANCIS COULTER MD 06/25/24 Ibuprofen Micronized (MOTRIN TABLET) 600 Mg Tb, 600 MG PO TID PRN for 5 Days, #15 TAB *Black box warning-NSAIDS can increase risk of AK & hypertension, GI irritation, ulceration, bleed, perferation. Do not use post cardiac surgery. Use short duration/lowest effective dose. Prov:TYRONE BOO MD 07/11/23 Prednisone (Prednisone) 20 Mg Tab, 2 TAB PO DAILY for 5 Days, #10 TAB Prov:JUDY ADLER MD 10/28/21 Current Medications Current Medications Medications (Trade) Dose Ordered Sig/Ciarra Route PRN Reason Start Time Stop Time Status Last Admin Amiodarone HCl (Cordarone Tablet) 200 mg Q12HR PO 02/02/25 22:00 02/02/25 18:53 DC Magnesium Oxide (Mag-Ox Tablet) 400 mg DAILY PO 02/03/25 10:00 02/02/25 18:53 DC Rivaroxaban (Xarelto Tablet) 20 mg QPM PO 02/02/25 18:00 02/02/25 18:53 DC 02/02/25 17:09 Review of Systems Constitutional: reports: fatigue; denies: chills, diaphoresis, fever, malaise, sweats, weakness, others EENTM: denies: blurred vision, double vision, ear bleeding, ear discharge, ear drainage, ear pain, ear ringing, eye pain, eye redness, hearing loss, mouth pain, mouth swelling, nasal discharge, nose bleeding, nose congestion, nose pain, photophobia, tearing, throat pain, throat swelling, voice changes, others Respiratory: reports: shortness of breath; denies: cough, hemoptysis, orthopnea, SOB at rest, SOB with excertion, stridor, wheezing, others Cardiovascular: reports: chest pain, dizzy spells; denies: diaphoresis, Dyspnea on exertion, edema, irregular heart beat, left arm pain, lightheadedness, palpitations, PND, syncope, others Gastrointestinal: denies: abdomen distended, abdominal pain, blood streaked bowels, constipated, diarrhea, dysphagia, difficulty swallowing, hematemesis, melena, nausea, poor appetite, poor fluid intake, rectal bleeding, rectal pain, vomiting, others Genitourinary: denies: burning, dysuria, flank pain, frequency, hematuria, incontinence, penile discharge, penile sore, pain, testicle pain, testicle swelling, urgency, others Neurological: denies: dizziness, fainting, headache, left sided numbness, left sided weakness, numbness, paresthesia, pre-existing deficit, right sided numbness, right sided weakness, seizure, speech problems, tingling, tremors, weakness, others Musculoskeletal: denies: back pain, gout, joint pain, joint swelling, muscle pain, muscle stiffness, neck pain, others Integumetry: denies: bruises, change in color, change in hair/nails, dryness, laceration, lesions, lumps, rash, wounds, others Allergic/Immunocompromised: denies: Difficulty Healing, Frequent Infections, Hives, Itching, others Hematologic/Lymphatic: denies: anemia, blood clots, easy bleeding, easy bruising, swollen glands, others Endocrine: denies: excessive hunger, excessive sweating, excessive thirst, excessive urination, flushing, intolerance to cold, intolerance to heat, unexplained weight gain, unexplained weight loss, others Psychiatric: denies: anxiety, bipolar disorder, depression, hopeless, panic disorder, schizophrenia, sleepless, suicidal, others All Other Systems: Reviewed and Negative Vital Signs Vital Signs Date Time Temp Pulse Resp B/P (MAP) Pulse Ox O2 Delivery O2 Flow Rate FiO2 02/02/25 18:29 Room Air* 0 21 02/02/25 16:36 97.9 101 18 127/85 (99) 96 97.9 Physical Exam GENERAL: Alert and oriented x 3. No acute distress. EYES: PERRL, EOMI. Anicteric. HENT: Moist mucous membranes. LUNGS: Clear to auscultation bilaterally. CARDIOVASCULAR: Irregular rate and rhythm. ABDOMEN: Soft, nontender and nondistended. EXTREMITIES: No edema. NEUROLOGIC: No focal neurological deficits. SKIN: Warm, dry. Labs/Diagnostic Data Labs Test 02/02/25 17:09 02/01/25 05:02 01/31/25 15:27 01/31/25 13:05 Range/Units POC Glucose 146 H 70-106 mg/dl White Blood Count 9.1 4.4-10.8 10^3/uL Red Blood Count 5.67 4.5-5.90 10^6/uL Hemoglobin 16.5 13.5-17.5 g/dL Hematocrit 49.1 41.0-53.0 % Mean Corpuscular Volume 86.6 80.0-100.0 fL Mean Corpuscular Hemoglobin 29.1 28.0-32.0 pg Mean Corpuscular Hemoglobin Concent 33.6 32.0-36.0 g/dL Red Cell Distribution Width 13.5 11.8-14.3 % Platelet Count 205 140-450 10^3/uL Mean Platelet Volume 8.3 6.9-10.8 fL Neutrophils (%) (Auto) 60.6 37.0-80.0 % Lymphocytes (%) (Auto) 26.3 10.0-50.0 % Monocytes (%) (Auto) 10.1 0.0-12.0 % Eosinophils (%) (Auto) 2.5 0.0-7.0 % Basophils (%) (Auto) 0.5 0.0-2.0 % Neutrophils # (Auto) 5.5 1.6-8.6 10 ^3/uL Lymphocytes # (Auto) 2.4 0.4-5.4 10 ^3/uL Monocytes # (Auto) 0.9 0-1.3 10 ^3/uL Eosinophils # (Auto) 0.2 0-0.8 10 ^3/uL Basophils # (Auto) 0 0-0.2 10 ^3/uL Nucleated Red Blood Cells 0.2 % Sodium Level 141 136-145 mmol/L Potassium Level 4.5 3.5-5.1 mmol/L Chloride Level 109 H 98-107 mmol/L Carbon Dioxide Level 23 20-31 mmol/L Anion Gap 9 5-15 Blood Urea Nitrogen 16 9-23 mg/dL Creatinine 0.85 0.700-1.30 mg/dL Glomerular Filtration Rate Calc 96 >90 mL/min BUN/Creatinine Ratio 18.8 10.0-20.0 Serum Glucose 108 H 74-106 mg/dL Calcium Level 9.4 8.7-10.4 mg/dL Total Bilirubin 3.0 H 0.2-1.0 mg/dL Aspartate Amino Transferase (AST) 22 13-40 U/L Alanine Aminotransferase (ALT) 31 7-40 U/L Alkaline Phosphatase 77 46-116 U/L Total Protein 6.4 5.7-8.2 g/dL Albumin 4.1 3.2-4.8 g/dL Urine Color Light-yellow Yellow Urine Clarity Clear Clear Urine pH 5.0 5.0-9.0 Urine Specific [place] 1.021 1.001-1.035 Urine Protein Negative Negative Urine Ketones Negative Negative Urine Blood Negative Negative /uL Urine Nitrite Negative Negative Urine Bilirubin Negative Negative Urine Urobilinogen Normal Negative mg/dL Urine Leukocyte Esterase Negative Negative /uL Urine RBC 1 0 - 3 /hpf Urine Microscopic WBC 1 0-3 /HPF Urine Squamous Epithelial Cells Few <5 /hpf Urine Bacteria None seen None Seen /hpf Urine Glucose 4+ H Normal mg/dL Troponin I High Sensitivity 5 </=54 ng/L Test 01/31/25 12:05 Range/Units Platelet Estimate Adequate Ovalocytes Few Hemoglobin A1c 7.2 H <5.7 % A1C Assessment A Fib with RVR. Hypotension. Dizziness/vertigo. Coronary artery disease. Dyslipidemia. Diabetes mellitus type 2. Plan/Recommendation I agree with your ongoing assessment and care of plan. Telemetry reviewed. Echocardiogram. Xarelto. Coreg, Lisinopril. Lipitor. DVT prophylactics. Nitro SL. Morphine for pain management. Additional plan as per the hospital course. A total of 45 minutes was spent reviewing the patient record, examining the patient, making a diagnostic and therapeutic plan, discussing this plan with medical personnel, following up on diagnostic studies and following the patient for clinical stability excluding any and all procedures. At least 50% of this time was spent in direct, [id number] contact. Plan discussed with: Patient NITA FRAIER MD Feb 02, 2025 19:02
[2025-02-03] MEDS ORDERED: MAGNESIUM OXIDE 400 MG TAB PO SCH (10:00)
--- NOTE | 2025-02-03 12:14 | ECG ---
[facility] Test Date: 2025-01-31 Test Time: 11:48:53 Pat Name: MARY PAYNE Department: ER Room: 0220T B Gender: M Line Service Person: PADMINI : 1960 Requested By: MILKA CASTILLO Order Number: [id number] Reading MD: Brody Green Measurements Intervals [place] Rate: 164 P: 0 UT: 0 QRS: 131 QRSD: 75 T: 22 QT: 280 QTc: 463 Interpretive Statements Atrial fibrillation with rapid V-rate Ventricular premature complex Right axis deviation Low voltage, precordial leads Minimal ST depression Electronically Signed On 02-05-2025 20:30:43 PDT by Brody Green Please click the below link to view image of tracing.
== END 2025-02-02 18:50 | disposition home or self-care (01) | DRG 308 ==
LOC: ER 11:27 → OVERFLOW 16:37 → TELE-CENTR 02-02 16:21
DX: I48.91 Unspecified atrial fibrillation (principal); R57.1 Hypovolemic shock; I25.10 Atherosclerotic heart disease of native coronary artery without angina pectoris; G90.89 Other disorders of autonomic nervous system; M10.9 Gout, unspecified; D72.829 Elevated white blood cell count, unspecified; E78.5 Hyperlipidemia, unspecified; J44.9 Chronic obstructive pulmonary disease, unspecified; E11.42 Type 2 diabetes mellitus with diabetic polyneuropathy; I11.0 Hypertensive heart disease with heart failure; I50.9 Heart failure, unspecified; Z82.49 Family history of ischemic heart disease and other diseases of the circulatory system; Z79.2 Long term (current) use of antibiotics; Z79.899 Other long term (current) drug therapy; Z79.1 Long term (current) use of non-steroidal anti-inflammatories (NSAID); Z79.82 Long term (current) use of aspirin; Z79.84 Long term (current) use of oral hypoglycemic drugs; Z90.49 Acquired absence of other specified parts of digestive tract; Z83.3 Family history of diabetes mellitus; I25.2 Old myocardial infarction; I95.2 Hypotension due to drugs; T46.2X5A Adverse effect of other antidysrhythmic drugs, initial encounter
CPT/HCPCS: 36415; 70450; 71045; 80048; 80053; 81001; 82962; 83036; 84484; 85025; 93005; 93306; 93886; 96365; 99291; G0378; J1815

== ENCOUNTER 2025-07-07 08:06 | Emergency (ER) | payer OTHER, MEDICAID ==
[~2025-07-07] VITALS: Ht 170.2 cm; Wt 98.6 kg
[~2025-07-07 08:06] MED LIST changes: +AMIO200T13 PO; -CEPH250C PO; -IBU600T PO; -PRED20TA2 PO; +RIV20T PO; +TAMS0.4C39 PO
--- NOTE | 2025-07-07 08:27 | ECG ---
[facility] Test Date: 2025-07-07 Test Time: 08:21:05 Pat Name: MARY PAYNE Department: Room: Gender: M [employer]: : 1960 Requested By: JEFF MANLEY Order Number: [id number] Reading MD: Brody Green Measurements Intervals [place] Rate: 66 P: 44 IL: 155 QRS: 66 QRSD: 76 T: 52 QT: 398 QTc: 417 Interpretive Statements Sinus rhythm Low voltage, precordial leads Minimal ST elevation, inferior leads Baseline wander in lead(s) V4 Electronically Signed On 07-07-2025 11:02:20 PST by Brody Green Please click the below link to view image of tracing.
--- NOTE | 2025-07-07 08:45 | ED.PDOC ---
History of Present Illness HPI Comments Mr. Whiting is a 64-year-old male with prior medical history of COPD, type 2 diabetes mellitus, diabetic peripheral neuropathy, and hypertension, who presents today with chief complaint of high blood pressure. The patient states he woke up this morning and had generalized body aches, headache described as bitemporal pressure-like, 7/10 intensity, without aggravating or relieving factors, and left pectoral chest wall discomfort described as sharp, nonradiating, 5/10 intensity, without aggravating factors, relieved by gabapentin, associated with cough with grayish phlegm, nausea, and 1 episode of diarrhea yesterday. He denies fever, nasal congestion or discharge, sore throat, abdominal pain, shortness of breath, vomiting, and palpitations. He took his blood pressure this morning with readings of 165/110 mmHg -> 110/81 mmHg -> 131/98 mmHg -> 150/109 mmHg. He states he reached to the [facility] health line which directed the patient to present to the ED. On initial evaluation, the patient seems well, BP reading of 144/91 mmHg, vitals are stable, he is ambulating without difficulty, and with no overt signs of distress. Chief Complaint: High Blood Pressure Time Seen by MD: 08:12 Primary Care Provider: TENISHA Allergies: Coded Allergies: NO KNOWN ALLERGIES (Unverified , 02/03/18) Home Meds Active Scripts Rivaroxaban (Xarelto Tablet) 20 Mg Tb, 20 MG PO QPM for 30 Days, #30 TAB Prov:YVONNE HENRIQUEZ MD 02/02/25 Amiodarone HCl (Amiodarone HCl) 200 Mg Tab, 200 MG PO Q12HR for 30 Days, #60 TAB Prov:YVONNE HENRIQUEZ MD 02/02/25 Atorvastatin Calcium (Lipitor) 10 Mg Tab, 1 TAB PO DAILY, #30 TAB Prov:JUDY ADLER MD 10/28/21 Acetaminophen (Tylenol 8 Hour Arthritis) 650 Mg Tab, 650 MG PO TID for 10 Days, #30 TAB Prov:BRENDON RODRIGUEZ 09/03/21 Reported Medications Tamsulosin Hcl (Tamsulosin Hcl) 0.4 Mg Cap, CAP PO 01/31/25 Dulaglutide (Trulicity) 1.5 Mg/0.5 Ml Inj, 0.5 ML SC QWEDNESDAY INJECT 0.5 ML (1 AND 1/2 MILLIGRAMS) SC Q Monday01/06/21 Alogliptin Benzoate (Alogliptin) 25 Mg Tab, 25 MG PO DAILY, TAB 12/25/20 Pioglitazone Hydrochloride (Actos) 15 Mg Tab, 15 MG PO DAILY, TAB 12/25/20 Aspirin (Aspir-Low) 81 Mg Tab, 81 MG PO DAILY for 30 Days, MG 12/25/20 Gabapentin (Gabapentin) 600 Mg Tab, 600 MG PO BID for 30 Days, MG 12/25/20 Empagliflozin (Jardiance) 25 Mg Tab, 25 MG PO DAILY, TAB 12/25/20 Metoprolol Tartrate (Metoprolol Tartrate) 25 Mg Tab, 25 MG PO BID for 30 Days, MG 12/25/20 Lisinopril (Lisinopril) 5 Mg Tab, 5 MG PO DAILY for 30 Days, MG 12/25/20 Albuterol Sulfate (VENTOLIN MDI) 90 Mcg Ih, 1-2 PUFF IN PRN 07/04/18 Metformin Hydrochloride (Metformin Hcl) 1,000 Mg Tab, 1 TAB PO BID, #60 TAB 5 Refills 02/03/18 Mode of Arrival: Ambulatory Past Medical History PAST MEDICAL HISTORY: Angina, CAD, COPD, DM, Gout, High Lipids, HTN, HI Surgical History: Cholecystectomy Surgical History (Other): Bilateral mensicus repair, Ankle surgery Family History Family History: Reviewed,noncontributory to illness, Family hx of DM, Family hx of heart jessica Social History Smoker: Non-Smoker, Quit Greater Than 1 Year (Previously smoked 1 pack a day for 50 years, quit 11years ago ) Alcohol: Denies ETOH Use Drugs: Denies Drug Use, Cocaine (Previously used cocaine, quit 11 yers ago ), Heroin (Previously used heroin for 40 years with cessation 11 years, ) Lives In: Home Constitutional: reports: others (Generalized body aches ); denies: chills, diaphoresis, fatigue, fever, malaise, sweats, weakness EENTM: reports: blurred vision, nose pain; denies: double vision, ear ringing, mouth pain, nasal discharge, nose congestion, throat pain Respiratory: reports: cough, stridor; denies: hemoptysis, orthopnea, shortness of breath Cardiovascular: denies: chest pain, dizzy spells, diaphoresis, Dyspnea on exertion, edema, irregular heart beat, left arm pain, lightheadedness, palpitations Gastrointestinal: reports: diarrhea, nausea; denies: abdomen distended, abdominal pain, blood streaked bowels, constipated, dysphagia, difficulty swallowing, hematemesis, melena, poor appetite, poor fluid intake, rectal bleeding, vomiting Genitourinary: denies: burning, dysuria, flank pain, frequency, hematuria, inco ntinence, pain, urgency Neurological: reports: headache; denies: dizziness, fainting, numbness, paresthesia, pre-existing deficit, seizure, tremors, weakness Musculoskeletal: reports: others (Chest wall pain ); denies: back pain, joint pain, joint swelling, muscle pain, muscle stiffness, neck pain Integumetry: denies: bruises, laceration, lesions, lumps, rash, wounds Physical Exam General Appearance: Normal HEENT: Normal ENT Inspection, PERRL/EOMI, Pharynx Normal Neck: Full Range of Motion, Non-Tender, Normal Inspection Respiratory: Other (Bilateral chest expansion, pain on palpation of medial left pectoral region, clear lungs bilaterally, vesicular murmurs present in almost all lung [place], no associated crackles or wheezes) Cardiovascular: No Edema, No Murmur, Normal Peripheral Pulses, Regular Rate/Rhythm Breast Exam: Deferred Gastrointestinal: Other ( Abdomen nondistended, normal bowel sounds, soft, mild pain to palpation of epigastrium, no palpable masses.) Genitalia: Deferred Pelvic: Deferred Rectal: Deferred Extremities: Normal capillary refill, Normal inspection, Normal range of motion, Non-tender, No pedal edema Neurologic: Alert, Normal Affect, Normal Mood Cerebellar Function: Normal Reflexes: NOT DONE Skin: Normal Color, Other Peripheral Pulses: 3+ dorsalis pedis (R), 3+ dorsalis pedis (L) Lymphatic: Other (No cervical adenopathy ) Was a procedure done? Was a procedure done?: No EKG EKG : Pulse Rate (adult): 66 Pilot: Normal Block: None Hypertrophy: None ST: Nonsp Differential Dx Considerations may include: Hypertensive urgency, hypertensive emergency, ACS, HI, viral syndrome, acute gastroenteritis, GERD, gastritis, muscle strain X-Ray, Labs, Meds, VS Vital Signs Date Time Temp Pulse Resp B/P (MAP) Pulse Ox O2 Delivery O2 Flow Rate FiO2 07/07/25 10:12 98.0 07/07/25 09:47 98.3 79 17 117/85 (96) 99 98.3 07/07/25 09:11 66 07/07/25 09:09 Room Air* 0 21 07/07/25 08:21 66 07/07/25 08:09 97.7 81 19 144/91 98 97.7 Lab Test 07/07/25 09:10 07/07/25 08:45 Range/Units White Blood Count 7.8 4.4-10.8 10^3/uL Red Blood Count 5.69 4.5-5.90 10^6/uL Hemoglobin 16.6 13.5-17.5 g/dL Hematocrit 49.8 41.0-53.0 % Mean Corpuscular Volume 87.5 80.0-100.0 fL Mean Corpuscular Hemoglobin 29.1 28.0-32.0 pg Mean Corpuscular Hemoglobin Concent 33.3 32.0-36.0 g/dL Red Cell Distribution Width 13.5 11.8-14.3 % Platelet Count 225 140-450 10^3/uL Mean Platelet Volume 7.7 6.9-10.8 fL Neutrophils (%) (Auto) 61.1 37.0-80.0 % Lymphocytes (%) (Auto) 27.6 10.0-50.0 % Monocytes (%) (Auto) 6.7 0.0-12.0 % Eosinophils (%) (Auto) 3.7 0.0-7.0 % Basophils (%) (Auto) 0.9 0.0-2.0 % Neutrophils # (Auto) 4.7 1.6-8.6 10 ^3/uL Lymphocytes # (Auto) 2.1 0.4-5.4 10 ^3/uL Monocytes # (Auto) 0.5 0-1.3 10 ^3/uL Eosinophils # (Auto) 0.3 0-0.8 10 ^3/uL Basophils # (Auto) 0.1 0-0.2 10 ^3/uL Nucleated Red Blood Cells 0.1 % Sodium Level 143 136-145 mmol/L Potassium Level 4.1 3.5-5.1 mmol/L Chloride Level 107 98-107 mmol/L Carbon Dioxide Level 24 20-31 mmol/L Anion Gap 12 5-15 Blood Urea Nitrogen 14 9-23 mg/dL Creatinine 0.84 0.700-1.30 mg/dL Glomerular Filtration Rate Calc 97 >90 mL/min BUN/Creatinine Ratio 16.7 10.0-20.0 Serum Glucose 101 74-106 mg/dL Calcium Level 9.0 8.7-10.4 mg/dL Troponin I High Sensitivity < 3 L </=54 ng/L Urine Color Yellow Yellow Urine Clarity Clear Clear Urine pH 5.5 5.0-9.0 Urine Specific [place] 1.036 H 1.001-1.035 Urine Protein Negative Negative Urine Ketones Negative Negative Urine Blood Negative Negative /uL Urine Nitrite Negative Negative Urine Bilirubin Negative Negative Urine Urobilinogen Normal Negative mg/dL Urine Leukocyte Esterase Negative Negative /uL Urine RBC 1 0 - 3 /hpf Urine Microscopic WBC 1 0-3 /HPF Urine Squamous Epithelial Cells Few <5 /hpf Urine Bacteria None seen None Seen /hpf Urine Mucus Few None Seen Urine Glucose 4+ H Normal mg/dL Current Medications Medications (Trade) Dose Ordered Sig/Ciarra Route Start Time Stop Time Status Last Admin Acetaminophen (Tylenol Tablet) 650 mg ONCE ONCE PO 07/07/25 09:00 07/07/25 10:01 DC 07/07/25 10:12 Time of 1ST Reevaluation: 10:30 Reevaluation 1ST: Improved Patient Education/Counseling: Diagnosis, Treatment Family Education/Counseling: No Family Present Comments The patient presented today with chief complaint of high blood pressure On initial evaluation, the patient seems well, BP reading of 144/91 mmHg, vitals are stable, he is ambulating without difficulty, and with no overt signs of distress. Physical exam is positive for pain on palpation of medial left pectoral chest wall and mild pain on epigastric palpation CBC is within normal range, UA significant for 4+ glucose, BMP within normal range, troponins are negative EKG shows sinus rhythm Chest xray significant for increased interstitial prominence which may represent pulmonary vascular congestion and/or viral pneumonia. Acetaminophen 650 mg PO was given for headache Based on the data, it is unlikely that the patient is presenting with an HI or ACS. Suspicion of hypertensive urgency in the setting of possible viral syndrome. On reevaluation, patient states he feels well, headache as improved. BP readings of 117/85 mmHg, other vitals continue to be stable. He is considered stable for discharge home. SEPSIS Sepsis Screen Date sepsis recognized/suspect: Jul 07, 2025 Time Sepsis recognized/suspect: 0809 Recent Procedure: No On Antibiotic Therapy: No Respiratory Rate >20: No Heart Rate >90: No Temp<36 C (96.8 F) or >38.3 C: No SBP <90 or MAP <65 mmHG: No New Acute Mental Status Change: No Is the patient on CPAP, BIPAP,: No Physician Orders Troponin-I Hs (07/07/25 09:45) Chest Xray 1 View (07/07/25 08:51) Vital Signs Date Time Temp Pulse Resp B/P (MAP) Pulse Ox O2 Delivery O2 Flow Rate FiO2 07/07/25 10:12 98.0 07/07/25 09:47 98.3 79 17 117/85 (96) 99 98.3 07/07/25 09:11 66 07/07/25 09:09 Room Air* 0 21 07/07/25 08:21 66 07/07/25 08:09 97.7 81 19 144/91 98 97.7 Laboratory Tests Test 07/07/25 09:10 White Blood Count 7.8 10^3/uL (4.4-10.8) Medications Medications Dose Ordered Sig/Ciarra Route Start Time Stop Time Status Last Admin Dose Admin Acetaminophen 650 mg ONCE ONCE PO 07/07/25 09:00 07/07/25 10:01 DC 07/07/25 10:12 Departure 1 Departure Time of Disposition: 10:54 Impression: Primary Impression: Hypertensive urgency Additional Impression: Viral syndrome Disposition: HOME / SELF CARE / HOMELESS Condition: Serious Additional Instructions: You presented today with chief complaint of high blood pressure On initial evaluation, you seem well, BP reading of 144/91 mmHg anhd vitals are stable Physical exam is positive for pain on palpation of medial left pectoral chest wall and mild pain on epigastric palpation Your work up which includes CBC, BMP, urine analysis, troponins, and EKG are benign Chest xray showed for increased interstitial prominence which may represent pulmonary vascular congestion and/or viral pneumonia. Acetaminophen 650 mg PO was given for your headache Based on the data, it is unlikely that you are is presenting with an HI or ACS, GERD, gastritis, or gastroenteritis. On reevaluation, on reevaluation, your pain had improved and your blood pressure was 117/89 mmHg, other vitals continued to be stable You are considered stable for discharge home. We recommend you follow up with your PCP within the 1 week. If your symptoms persist/worsen or should you have any further questions or concerns, please return to the ED All findings, implications, and recommendations have been explained to the patient. All questions have been answered. Discharged With: Self Critical Care Note Critical Care Time?: No Stability Stability form required: GRADY Manley RESIDENT Jul 07, 2025 08:45
[2025-07-07 09:23] LABS: Urine Protein, UAD Negative (Negative)
[2025-07-07 09:30] LABS: Hematocrit 49.8 % (41.0-53.0); Hemoglobin 16.6 g/dL (13.5-17.5); Mean Corpuscular Hemoglobin 29.1 pg (28.0-32.0); Mean Corpuscular Volume 87.5 fL (80.0-100.0); Nucleated Red Blood Cells % 0.1 %
--- NOTE | 2025-07-07 09:35 | DVH ---
CHEST RADIOGRAPH Indication: Cough Technique: Single frontal view of the chest was obtained COMPARISON: XY CHEST PORTABLE on DOS: 01/31/25, XY CHEST PORTABLE on DOS: 06/22/24, XY CHEST PORTABLE on DOS: 07/15/23, XY CHEST PORTABLE on DOS: 07/11/23, CHEST PORTABLE on DOS: 10/26/21 FINDINGS: Lines and Tubes: None Lungs: Increased interstitial prominence. This may represent pulmonary vascular congestion and/or viral pneumonia. Pleura: No effusion. No pneumothorax. Cardiomediastinal contours: Unremarkable Bones: Unremarkable IMPRESSION: Increased interstitial prominence. This may represent pulmonary vascular congestion and/or viral pneumonia.
[2025-07-07 09:53] LABS: Potassium 4.1 mmol/L (3.5-5.1); Sodium 143 mmol/L (136-145)
[2025-07-07 09:54] LABS: Calcium 9.0 mg/dL (8.7-10.4); Carbon Dioxide 24 mmol/L (20-31)
[2025-07-07 09:59] LABS: BUN/Creatinine Ratio 16.7 (10.0-20.0); Blood Urea Nitrogen 14 mg/dL (9-23); Glucose 101 mg/dL (74-106)
[2025-07-07] MEDS: ACETAMINOPHEN 325 MG TAB PO ONE (10:12)
[2025-07-07 10:20] LABS: Anion Gap 12 (5-15); Chloride 107 mmol/L (98-107)
[2025-07-07 11:14] VITALS: BP 117/67; PULSE 75; RESP 16; O2SAT 98
[2025-07-07 11:18] VITALS: TEMP 98.4
== END 2025-07-07 11:17 | disposition home or self-care (01) ==
LOC: ER 08:06
DX: I16.0 Hypertensive urgency (principal); B34.9 Viral infection, unspecified; I25.10 Atherosclerotic heart disease of native coronary artery without angina pectoris; I10 Essential (primary) hypertension; J44.9 Chronic obstructive pulmonary disease, unspecified; Z79.899 Other long term (current) drug therapy; Z90.49 Acquired absence of other specified parts of digestive tract
CPT/HCPCS: 36415; 71045; 80048; 81001; 84484; 85025; 93005